=== PATIENT | male | born 1930 | race Caucasian/White ===

== ENCOUNTER 2018-07-01 14:35 | Emergency (ER) | payer MEDICARE, BC ==
[2018-07-01 14:51] VITALS: BP 160/68
[2018-07-01] MEDS ORDERED: Acetaminophen 325 MG Tab PO ONE (15:06)
--- NOTE | 2018-07-01 15:06 | EDM.PDOC ---
ED HPI GENERAL MEDICAL PROBLEM - General Chief Complaint: Genitourinary Problem Stated Complaint: UNABLE TO URINATE Time Seen by Provider: 07/01/18 15:01 Source of Information: Reports: Patient, Family ( and daughter) History Limitations: Reports: Other (Mildly hard of hearing.) - History of Present Illness INITIAL COMMENTS - FREE TEXT/NARRATIVE: 80-year-old male attends the ED at the request of the walk-in clinic across the street. He presented there and he was hypoxic with O2 sats of 88%. Pristiq complaint was burning her severe dysuria with urination. States he last went about 11:00 this morning. They also identified him to be febrile 102.3. This cannot be confirmed here his temp to here is 99.1. Patient denies any chills or fever. States he ate a good dinner and some breakfast. No nausea or vomiting. Bowels did work normally this morning. He said previous prostate cancer with cesium seed implants many years ago. Last PSA was less than 0.01. Sed prostate infection or bladder infection recently. States it wesley at the initiation of voiding. Has not any hematuria. Onset: Sudden Onset Date: 06/30/18 Duration: Hour(s): (Noticed some mild burning with voiding yesterday evening but worse this morning overnight.) Location: Reports: Other (Dysuria is not aware that he had a fever. He's always short of breath on exertion.) Quality: Reports: Other Severity: Moderate (Dyspnea on exertion moderate dysuria) Improves with: Reports: Rest Worsens with: Reports: None Context: Denies: Activity, Exercise, Lifting, Sick Contact, Trauma, Other Associated Symptoms: Reports: Cough, Malaise, Shortness of Breath (Chronically) . Denies: No Other Symptoms, Confusion, Chest Pain, cough w sputum (Chronic cough nonproductive), Diaphoresis, Fever/Chills, Headaches Treatments ASSISTANT DEAN OF STUDENTS: Reports: Other (see below) Other Treatments ASSISTANT DEAN OF STUDENTS: none Bladder Pain Score (Numeric/FACES): 5 - Related Data Allergies Allergy/AdvReac Type Severity Reaction Status Date / Time No Known Allergies Allergy Verified 06/08/14 18:58 Home Meds: Home Meds Bicalutamide [Casodex] 50 mg PO DAILY 06/08/14 [History] Doxazosin [Cardura] 2 mg PO DAILY 06/08/14 [History] Metoprolol Tartrate 100 mg PO DAILY 06/08/14 [History] Quinapril [Accupril] 40 mg PO DAILY 06/08/14 [History] Simvastatin [Zocor] 20 mg PO DAILY 06/08/14 [History] Verapamil HCl [Verapamil ER] 240 mg PO DAILY 06/08/14 [History] hydroCHLOROthiazide [Hydrochlorothiazide] 25 mg PO DAILY 06/08/14 [History] levoFLOXacin [Levaquin] 500 mg PO DAILY #9 tab 07/01/18 [Rx] Past Medical History HEENT History: Reports: Cataract Cardiovascular History: Reports: High Cholesterol, Hypertension Gastrointestinal History: Reports: Chronic Constipation Genitourinary History: Reports: Prostate Disorder, Other (See Below) Other Genitourinary History: void issues Oncologic (Cancer) History: Reports: Prostate Social & Family History - Living Situation & Occupation Living situation: Reports: Occupation: Retired ED ROS GENERAL - Review of Systems Review Of Systems: See Below Constitutional: Reports: Malaise, Fatigue. Denies: Fever, Chills, Decreased Appetite HEENT: Reports: Glasses, Hearing Loss (Moderate) Respiratory: Reports: Shortness of Breath, Cough. Denies: Wheezing, Pleuritic Chest Pain (On exertion chronically), Sputum Cardiovascular: Reports: Blood Pressure Problem, Dyspnea on Exertion ( Chronically), Lightheadedness. Denies: Chest Pain, Claudication, Edema, Orthopnea (On medication for hypertension) Endocrine: Reports: Fatigue GI/Abdominal: Denies: Abdominal Pain, Constipation : Reports: Other (Some urinary dribbling since he had prostate treated with cesium seed implants greater than 20 years ago. Previous history of prostate cancer. Last PSA was less than 0.1) Musculoskeletal: Reports: Neck Pain, Shoulder Pain, Back Pain, Joint Pain ( Knees and hips) Skin: Reports: No Symptoms Neurological: Reports: Other Psychiatric: Reports: No Symptoms (Mild short-term memory impairment) Hematologic/Lymphatic: Reports: No Symptoms Immunologic: Reports: No Symptoms ED EXAM, RENAL/ - Physical Exam Exam: See Below Exam Limited By: No Limitations General Appearance: Alert, WD/WN, No Apparent Distress, Other (Test feel mildly warm to palpation.) Respiratory/Chest: No Accessory Muscle Use, Rales (Patient has been on to the lower 25% of both lung lane slightly worse on the right side as compared to the left.). No: Lungs Clear, Normal Breath Sounds, Respiratory Distress, Rhonchi, Wheezing Cardiovascular: Regular Rate, Rhythm, No Gallop, No Murmur, No Rub. No: Normal Peripheral Pulses, No Edema GI/Abdominal: Normal Bowel Sounds, Soft, Non-Tender, No Organomegaly, No Abnormal Bruit, No Mass, Pelvis Stable, Other (Bladder is not palpable abdominally.) Back Exam: Normal Inspection, Decreased Range of Motion. 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 There is also Q waves in 3 and aVF compatible with old inferior wall myocardial infarction. There is decreased voltage in both the limb and precordial leads compose COPD pattern.) ST-T: Normal QT: Normal EKG Interpretation Comments: Abnormal ECG Course - Vital Signs Last Recorded V/S: Last Vital Signs Temp 37.4 C 07/01/18 15:36 Pulse 86 07/01/18 14:50 Resp 14 07/01/18 14:50 BP 160/68 H 07/01/18 14:50 Pulse Ox 93 L 07/01/18 15:54 - Orders/Labs/Meds Orders: Active Orders 24 hr Category Date Time Status Bladder Scan [RC] ASDIRECTED Care 07/01/18 15:03 Active EKG Documentation Completion [RC] STAT Care 07/01/18 15:02 Active Oxygen Therapy [RC] ASDIRECTED Care 07/01/18 15:02 Active Peripheral IV Care [RC] . DIRECTED Care 07/01/18 15:11 Active CULTURE BLOOD [BC] Stat Lab 07/01/18 15:15 Received CULTURE BLOOD [BC] Stat Lab 07/01/18 15:30 Received CULTURE URINE [RM] Stat Lab 12/30/18 15:11 Ordered Blood Culture x2 Reflex Set [OM.PC] Stat Oth 07/01/18 15:02 Ordered Peripheral IV Insertion Adult [OM.PC] Stat Oth 07/01/18 15:11 Ordered Labs: Laboratory Tests 07/01/18 07/01/18 07/01/18 Range/Units 15:15 15:15 15:15 WBC 6.04 (4.23-9.07) K/mm3 RBC 4.34 L (4.63-6.08) M/mm3 Hgb 13.3 L (13.7-17.5) gm/L Hct 41.0 (40.1-51.0) % MCV 94.5 H (79.0-92.2) fl MCH 30.6 (25.7-32.2) pg MCHC 32.4 (32.2-35.5) g/dl RDW Std Deviation 43.4 (35.1-43.9) fL Plt Count 167 (163-337) K/mm3 MPV 10.1 (9.4-12.3) fl Neutrophils % (Manual) 62 H (40-60) % Band Neutrophils % 1 (0-10) % Lymphocytes % (Manual) 22 (20-40) % Atypical Lymphs % 0 % Monocytes % (Manual) 13 H (2-10) % Eosinophils % (Manual) 2 (0.8-7.0) % Basophils % (Manual) 0 L (0.2-1.2) Toxic Granulation 1+ slight Platelet Estimate Adequate Plt Morphology Comment Normal RBC Morph Comment Normal PT 10.6 (9.5-12.1) SECONDS INR 0.97 Sodium 145 (136-145) mEq/L Potassium 4.2 (3.5-5.1) mEq/L Chloride 104 (98-107) mEq/L Carbon Dioxide 34 H (21-32) mEq/L Anion Gap 11.2 (5-15) BUN 40 H (7-18) mg/dL Creatinine 1.8 H (0.7-1.3) mg/dL Est Cr Clr Drug Dosing 30.21 mL/min Estimated GFR (MDRD) 36 (>60) mL/min BUN/Creatinine Ratio 22.2 H (14-18) Glucose 142 H (83-115) mg/dL Calcium 9.3 (8.5-10.1) mg/dL Magnesium 2.2 (1.8-2.4) mg/dl Total Bilirubin 0.3 (0.2-1.0) mg/dL AST 20 (15-37) U/L ALT 25 (16-63) U/L Alkaline Phosphatase 68 (46-116) U/L CK-MB (CK-2) 1.6 (0-3.6) ng/ml Troponin I < 0.017 (0.00-0.056) ng/mL C-Reactive Protein < 0.2 (<1.0) mg/dL NT-Pro-B Natriuret Pep (0-450) pg/mL Total Protein 7.4 (6.4-8.2) g/dl Albumin 3.7 (3.4-5.0) g/dl Globulin 3.7 gm/dL Albumin/Globulin Ratio 1.0 (1-2) Urine Color (Yellow) Urine Appearance (Clear) Urine pH (5.0-8.0) Ur Specific [place] (1.005-1.030) Urine Protein (Negative) Urine Glucose (UA) (Negative) Urine Ketones (Negative) Urine Occult Blood (Negative) Urine Nitrite (Negative) Urine Bilirubin (Negative) Urine Urobilinogen (0.2-1.0) Ur Leukocyte Esterase (Negative) Urine RBC (0-5) /hpf Urine WBC (0-5) /hpf Ur Epithelial Cells Ur Squamous Epith Cells (0-5) /hpf Urine Bacteria (FEW) /hpf Hyaline Casts (0-5) /lpf Urine Mucus (FEW) /hpf 07/01/18 07/01/18 Range/Units 15:15 16:00 WBC (4.23-9.07) K/mm3 RBC (4.63-6.08) M/mm3 Hgb (13.7-17.5) gm/L Hct (40.1-51.0) % MCV (79.0-92.2) fl MCH (25.7-32.2) pg MCHC (32.2-35.5) g/dl RDW Std Deviation (35.1-43.9) fL Plt Count (163-337) K/mm3 MPV (9.4-12.3) fl Neutrophils % (Manual) (40-60) % Band Neutrophils % (0-10) % Lymphocytes % (Manual) (20-40) % Atypical Lymphs % % Monocytes % (Manual) (2-10) % Eosinophils % (Manual) (0.8-7.0) % Basophils % (Manual) (0.2-1.2) Toxic Granulation Platelet Estimate Plt Morphology Comment RBC Morph Comment PT (9.5-12.1) SECONDS INR Sodium (136-145) mEq/L Potassium (3.5-5.1) mEq/L Chloride (98-107) mEq/L Carbon Dioxide (21-32) mEq/L Anion Gap (5-15) BUN (7-18) mg/dL Creatinine (0.7-1.3) mg/dL Est Cr Clr Drug Dosing mL/min Estimated GFR (MDRD) (>60) mL/min BUN/Creatinine Ratio (14-18) Glucose (83-115) mg/dL Calcium (8.5-10.1) mg/dL Magnesium (1.8-2.4) mg/dl Total Bilirubin (0.2-1.0) mg/dL AST (15-37) U/L ALT (16-63) U/L Alkaline Phosphatase (46-116) U/L CK-MB (CK-2) (0-3.6) ng/ml Troponin I (0.00-0.056) ng/mL C-Reactive Protein (<1.0) mg/dL NT-Pro-B Natriuret Pep 90 (0-450) pg/mL Total Protein (6.4-8.2) g/dl Albumin (3.4-5.0) g/dl Globulin gm/dL Albumin/Globulin Ratio (1-2) Urine Color Yellow (Yellow) Urine Appearance Slt cloudy H (Clear) Urine pH 7.5 (5.0-8.0) Ur Specific [place] 1.020 (1.005-1.030) Urine Protein Trace H (Negative) Urine Glucose (UA) Negative (Negative) Urine Ketones Negative (Negative) Urine Occult Blood Negative (Negative) Urine Nitrite Negative (Negative) Urine Bilirubin Negative (Negative) Urine Urobilinogen 0.2 (0.2-1.0) Ur Leukocyte Esterase Negative (Negative) Urine RBC Not seen (0-5) /hpf Urine WBC Not seen (0-5) /hpf Ur Epithelial Cells Not Reportable Ur Squamous Epith Cells Not seen (0-5) /hpf Urine Bacteria Not seen (FEW) /hpf Hyaline Casts 0-5 (0-5) /lpf Urine Mucus Rare H (FEW) /hpf Meds: Medications Discontinued Medications Generic Name Dose Route Start Last Admin Trade Name Shyann PRN Reason Stop Dose Admin Acetaminophen 650 mg 07/01/18 15:06 07/01/18 15:36 Tylenol PO 07/01/18 15:07 650 mg NOW ONE Administration Furosemide 40 mg 07/01/18 15:11 07/01/18 15:50 Lasix IVPUSH 07/01/18 15:12 40 mg NOW ONE Administration Ceftriaxone Sodium 2 gm/ 100 mls @ 200 mls/hr 07/01/18 17:30 07/01/18 17:47 Sodium Chloride IV 200 mls/hr Q24H [place] Administration Levofloxacin 500 mg 07/01/18 17:23 07/01/18 17:46 Levaquin PO 07/01/18 17:24 500 mg ONETIME ONE Administration Sodium Chloride 10 ml 07/01/18 15:11 07/01/18 15:50 Saline Flush FLUSH 10 ml ASDIRECTED PRN Administration Keep Vein Open - Radiology Interpretation Free Text/Narrative:: 88-year-old male presents to the ED with a low-grade fever hypoxia at rest 88-90 % on room air. History of complete however his dysuria that started last evening and is worsened today. Feels like he does not empty his bladder completely. She said previous prostate cancer treated by cesium seed implants. Patient has a low-grade fever clinically and he is hypoxic at 88% on room air. Clinically he is in congestive heart failure with crackles bilaterally to the lower 20-25% of lung lane bilaterally. Plan oxygen at 3 L/m by nasal cannula. We'll give him Lasix 40 mg IV. Given Tylenol 650 mg by mouth for fever relief. Urinalysis and urine culture. One view chest x-ray. Routine labs include cardiac markers and BNP and serum magnesium. - Re-Assessments/Exams Free Text/Narrative Re-Assessment/Exam: 07/01/18 16:55 Labs reveal a normal white count at 6.04. 62% neutrophils 1% band cells. Hemoglobin is 13.3 with hematocrit of 41.0. MCV is slightly elevated at 94.5. PT is 10.6 with an INR of 0.97. Sodium 145 with a potassium of 4.2. Chloride 104 the bicarbonate 34 i.e. CO2 retainer. Anion gap is 11.2. B1 is 40 with a creatinine of 1.8. Estimated GFR is only 36 a stage III chronic kidney disease. Glucose is 142. Calcium is 9.3. Magnesium normal at 2.2. Liver function is normal. CPK MB fraction is 1.6. Troponin I is less than 0.017. C- reactive protein is less than 0.2. BNP is 90. Urinalysis is pending 07/01/18 17:17 Urinalysis is slightly cloudy but essentially negative for infection. For likely has a mild degree of prostatitis with urethritis causing his current symptoms. Placed him on Levaquin 500 mg daily for the next 10 days. Chest x-ray reveals minimal discoid atelectasis both lung bases. Lungs are otherwise clear. 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 Bony structures are quite osteopenic. Degenerative changes are noted with spurring throughout the mid thoracic spine. 07/01/18 17:23 patient still has a low-grade fever clinically. His BNP came back and 90 therefore the crackles I can hear both lung bases are secondary to pulmonary fibrosis she shows no signs of congestive failure. He still has significant dysuria and I suspect has urethritis prostatitis. I'm going to give him a 2 g of Rocephin IV and Levaquin 500 mg by mouth. The plan would still be a to allow him to go home on Levaquin 500 milligrams daily for the next 9 days. 07/01/18 18:24 patient has voided about 1000 mils of urine since having the Lasix 40 mg IV given initially as I felt he was in congestive heart failure. However his BNP came back and 90. On reassessment he still has significant crackles at both bases this is going to be due to pulmonary fibrosis of which the patient was not aware of nor was I. Is completed a 2 g of Rocephin IV and will be discharged to home. First dose of Levaquin 500 mg as be given IV as well for severe dysuria likely due to low-grade urethritis possible prostatitis. He still is a low-grade fever. His white count however is within the normal range. I'm going to place him on Levaquin 500 mg daily for another 9 days and they request this be sent to [facility] pharmacy. He may have it delivered tomorrow. Departure - Departure Time of Disposition: 18:25 Disposition: Home, Self-Care 01 Condition: Fair Clinical Impression: UTI, Urinary tract infectious disease - Discharge Information *PRESCRIPTION DRUG MONITORING PROGRAM REVIEWED*: Not Applicable *COPY OF PRESCRIPTION DRUG MONITORING REPORT IN PATIENT MARGARITO: Not Applicable Prescriptions: levoFLOXacin [Levaquin] 500 mg PO DAILY #9 tab Instructions: Urinary Tract Infection, Adult Referrals: Maurice Liz MD [Primary Care Provider] - Forms: ED Department Discharge Additional Instructions: Evaluation in the emergency room today in regards to development of significant dysuria which means painful urination especially at the start of voiding. This suggests there is infection in the urethra and likely where travels through the prostate gland were you have had previous cancer. The urinalysis proved to show only a small amount of pus cells. You do have a low-grade fever however. Remainder the examination revealed a normal white count at this time with no signs of severe systemic infection. Listening to your lungs. That you had a lot of fluid buildup in your lungs but this proved to be due to scar tissue and the bottom of both lungs which we call pulmonary fibrosis. Failure were normal. Sign of heart related illness. Continue Tylenol 650 mg every 4-6 hours as needed for fever relief. Antibiotics were started in the emergency room Rocephin 2 g IV and Levaquin 500 mg by mouth. He will need to take Levaquin 500 mg once daily for the next 9 days every day at suppertime. Send prescription to her [facility] pharmacy and you could call them in the morning to have a delay relative this is your desire. - My Orders Last 24 Hours: My Active Orders 07/01/18 15:02 EKG Documentation Completion [RC] STAT Oxygen Therapy [RC] ASDIRECTED Blood Culture x2 Reflex Set [OM.PC] Stat 07/01/18 15:03 Bladder Scan [RC] ASDIRECTED 07/01/18 15:11 Peripheral IV Care [RC] . DIRECTED CULTURE URINE [RM] Stat Peripheral IV Insertion Adult [OM.PC] Stat 07/01/18 15:15 CULTURE BLOOD [BC] Stat 07/01/18 15:30 CULTURE BLOOD [BC] Stat - Assessment/Plan Last 24 Hours: My Active Orders 07/01/18 15:02 EKG Documentation Completion [RC] STAT Oxygen Therapy [RC] ASDIRECTED Blood Culture x2 Reflex Set [OM.PC] Stat 07/01/18 15:03 Bladder Scan [RC] ASDIRECTED 07/01/18 15:11 Peripheral IV Care [RC] . DIRECTED CULTURE URINE [RM] Stat Peripheral IV Insertion Adult [OM.PC] Stat 07/01/18 15:15 CULTURE BLOOD [BC] Stat 07/01/18 15:30 CULTURE BLOOD [BC] Stat
[2018-07-01] MEDS ORDERED: Furosemide 40 MG/4 ML VIAL IVPUSH ONE (15:11)
[2018-07-01] MEDS ORDERED: Sodium Chloride 0.9% 10 ML Syringe FLUSH PRN (15:11)
[2018-07-01] MEDS ORDERED: Levofloxacin 250 MG Tab PO ONE (17:23)
[2018-07-01] MEDS ORDERED: cefTRIAXone 2 GM in Sodium Chloride 0.9% 100 ML IV SCH (17:30)
--- NOTE | 2018-07-01 17:58 | CR ---
Chest: Portable view of the chest was obtained. Comparison: No prior chest x-ray is available. Minimal discoid atelectasis is seen within both lung bases. Lungs otherwise are clear. Heart size is normal. Ectatic or aneurysmal thoracic aorta is noted. Bony structures are osteopenic. Slight degenerative endplate spurring is scattered within the spine. Impression: 1. Ectatic or aneurysmal thoracic aorta. 2. Minimal basilar atelectasis. 3. Other incidental findings. Nothing acute is seen. Diagnostic code #2
== END 2018-07-01 18:40 | disposition home or self-care (01) ==
LOC: JD.ED 14:35
DX: N39.0 Urinary tract infection, site not specified (principal); R06.02 Shortness of breath; I10 Essential (primary) hypertension; Z79.899 Other long term (current) drug therapy
CPT/HCPCS: 36415; 51798; 71045; 80053; 81001; 82553; 83735; 83880; 84484; 85007; 85027; 85610; 86140; 87040; 87086; 93005; 96365; 96375; 99284; A9270; J0696; J1940; J7030

== ENCOUNTER 2018-10-02 07:50 | Emergency (ER) | payer MEDICARE, BC ==
--- NOTE | 2018-10-02 08:44 | EDM.PDOC ---
ED HPI GENERAL MEDICAL PROBLEM - General Chief Complaint: Genitourinary Problem Stated Complaint: TROUBLE URINATING Time Seen by Provider: 10/02/18 08:10 Source of Information: Reports: Patient, RN Notes Reviewed - History of Present Illness INITIAL COMMENTS - FREE TEXT/NARRATIVE: 88 year old male comes in with voiding dysuria, urgency, frequency than started about a week ago, on azo but "not helping much". No fever, chills, nausea or vomiting. No abd. pain. He has had similar sx, problems in the past. Hx of prostate cancer, treated with radioactive seeds many yrs ago, recent lupron shot just over a week ago. He is noted to be hypoxic on arrival to ED. No chest pain, does not feel short of breath. No recent cough or fever. - Related Data Allergies Allergy/AdvReac Type Severity Reaction Status Date / Time No Known Allergies Allergy Verified 10/02/18 08:01 Home Meds: Home Meds Bicalutamide [Casodex] 50 mg PO DAILY 06/08/14 [History] Doxazosin [Cardura] 2 mg PO DAILY 06/08/14 [History] Quinapril [Accupril] 40 mg PO DAILY 06/08/14 [History] Fish Oil/[place]-3 Fatty Acids [Fish Oil 1,000 MG] 0 mg PO DAILY 10/02/18 [History ] Furosemide [Lasix] 40 mg PO DAILY 10/02/18 [History] Multivitamin [Multivitamins] 1 cap PO DAILY 10/02/18 [History] NIFEdipine [Nifedipine ER] 60 mg PO DAILY 10/02/18 [History] Phenazopyridine HCl [Azo Urinary Pain Relief] 0 mg PO DAILY 10/02/18 [History] Rosuvastatin [Crestor] 0 mg PO BEDTIME 10/02/18 [History] Temazepam [Restoril] 15 mg PO BEDTIME 10/02/18 [History] Ubidecarenone [COQ-10] 0 mg PO DAILY 10/02/18 [History] Past Medical History HEENT History: Reports: Cataract Cardiovascular History: Reports: High Cholesterol, Hypertension Gastrointestinal History: Reports: Chronic Constipation Genitourinary History: Reports: Prostate Disorder, Other (See Below) Other Genitourinary History: void issues Musculoskeletal History: Reports: Fracture Oncologic (Cancer) History: Reports: Prostate Social & Family History - Tobacco Use Smoking Status *Q: Never Smoker Second Hand Smoke Exposure: No - Caffeine Use Caffeine Use: Reports: None - Recreational Drug Use Recreational Drug Use: No - Living Situation & Occupation Living situation: Reports: Occupation: Retired ED ROS GENERAL - Review of Systems Review Of Systems: See Below Constitutional: Denies: Fever, Chills, Diaphoresis HEENT: Denies: Throat Pain Respiratory: Denies: Shortness of Breath (pt is hypoxic on arrival to ED but denies feeling short of breath) Cardiovascular: Denies: Chest Pain GI/Abdominal: Denies: Abdominal Pain, Nausea, Vomiting : Reports: Dysuria, Frequency, Urgency Musculoskeletal: Denies: Leg Pain Skin: Reports: No Symptoms Neurological: Reports: Weakness (chronic generalized, does not ambulate) ED EXAM, RENAL/ - Physical Exam Exam: See Below General Appearance: Alert, No Apparent Distress Eye Exam: Bilateral Eye: PERRL Throat/Mouth: Normal Inspection, Normal Oropharynx Head: Atraumatic Neck: Supple Respiratory/Chest: No Respiratory Distress, Lungs Clear, Normal Breath Sounds, Rales (mild bilat). No: Rhonchi, Wheezing Cardiovascular: Regular Rate, Rhythm GI/Abdominal: Soft, Non-Tender Back Exam: No: CVA Tenderness (L), CVA Tenderness (R) Extremities: Normal Inspection. No: Pedal Edema, Leg Pain, Increased Warmth, Redness Neurological: Alert, Other (no focal weakness) Skin Exam: Warm, Dry, Normal Color EKG INTERPRETATION Rhythm: NSR Rate (Beats/Min): 87 [place]: Normal P-Wave: Present (prolonged pr interval) QRS: Normal ST-T: Elevated (slight st elevation) Course - Vital Signs Last Recorded V/S: Last Vital Signs Temp 98.3 F 10/02/18 16:45 Pulse 66 10/02/18 16:45 Resp 18 10/02/18 16:45 BP 146/71 H 10/02/18 16:45 Pulse Ox 96 10/02/18 16:45 - Orders/Labs/Meds Orders: Active Orders 24 hr Category Date Time Status EKG 12 Lead [EKG Documentation Completion] [RC] STAT Care 10/02/18 10:40 Active Oxygen Therapy [RC] ASDIRECTED Care 10/02/18 08:35 Active RT Aerosol Therapy [RC] ASDIRECTED Care 10/02/18 08:45 Active Labs: Laboratory Tests 10/02/18 10/02/18 10/02/18 Range/Units 08:52 08:52 08:52 WBC 6.31 (4.23-9.07) K/mm3 RBC 4.72 (4.63-6.08) M/mm3 Hgb 14.5 (13.7-17.5) gm/L Hct 45.3 (40.1-51.0) % MCV 96.0 H (79.0-92.2) fl MCH 30.7 (25.7-32.2) pg MCHC 32.0 L (32.2-35.5) g/dl RDW Std Deviation 44.5 H (35.1-43.9) fL Plt Count 169 (163-337) K/mm3 MPV 9.8 (9.4-12.3) fl Neut % (Auto) 75.0 H (34.0-67.9) % Lymph % (Auto) 17.0 L (21.8-53.1) % [place] % (Auto) 7.0 (5.3-12.2) % Eos % (Auto) 0.6 L (0.8-7.0) Baso % (Auto) 0.2 (0.1-1.2) % Neut # (Auto) 4.74 (1.78-5.38) K/mm3 Lymph # (Auto) 1.07 L (1.32-3.57) K/mm3 [place] # (Auto) 0.44 (0.30-0.82) K/mm3 Eos # (Auto) 0.04 (0.04-0.54) K/mm3 Baso # (Auto) 0.01 (0.01-0.08) K/mm3 D-Dimer, Quantitative (0.19-0.50) mg/L Puncture Site ABG pH (7.35-7.45) ABG pCO2 (35.0-45.0) mmHg ABG pO2 (80.0-100.0) mmHg ABG HCO3 (22.0-26.0) meq/L ABG O2 Saturation (96.0-97.0) % ABG Base Excess (-2-2.0) Edson Test A-a Gradient mmHg O2 Delivery Device Oxygen Flow Rate FiO2 (21.00-100.00) % Sodium 144 (136-145) mEq/L Potassium 4.7 (3.5-5.1) mEq/L Chloride 105 (98-107) mEq/L Carbon Dioxide 35 H (21-32) mEq/L Anion Gap 8.7 (5-15) BUN 35 H (7-18) mg/dL Creatinine 1.7 H (0.7-1.3) mg/dL Est Cr Clr Drug Dosing 33.94 mL/min Estimated GFR (MDRD) 38 (>60) mL/min BUN/Creatinine Ratio 20.6 H (14-18) Glucose 176 H (83-115) mg/dL Calcium 9.5 (8.5-10.1) mg/dL Total Bilirubin 0.5 (0.2-1.0) mg/dL AST 20 (15-37) U/L ALT 25 (16-63) U/L Alkaline Phosphatase 65 (46-116) U/L Troponin I (0.00-0.056) ng/mL NT-Pro-B Natriuret Pep 126 (0-450) pg/mL Total Protein 7.4 (6.4-8.2) g/dl Albumin 3.8 (3.4-5.0) g/dl Globulin 3.6 gm/dL Albumin/Globulin Ratio 1.1 (1-2) Urine Color Urine Appearance Urine pH Ur Specific [place] Urine Protein Urine Glucose (UA) Urine Ketones Urine Occult Blood Urine Nitrite Urine Bilirubin Urine Urobilinogen Ur Leukocyte Esterase Urine RBC Urine WBC Urine WBC Clumps Ur Epithelial Cells Ur Squamous Epith Cells Ur Transition Epith Cell Ur Renal Epithelial Cell [place] Biurate Crystals Calcium Carbonate Cryst Calcium Phosphate Cryst Calcium Oxalate Crystal Leucine Crystals Cystine Crystals Uric Acid Crystals Triple Phos Crystals Sodium Urate Crystals Tyrosine Crystals Other Crystals Amorphous Sediment Urine Bacteria Epithelial Casts Fatty Casts Hyaline Casts Fine Granular Casts Coarse Granular Casts Waxy Casts Broad Casts RBC Casts WBC Casts Urine Mucus Urine Other Urine Trichomonas Urine Yeast Ur Yeast w Hyphae Urine Yeast (Budding) Ur Oval Fat Bodies Urinalysis Comment 10/02/18 10/02/18 10/02/18 Range/Units 08:52 08:52 09:30 WBC (4.23-9.07) K/mm3 RBC (4.63-6.08) M/mm3 Hgb (13.7-17.5) gm/L Hct (40.1-51.0) % MCV (79.0-92.2) fl MCH (25.7-32.2) pg MCHC (32.2-35.5) g/dl RDW Std Deviation (35.1-43.9) fL Plt Count (163-337) K/mm3 MPV (9.4-12.3) fl Neut % (Auto) (34.0-67.9) % Lymph % (Auto) (21.8-53.1) % [place] % (Auto) (5.3-12.2) % Eos % (Auto) (0.8-7.0) Baso % (Auto) (0.1-1.2) % Neut # (Auto) (1.78-5.38) K/mm3 Lymph # (Auto) (1.32-3.57) K/mm3 [place] # (Auto) (0.30-0.82) K/mm3 Eos # (Auto) (0.04-0.54) K/mm3 Baso # (Auto) (0.01-0.08) K/mm3 D-Dimer, Quantitative 0.99 H (0.19-0.50) mg/L Puncture Site ABG pH (7.35-7.45) ABG pCO2 (35.0-45.0) mmHg ABG pO2 (80.0-100.0) mmHg ABG HCO3 (22.0-26.0) meq/L ABG O2 Saturation (96.0-97.0) % ABG Base Excess (-2-2.0) Edson Test A-a Gradient mmHg O2 Delivery Device Oxygen Flow Rate FiO2 (21.00-100.00) % Sodium (136-145) mEq/L Potassium (3.5-5.1) mEq/L Chloride (98-107) mEq/L Carbon Dioxide (21-32) mEq/L Anion Gap (5-15) BUN (7-18) mg/dL Creatinine (0.7-1.3) mg/dL Est Cr Clr Drug Dosing mL/min Estimated GFR (MDRD) (>60) mL/min BUN/Creatinine Ratio (14-18) Glucose (83-115) mg/dL Calcium (8.5-10.1) mg/dL Total Bilirubin (0.2-1.0) mg/dL AST (15-37) U/L ALT (16-63) U/L Alkaline Phosphatase (46-116) U/L Troponin I < 0.017 (0.00-0.056) ng/mL NT-Pro-B Natriuret Pep (0-450) pg/mL Total Protein (6.4-8.2) g/dl Albumin (3.4-5.0) g/dl Globulin gm/dL Albumin/Globulin Ratio (1-2) Urine Color Cancelled Urine Appearance Cancelled Urine pH Cancelled Ur Specific [place] Cancelled Urine Protein Cancelled Urine Glucose (UA) Cancelled Urine Ketones Cancelled Urine Occult Blood Cancelled Urine Nitrite Cancelled Urine Bilirubin Cancelled Urine Urobilinogen Cancelled Ur Leukocyte Esterase Cancelled Urine RBC Cancelled Urine WBC Cancelled Urine WBC Clumps Cancelled Ur Epithelial Cells Cancelled Ur Squamous Epith Cells Cancelled Ur Transition Epith Cell Cancelled Ur Renal Epithelial Cell Cancelled Zach Biurate Crystals Cancelled Calcium Carbonate Cryst Cancelled Calcium Phosphate Cryst Cancelled Calcium Oxalate Crystal Cancelled Leucine Crystals Cancelled Cystine Crystals Cancelled Uric Acid Crystals Cancelled Triple Phos Crystals Cancelled Sodium Urate Crystals Cancelled Tyrosine Crystals Cancelled Other Crystals Cancelled Amorphous Sediment Cancelled Urine Bacteria Cancelled Epithelial Casts Cancelled Fatty Casts Cancelled Hyaline Casts Cancelled Fine Granular Casts Cancelled Coarse Granular Casts Cancelled Waxy Casts Cancelled Broad Casts Cancelled RBC Casts Cancelled WBC Casts Cancelled Urine Mucus Cancelled Urine Other Cancelled Urine Trichomonas Cancelled Urine Yeast Cancelled Ur Yeast w Hyphae Cancelled Urine Yeast (Budding) Cancelled Ur Oval Fat Bodies Cancelled Urinalysis Comment Cancelled 10/02/18 10/02/18 10/02/18 Range/Units 09:30 10:10 16:19 WBC (4.23-9.07) K/mm3 RBC (4.63-6.08) M/mm3 Hgb (13.7-17.5) gm/L Hct (40.1-51.0) % MCV (79.0-92.2) fl MCH (25.7-32.2) pg MCHC (32.2-35.5) g/dl RDW Std Deviation (35.1-43.9) fL Plt Count (163-337) K/mm3 MPV (9.4-12.3) fl Neut % (Auto) (34.0-67.9) % Lymph % (Auto) (21.8-53.1) % [place] % (Auto) (5.3-12.2) % Eos % (Auto) (0.8-7.0) Baso % (Auto) (0.1-1.2) % Neut # (Auto) (1.78-5.38) K/mm3 Lymph # (Auto) (1.32-3.57) K/mm3 [place] # (Auto) (0.30-0.82) K/mm3 Eos # (Auto) (0.04-0.54) K/mm3 Baso # (Auto) (0.01-0.08) K/mm3 D-Dimer, Quantitative (0.19-0.50) mg/L Puncture Site Lt radial Lt radial ABG pH 7.38 7.40 (7.35-7.45) ABG pCO2 60.4 H 57.7 H (35.0-45.0) mmHg ABG pO2 46.0 L 59.0 L (80.0-100.0) mmHg ABG HCO3 35.1 H 34.6 H (22.0-26.0) meq/L ABG O2 Saturation 76.5 L 87.6 L (96.0-97.0) % ABG Base Excess 8.2 H 8.2 H (-2-2.0) Edson Test Positive Positive A-a Gradient 13 48 mmHg O2 Delivery Device Room air Nasal cannula Oxygen Flow Rate 2.0 FiO2 21.00 28.00 (21.00-100.00) % Sodium (136-145) mEq/L Potassium (3.5-5.1) mEq/L Chloride (98-107) mEq/L Carbon Dioxide (21-32) mEq/L Anion Gap (5-15) BUN (7-18) mg/dL Creatinine (0.7-1.3) mg/dL Est Cr Clr Drug Dosing mL/min Estimated GFR (MDRD) (>60) mL/min BUN/Creatinine Ratio (14-18) Glucose (83-115) mg/dL Calcium (8.5-10.1) mg/dL Total Bilirubin (0.2-1.0) mg/dL AST (15-37) U/L ALT (16-63) U/L Alkaline Phosphatase (46-116) U/L Troponin I (0.00-0.056) ng/mL NT-Pro-B Natriuret Pep (0-450) pg/mL Total Protein (6.4-8.2) g/dl Albumin (3.4-5.0) g/dl Globulin gm/dL Albumin/Globulin Ratio (1-2) Urine Color Y Urine Appearance Clear Urine pH 6.0 Ur Specific [place] 1.015 Urine Protein 1+ H Urine Glucose (UA) Negative Urine Ketones Negative Urine Occult Blood Negative Urine Nitrite Positive H Urine Bilirubin Negative Urine Urobilinogen 0.2 Ur Leukocyte Esterase Negative Urine RBC 0-5 Urine WBC Not seen Urine WBC Clumps Ur Epithelial Cells 0-5 Ur Squamous Epith Cells Ur Transition Epith Cell Ur Renal Epithelial Cell [place] Biurate Crystals Calcium Carbonate Cryst Calcium Phosphate Cryst Calcium Oxalate Crystal Leucine Crystals Cystine Crystals Uric Acid Crystals Triple Phos Crystals Sodium Urate Crystals Tyrosine Crystals Other Crystals Amorphous Sediment Urine Bacteria Few Epithelial Casts Fatty Casts Hyaline Casts Fine Granular Casts Coarse Granular Casts Waxy Casts Broad Casts RBC Casts WBC Casts Urine Mucus Rare H Urine Other Urine Trichomonas Urine Yeast Ur Yeast w Hyphae Urine Yeast (Budding) Ur Oval Fat Bodies Urinalysis Comment Meds: Medications Discontinued Medications Generic Name Dose Route Start Last Admin Trade Name Freq PRN Reason Stop Dose Admin Albuterol/Ipratropium 3 ml 10/02/18 08:45 10/02/18 09:05 Duoneb 3.0-0.5 Mg/3 Ml NEB 10/02/18 08:46 3 ml ONETIME ONE Administration Furosemide 40 mg 10/02/18 09:03 10/02/18 09:14 Lasix PO 10/02/18 09:04 40 mg ONETIME ONE Administration - Re-Assessments/Exams Free Text/Narrative Re-Assessment/Exam: 10/02/18 10;45. Have concern about patient's relative hypoxia. Sats only about 84 % room air at time of triage. with 02 2 L came up to 91 to 92 %. We did give lasix 40 mg PO, gave a duoneb. Than checked ABG's room air which showed p 02 of only 46, see results. Discussed with his provider Dr Shalonda who states this is below his baseline, concerned for underlying illness. Believes he should be admitted for further eval and treatment. Continued work up with a trop that came back neg., pro BNP nl, D Dimer very mildly elevated but not very worrisome for age. Creatnine is 1.7 so do not want to do a CT pul angiogram. Will get a VQ scan. Ua does not show any positive findings for UTI. VQ scan can be done about 2 PM today. 11:[address] Rodriguez, Hospitalist who is aware of findings this far, plan for admission. 15:00. VQ scan is read out at low probability for PE, see report for details. Pending admission. 10/02/18 15:45 Dr Gibson, Dr Sanderson. have reviewed labs, evaluated patient, discussed findings, probable treatment with patient. They feel the workup has been complete to the best of our ability today, they do not feel they can do the patient much good by admitting patient at this time, feel his hypoxia is due to underlying chronic lung disease and that he should go home on oxygen which is what patient and family want to do. Have arranged for home oxygen. Discharge instr. as documented. Departure - Departure Time of Disposition: 15:00 Disposition: Refer to Observation Condition: Fair Clinical Impression: Hypoxia, Pulmonary fibrosis COPD (chronic obstructive pulmonary disease) Qualifiers: COPD type: unspecified COPD Qualified Code(s): J44.9 - Chronic obstructive pulmonary disease, unspecified - Discharge Information Instructions: Hypoxia Referrals: Maurice Liz MD [Primary Care Provider] - Forms: ED Department Discharge Additional Instructions: Continue current medications as prescribed, home oxygen at 2 liters nasal canula at all times. See Dr Liz either later this week or early next week , call clinic for appt., return to ED as needed if symptoms worsening in any way. - My Orders Last 24 Hours: My Active Orders 10/02/18 08:35 Oxygen Therapy [RC] ASDIRECTED 10/02/18 08:45 RT Aerosol Therapy [RC] ASDIRECTED 10/02/18 10:40 EKG 12 Lead [EKG Documentation Completion] [RC] STAT - Assessment/Plan Last 24 Hours: My Active Orders 10/02/18 08:35 Oxygen Therapy [RC] ASDIRECTED 10/02/18 08:45 RT Aerosol Therapy [RC] ASDIRECTED 10/02/18 10:40 EKG 12 Lead [EKG Documentation Completion] [RC] STAT
[2018-10-02] MEDS ORDERED: Albuterol/Ipratropium 3.0-0.5 MG/3 ML Neb Soln NEB ONE (08:45)
--- NOTE | 2018-10-02 09:02 | CR ---
Chest: Portable view of the chest was obtained. Comparison: Prior chest x-ray of 07/01/18. Slight atelectasis is seen within both lungs which appear stable. Lungs otherwise are clear with no acute parenchymal change. Heart size is normal. Ectatic or aneurysmal aorta appears stable from previous exam. Bony structures are grossly intact. Impression: 1. Findings as noted above. No significant change from previous study is seen. Diagnostic code #2
[2018-10-02] MEDS ORDERED: Furosemide 40 MG Tab PO ONE (09:03)
--- NOTE | 2018-10-02 14:57 | NM ---
Ventilation/perfusion lung scan Technique: 2.0 mCi of technetium 99m MAA was given intravenously. Scintigraphic imaging then obtained over the lungs. 40 mCi of technetium 99m DTPA was then aerosolized and patient inhaled the mixture. Continued scintigraphic imaging was performed. Comparison: No prior perfusion lung imaging. Findings: Slight patchiness of activity is seen which appears similar between the ventilation and perfusion exams. No mismatch defects are seen. Impression: 1. Findings which are felt compatible with low probability for pulmonary embolism. Diagnostic code #2
[2018-10-02 17:01] VITALS: BP 146/71
--- NOTE | 2018-10-02 17:31 | PCM.CONS ---
H&P History of Present Illness - General Date of Service: 10/02/18 Admit Problem/Dx: Hypoxia Source of Information: Patient, Family - History of Present Illness Initial Comments - Free Text/Narative: I was called in consultation by the emergency department secondary to the patient's hypoxia. Patient went to the emergency room this morning secondary to dysuria and decreased urinary flow. Patient has a long history of dysuria for at least a year and a half. He states it does come and go. 2 weeks ago at his annual physical his primary care provider did place him on [id number] Azo. Patient is only taking approximately 1 time per day. He does have a history of prostate cancer with cesium seed implants. Last PSA is reported as less than 0.01. He continues Lupron injections. He is followed closely with urology. On evaluation in the emergency room for the above complaint patient was found to be hypoxic with oxygen level of 84% on room air. A subsequent workup found a d-dimer of 0.99 and a low probability VQ scan. Reviewing of his old chart, when the patient was in the emergency room in June, patient also had a slightly low pulse ox of 88%. There is note of him having pulmonary fibrosis in that emergency room note. 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 Today's chest x-ray showed slight atelectasis within both lungs which appear stable. I could not find any CT imaging of the chest on our old records. Patient also denies orthopnea, PND, shortness of breath, cough, wheeze, respiratory difficulties, chest pain, palpitations, or any cardiopulmonary symptoms. He does have chronic lower extremity edema that has been present for years. Patient states he has no respiratory symptoms and breathing is fine. - Related Data Allergies/Adverse Reactions: Allergies Allergy/AdvReac Type Severity Reaction Status Date / Time No Known Allergies Allergy Verified 10/02/18 08:01 Home Medications: Home Meds Bicalutamide [Casodex] 50 mg PO DAILY 06/08/14 [History] Doxazosin [Cardura] 2 mg PO DAILY 06/08/14 [History] Quinapril [Accupril] 40 mg PO DAILY 06/08/14 [History] Fish Oil/Pala-3 Fatty Acids [Fish Oil 1,000 MG] 0 mg PO DAILY 10/02/18 [History ] Furosemide [Lasix] 40 mg PO DAILY 10/02/18 [History] Multivitamin [Multivitamins] 1 cap PO DAILY 10/02/18 [History] NIFEdipine [Nifedipine ER] 60 mg PO DAILY 10/02/18 [History] Phenazopyridine HCl [Azo Urinary Pain Relief] 0 mg PO DAILY 10/02/18 [History] Rosuvastatin [Crestor] 0 mg PO BEDTIME 10/02/18 [History] Temazepam [Restoril] 15 mg PO BEDTIME 10/02/18 [History] Ubidecarenone [COQ-10] 0 mg PO DAILY 10/02/18 [History] Past Medical History HEENT History: Reports: Cataract Cardiovascular History: Reports: High Cholesterol, Hypertension Respiratory History: Reports: Pulmonary Fibrosis Gastrointestinal History: Reports: Chronic Constipation Genitourinary History: Reports: Prostate Disorder, Other (See Below) Other Genitourinary History: void issues Musculoskeletal History: Reports: Fracture Oncologic (Cancer) History: Reports: Prostate Social & Family History - Tobacco Use Smoking Status *Q: Never Smoker Second Hand Smoke Exposure: No - Caffeine Use Caffeine Use: Reports: None - Recreational Drug Use Recreational Drug Use: No - Living Situation & Occupation Living situation: Reports: Occupation: Retired H&P Review of Systems - Review of Systems: Review Of Systems: See Below General: Reports: No Symptoms. Denies: Fever, Chills HEENT: Reports: No Symptoms Pulmonary: Reports: No Symptoms. Denies: Shortness of Breath, Wheezing, Cough, Sputum Cardiovascular: Reports: Edema. Denies: Chest Pain, Palpitations, Dyspnea on Exertion, Orthopnea, PND, Lightheadedness Gastrointestinal: Reports: No Symptoms. Denies: Abdominal Pain, Black Stool, Bloody Stool Genitourinary: Reports: Dysuria, Frequency Musculoskeletal: Denies: Back Pain, Leg Pain Psychiatric: Denies: Confusion, Depression Neurological: Denies: Headache, Paresthesia Exam - Exam Exam: See Below - Vital Signs Vital Signs: Last Vital Signs Temp 98.3 F 10/02/18 16:45 Pulse 66 10/02/18 16:45 Resp 18 10/02/18 16:45 BP 146/71 H 10/02/18 16:45 Pulse Ox 96 10/02/18 16:45 Weight: 215 lb - Exam Quality Assessment: Supplemental Oxygen General: Alert, Oriented, Cooperative. No: Mild Distress HEENT: Conjunctiva Clear, Mucosa Moist & [place] Neck: Supple, Trachea Midline Lungs: Normal Respiratory Effort, Crackles (Mild scattered crackles) Cardiovascular: Regular Rate, Regular Rhythm GI/Abdominal Exam: Normal Bowel Sounds, Soft, Non-Tender, No Organomegaly, No Distention Back Exam: Normal Inspection Extremities: Normal Inspection, Normal Range of Motion, Non-Tender, Pedal Edema Skin: Warm, Dry, Intact Neuro Extensive - Mental Status: Alert, Oriented x3, Normal Mood/Affect, Normal Cognition, Memory Intact Psychiatric: Alert, Normal Affect, Normal Mood - Patient Data Lab Results Last 24 hrs: Laboratory Results - last 24 hr 10/02/18 10/02/18 10/02/18 Range/Units 08:52 08:52 08:52 WBC 6.31 (4.23-9.07) K/mm3 RBC 4.72 (4.63-6.08) M/mm3 Hgb 14.5 (13.7-17.5) gm/L Hct 45.3 (40.1-51.0) % MCV 96.0 H (79.0-92.2) fl MCH 30.7 (25.7-32.2) pg MCHC 32.0 L (32.2-35.5) g/dl RDW Std Deviation 44.5 H (35.1-43.9) fL Plt Count 169 (163-337) K/mm3 MPV 9.8 (9.4-12.3) fl Neut % (Auto) 75.0 H (34.0-67.9) % Lymph % (Auto) 17.0 L (21.8-53.1) % [place] % (Auto) 7.0 (5.3-12.2) % Eos % (Auto) 0.6 L (0.8-7.0) Baso % (Auto) 0.2 (0.1-1.2) % Neut # (Auto) 4.74 (1.78-5.38) K/mm3 Lymph # (Auto) 1.07 L (1.32-3.57) K/mm3 [place] # (Auto) 0.44 (0.30-0.82) K/mm3 Eos # (Auto) 0.04 (0.04-0.54) K/mm3 Baso # (Auto) 0.01 (0.01-0.08) K/mm3 D-Dimer, Quantitative (0.19-0.50) mg/L Puncture Site ABG pH (7.35-7.45) ABG pCO2 (35.0-45.0) mmHg ABG pO2 (80.0-100.0) mmHg ABG HCO3 (22.0-26.0) meq/L ABG O2 Saturation (96.0-97.0) % ABG Base Excess (-2-2.0) Edson Test A-a Gradient mmHg O2 Delivery Device Oxygen Flow Rate FiO2 (21.00-100.00) % Sodium 144 (136-145) mEq/L Potassium 4.7 (3.5-5.1) mEq/L Chloride 105 (98-107) mEq/L Carbon Dioxide 35 H (21-32) mEq/L Anion Gap 8.7 (5-15) BUN 35 H (7-18) mg/dL Creatinine 1.7 H (0.7-1.3) mg/dL Est Cr Clr Drug Dosing 33.94 mL/min Estimated GFR (MDRD) 38 (>60) mL/min BUN/Creatinine Ratio 20.6 H (14-18) Glucose 176 H (83-115) mg/dL Calcium 9.5 (8.5-10.1) mg/dL Total Bilirubin 0.5 (0.2-1.0) mg/dL AST 20 (15-37) U/L ALT 25 (16-63) U/L Alkaline Phosphatase 65 (46-116) U/L Troponin I (0.00-0.056) ng/mL NT-Pro-B Natriuret Pep 126 (0-450) pg/mL Total Protein 7.4 (6.4-8.2) g/dl Albumin 3.8 (3.4-5.0) g/dl Globulin 3.6 gm/dL Albumin/Globulin Ratio 1.1 (1-2) Urine Color Urine Appearance Urine pH Ur Specific [place] Urine Protein Urine Glucose (UA) Urine Ketones Urine Occult Blood Urine Nitrite Urine Bilirubin Urine Urobilinogen Ur Leukocyte Esterase Urine RBC Urine WBC Urine WBC Clumps Ur Epithelial Cells Ur Squamous Epith Cells Ur Transition Epith Cell Ur Renal Epithelial Cell Electra Biurate Crystals Calcium Carbonate Cryst Calcium Phosphate Cryst Calcium Oxalate Crystal Leucine Crystals Cystine Crystals Uric Acid Crystals Triple Phos Crystals Sodium Urate Crystals Tyrosine Crystals Other Crystals Amorphous Sediment Urine Bacteria Epithelial Casts Fatty Casts Hyaline Casts Fine Granular Casts Coarse Granular Casts Waxy Casts Broad Casts RBC Casts WBC Casts Urine Mucus Urine Other Urine Trichomonas Urine Yeast Ur Yeast w Hyphae Urine Yeast (Budding) Ur Oval Fat Bodies Urinalysis Comment 10/02/18 10/02/18 10/02/18 Range/Units 08:52 08:52 09:30 WBC (4.23-9.07) K/mm3 RBC (4.63-6.08) M/mm3 Hgb (13.7-17.5) gm/L Hct (40.1-51.0) % MCV (79.0-92.2) fl MCH (25.7-32.2) pg MCHC (32.2-35.5) g/dl RDW Std Deviation (35.1-43.9) fL Plt Count (163-337) K/mm3 MPV (9.4-12.3) fl Neut % (Auto) (34.0-67.9) % Lymph % (Auto) (21.8-53.1) % [place] % (Auto) (5.3-12.2) % Eos % (Auto) (0.8-7.0) Baso % (Auto) (0.1-1.2) % Neut # (Auto) (1.78-5.38) K/mm3 Lymph # (Auto) (1.32-3.57) K/mm3 [place] # (Auto) (0.30-0.82) K/mm3 Eos # (Auto) (0.04-0.54) K/mm3 Baso # (Auto) (0.01-0.08) K/mm3 D-Dimer, Quantitative 0.99 H (0.19-0.50) mg/L Puncture Site ABG pH (7.35-7.45) ABG pCO2 (35.0-45.0) mmHg ABG pO2 (80.0-100.0) mmHg ABG HCO3 (22.0-26.0) meq/L ABG O2 Saturation (96.0-97.0) % ABG Base Excess (-2-2.0) Edson Test A-a Gradient mmHg O2 Delivery Device Oxygen Flow Rate FiO2 (21.00-100.00) % Sodium (136-145) mEq/L Potassium (3.5-5.1) mEq/L Chloride (98-107) mEq/L Carbon Dioxide (21-32) mEq/L Anion Gap (5-15) BUN (7-18) mg/dL Creatinine (0.7-1.3) mg/dL Est Cr Clr Drug Dosing mL/min Estimated GFR (MDRD) (>60) mL/min BUN/Creatinine Ratio (14-18) Glucose (83-115) mg/dL Calcium (8.5-10.1) mg/dL Total Bilirubin (0.2-1.0) mg/dL AST (15-37) U/L ALT (16-63) U/L Alkaline Phosphatase (46-116) U/L Troponin I < 0.017 (0.00-0.056) ng/mL NT-Pro-B Natriuret Pep (0-450) pg/mL Total Protein (6.4-8.2) g/dl Albumin (3.4-5.0) g/dl Globulin gm/dL Albumin/Globulin Ratio (1-2) Urine Color Cancelled Urine Appearance Cancelled Urine pH Cancelled Ur Specific [place] Cancelled Urine Protein Cancelled Urine Glucose (UA) Cancelled Urine Ketones Cancelled Urine Occult Blood Cancelled Urine Nitrite Cancelled Urine Bilirubin Cancelled Urine Urobilinogen Cancelled Ur Leukocyte Esterase Cancelled Urine RBC Cancelled Urine WBC Cancelled Urine WBC Clumps Cancelled Ur Epithelial Cells Cancelled Ur Squamous Epith Cells Cancelled Ur Transition Epith Cell Cancelled Ur Renal Epithelial Cell Cancelled Zach Biurate Crystals Cancelled Calcium Carbonate Cryst Cancelled Calcium Phosphate Cryst Cancelled Calcium Oxalate Crystal Cancelled Leucine Crystals Cancelled Cystine Crystals Cancelled Uric Acid Crystals Cancelled Triple Phos Crystals Cancelled Sodium Urate Crystals Cancelled Tyrosine Crystals Cancelled Other Crystals Cancelled Amorphous Sediment Cancelled Urine Bacteria Cancelled Epithelial Casts Cancelled Fatty Casts Cancelled Hyaline Casts Cancelled Fine Granular Casts Cancelled Coarse Granular Casts Cancelled Waxy Casts Cancelled Broad Casts Cancelled RBC Casts Cancelled WBC Casts Cancelled Urine Mucus Cancelled Urine Other Cancelled Urine Trichomonas Cancelled Urine Yeast Cancelled Ur Yeast w Hyphae Cancelled Urine Yeast (Budding) Cancelled Ur Oval Fat Bodies Cancelled Urinalysis Comment Cancelled 10/02/18 10/02/18 10/02/18 Range/Units 09:30 10:10 16:19 WBC (4.23-9.07) K/mm3 RBC (4.63-6.08) M/mm3 Hgb (13.7-17.5) gm/L Hct (40.1-51.0) % MCV (79.0-92.2) fl MCH (25.7-32.2) pg MCHC (32.2-35.5) g/dl RDW Std Deviation (35.1-43.9) fL Plt Count (163-337) K/mm3 MPV (9.4-12.3) fl Neut % (Auto) (34.0-67.9) % Lymph % (Auto) (21.8-53.1) % [place] % (Auto) (5.3-12.2) % Eos % (Auto) (0.8-7.0) Baso % (Auto) (0.1-1.2) % Neut # (Auto) (1.78-5.38) K/mm3 Lymph # (Auto) (1.32-3.57) K/mm3 [place] # (Auto) (0.30-0.82) K/mm3 Eos # (Auto) (0.04-0.54) K/mm3 Baso # (Auto) (0.01-0.08) K/mm3 D-Dimer, Quantitative (0.19-0.50) mg/L Puncture Site Lt radial Lt radial ABG pH 7.38 7.40 (7.35-7.45) ABG pCO2 60.4 H 57.7 H (35.0-45.0) mmHg ABG pO2 46.0 L 59.0 L (80.0-100.0) mmHg ABG HCO3 35.1 H 34.6 H (22.0-26.0) meq/L ABG O2 Saturation 76.5 L 87.6 L (96.0-97.0) % ABG Base Excess 8.2 H 8.2 H (-2-2.0) Edson Test Positive Positive A-a Gradient 13 48 mmHg O2 Delivery Device Room air Nasal cannula Oxygen Flow Rate 2.0 FiO2 21.00 28.00 (21.00-100.00) % Sodium (136-145) mEq/L Potassium (3.5-5.1) mEq/L Chloride (98-107) mEq/L Carbon Dioxide (21-32) mEq/L Anion Gap (5-15) BUN (7-18) mg/dL Creatinine (0.7-1.3) mg/dL Est Cr Clr Drug Dosing mL/min Estimated GFR (MDRD) (>60) mL/min BUN/Creatinine Ratio (14-18) Glucose (83-115) mg/dL Calcium (8.5-10.1) mg/dL Total Bilirubin (0.2-1.0) mg/dL AST (15-37) U/L ALT (16-63) U/L Alkaline Phosphatase (46-116) U/L Troponin I (0.00-0.056) ng/mL NT-Pro-B Natriuret Pep (0-450) pg/mL Total Protein (6.4-8.2) g/dl Albumin (3.4-5.0) g/dl Globulin gm/dL Albumin/Globulin Ratio (1-2) Urine Color Y Urine Appearance Clear Urine pH 6.0 Ur Specific [place] 1.015 Urine Protein 1+ H Urine Glucose (UA) Negative Urine Ketones Negative Urine Occult Blood Negative Urine Nitrite Positive H Urine Bilirubin Negative Urine Urobilinogen 0.2 Ur Leukocyte Esterase Negative Urine RBC 0-5 Urine WBC Not seen Urine WBC Clumps Ur Epithelial Cells 0-5 Ur Squamous Epith Cells Ur Transition Epith Cell Ur Renal Epithelial Cell Electra Biurate Crystals Calcium Carbonate Cryst Calcium Phosphate Cryst Calcium Oxalate Crystal Leucine Crystals Cystine Crystals Uric Acid Crystals Triple Phos Crystals Sodium Urate Crystals Tyrosine Crystals Other Crystals Amorphous Sediment Urine Bacteria Few Epithelial Casts Fatty Casts Hyaline Casts Fine Granular Casts Coarse Granular Casts Waxy Casts Broad Casts RBC Casts WBC Casts Urine Mucus Rare H Urine Other Urine Trichomonas Urine Yeast Ur Yeast w Hyphae Urine Yeast (Budding) Ur Oval Fat Bodies Urinalysis Comment Result Diagrams: 10/02/18 08:52 10/02/18 08:52 Consult PN Assessment/Plan Procedures: Procedures ASSAY OF MAGNESIUM (07/01/18) ASSAY OF NATRIURETIC PEPTIDE (07/01/18) ASSAY OF TROPONIN QUANT (07/01/18) BL SMEAR W/DIFF WBC COUNT (07/01/18) BLOOD CULTURE FOR BACTERIA (07/01/18) C-REACTIVE PROTEIN (07/01/18) CARDIOVASCULAR STRESS TEST (03/28/17) COMPLETE CBC AUTOMATED (07/01/18) COMPREHEN METABOLIC PANEL (07/01/18) CREATINE MB FRACTION (07/01/18) ELECTROCARDIOGRAM TRACING (07/01/18) EMERGENCY DEPT VISIT (07/01/18) EMERGENCY DEPT VISIT (01/02/16) EMERGENCY DEPT VISIT (06/08/14) EXTREMITY STUDY (06/08/14) HT MUSCLE IMAGE SPECT MULT (03/28/17) MRI LUMBAR SPINE W/O DYE (04/26/18) PROTHROMBIN TIME (07/01/18) ROUTINE VENIPUNCTURE (07/01/18) THER/PROPH/DIAG IV INF INIT (07/01/18) TX/PRO/DX INJ NEW DRUG ADDON (07/01/18) URINALYSIS AUTO W/SCOPE (07/01/18) URINE CULTURE/COLONY COUNT (07/01/18) US URINE CAPACITY MEASURE (07/01/18) X-RAY EXAM CHEST 1 VIEW (07/01/18) X-RAY EXAM OF ABDOMEN (01/02/16) X-RAY EXAM OF ELBOW (07/08/15) X-RAY EXAM OF KNEE 3 (11/13/13) (1) Hypoxia SNOMED Code(s): 340615279 Code(s): R09.02 - HYPOXEMIA Problem List Initiated/Reviewed/Updated: Yes Plan: Patient's hypoxia appears to be a chronic issue that has slowly worsened. I see nothing acute that we could do to correct his hypoxia. Patient does very little , sits in his wheelchair and is a 1 person assist, therefore he would unlikely noticed the slow and persistent decline in his oxygenation. I offered them admission to the hospital on observation status for further evaluation to include a noncontrast CT and echocardiogram. Patient asked if this could be done on an outpatient basis. Patient wished to go home on oxygen. I see no harm at this time for him going home. We have ruled out pneumonia and pulmonary embolism. It is unlikely that this is secondary to her cardiac condition. This is likely to be a worsening of his underlying pulmonary fibrosis. I would like a CT to better characterize that. I discussed the findings and treatment with him, his , and his daughter. They were all in agreement of going home and following up with her primary care provider.
== END 2018-10-02 16:45 | disposition other institution (70) ==
LOC: JD.ED 07:50
DX: J84.10 Pulmonary fibrosis, unspecified (principal); J44.9 Chronic obstructive pulmonary disease, unspecified; R09.02 Hypoxemia; E78.00 Pure hypercholesterolemia, unspecified; I10 Essential (primary) hypertension; Z79.899 Other long term (current) drug therapy
CPT/HCPCS: 36415; 36600; 71045; 78582; 80053; 81001; 82803; 83880; 84484; 85025; 85379; 93005; 94640; 99284; A9270; A9540; 93010; J7620-GY

== ENCOUNTER 2018-10-20 07:20 | Inpatient (IN) | payer MEDICARE, BC ==
[2018-10-20] MEDS ORDERED: Ondansetron 4 MG/2 ML SDV IVPUSH ONE (07:47)
--- NOTE | 2018-10-20 07:55 | EDM.PDOC ---
ED HPI GENERAL MEDICAL PROBLEM - General Chief Complaint: Gastrointestinal Problem Stated Complaint: [facility] Time Seen by Provider: 10/20/18 07:28 Source of Information: Reports: Patient, EMS, Family History Limitations: Reports: No Limitations - History of Present Illness INITIAL COMMENTS - FREE TEXT/NARRATIVE: The patient presents from [facility] by EMS for diarrhea, generalized weakness, shoulder and neck pain. He went to bed feeling fine. He even had company last night and they visited and he felt well. He had to use the restroom this morning at 2am and he has lots of diarrhea. He had more episodes. He does not feel nauseated and he has no abdominal pain now. He is very weak and cannot get up and walk around. He also said early this morning he had some shoulder and neck pain. He says this is gone now but earlier it was severe. He has no chest pain. 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 That was just started earlier in the week. He denies fever but he has chills. His was sick last week. He does not think he ate any bad food. He did not have antibiotics recently. Onset: Sudden Duration: Hour(s): (2am) Location: Reports: Neck, Upper Extremity, Left, Upper Extremity, Right Quality: Reports: Sharp Severity: Moderate Improves with: Reports: None Worsens with: Reports: None Associated Symptoms: Reports: Fever/Chills, Shortness of Breath. Denies: Chest Pain, Cough, Headaches, Nausea/Vomiting - Related Data Allergies Allergy/AdvReac Type Severity Reaction Status Date / Time No Known Allergies Allergy Verified 10/20/18 07:29 Home Meds: Home Meds Bicalutamide [Casodex] 50 mg PO DAILY 06/08/14 [History] Doxazosin [Cardura] 2 mg PO DAILY 06/08/14 [History] Quinapril [Accupril] 40 mg PO DAILY 06/08/14 [History] Fish Oil/[place]-3 Fatty Acids [Fish Oil 1,000 MG] 0 mg PO DAILY 10/02/18 [History ] Furosemide [Lasix] 40 mg PO DAILY 10/02/18 [History] Multivitamin [Multivitamins] 1 cap PO DAILY 10/02/18 [History] NIFEdipine [Nifedipine ER] 60 mg PO DAILY 10/02/18 [History] Phenazopyridine HCl [Azo Urinary Pain Relief] 0 mg PO DAILY 10/02/18 [History] Rosuvastatin [Crestor] 0 mg PO BEDTIME 10/02/18 [History] Temazepam [Restoril] 15 mg PO BEDTIME 10/02/18 [History] Ubidecarenone [COQ-10] 0 mg PO DAILY 10/02/18 [History] Past Medical History HEENT History: Reports: Cataract Cardiovascular History: Reports: High Cholesterol, Hypertension Respiratory History: Reports: Pulmonary Fibrosis Gastrointestinal History: Reports: Chronic Constipation Genitourinary History: Reports: Prostate Disorder, Other (See Below) Other Genitourinary History: void issues Musculoskeletal History: Reports: Fracture Oncologic (Cancer) History: Reports: Prostate Social & Family History - Tobacco Use Smoking Status *Q: Never Smoker - Caffeine Use Caffeine Use: Reports: Coffee, Soda - Recreational Drug Use Recreational Drug Use: No - Living Situation & Occupation Living situation: Reports: Occupation: Retired ED ROS GENERAL - Review of Systems Review Of Systems: See Below Constitutional: Reports: Chills. Denies: Fever HEENT: Reports: No Symptoms Respiratory: Reports: Shortness of Breath. Denies: Cough Cardiovascular: Reports: No Symptoms Endocrine: Reports: No Symptoms GI/Abdominal: Reports: Diarrhea. Denies: Abdominal Pain, Nausea, Vomiting : Reports: No Symptoms Musculoskeletal: Reports: Neck Pain, Shoulder Pain (bilateral) ED EXAM, GI/ABD - Physical Exam Exam: See Below Exam Limited By: No Limitations General Appearance: Alert, No Apparent Distress Ears: Normal External Exam Nose: Normal Inspection Head: Atraumatic, Normocephalic Neck: Normal Inspection, Supple, Non-Tender Respiratory/Chest: No Respiratory Distress, Decreased Breath Sounds Cardiovascular: Regular Rate, Rhythm, No Edema, No Murmur GI/Abdominal Exam: Soft, Non-Tender, No Organomegaly, No Mass Extremities: Normal Inspection, Non-Tender Neurological: Alert, Oriented, No Motor/Sensory Deficits Course - Vital Signs Last Recorded V/S: Last Vital Signs Temp 98.8 F 10/20/18 07:24 Pulse 99 10/20/18 07:24 Resp 18 10/20/18 07:24 BP 139/62 10/20/18 07:24 Pulse Ox 84 L 10/20/18 07:24 - Orders/Labs/Meds Orders: Active Orders 24 hr Category Date Time Status Cardiac Monitoring [RC] . DIRECTED Care 10/20/18 07:47 Active EKG Documentation Completion [RC] STAT Care 10/20/18 07:47 Active Meza Catheter Insertion [Insert Urinary Catheter] [OM. Care 10/20/18 09:15 Ordered PC] Q24H Oxygen Therapy [RC] PRN Care 10/20/18 07:47 Active Peripheral IV Care [RC] . DIRECTED Care 10/20/18 07:47 Active Urinary Catheter Assessment [RC] ASDIRECTED Care 10/20/18 09:17 Active Chest 1V Frontal [CR] Stat Exams 10/20/18 07:48 Taken Sodium Chloride 0.9% [Normal Saline] 1,000 ml Med 10/20/18 08:00 Active IV .BOLUS Sodium Chloride 0.9% [Normal Saline] 1,000 ml Med 10/20/18 08:45 Active IV ASDIRECTED Sodium Chloride 0.9% [Saline Flush] Med 10/20/18 07:47 Active 10 ml FLUSH ASDIRECTED PRN ED Antiemetic Medication Reflex [OM.PC] Stat Oth 10/20/18 07:47 Ordered Peripheral IV Insertion Adult [OM.PC] Stat Oth 10/20/18 07:47 Ordered Medication Orders Sodium Chloride (Normal Saline) 1,000 mls @ 1,000 mls/hr IV .BOLUS MILADYS Last Admin: 10/20/18 07:59 Dose: 1,000 mls/hr Sodium Chloride (Normal Saline) 1,000 mls @ 100 mls/hr IV ASDIRECTED MILADYS Last Admin: 10/20/18 09:02 Dose: 100 mls/hr Sodium Chloride (Saline Flush) 10 ml FLUSH ASDIRECTED PRN PRN Reason: Keep Vein Open Last Admin: 10/20/18 07:59 Dose: 10 ml Labs: Laboratory Tests 10/20/18 10/20/18 10/20/18 Range/Units 08:15 08:15 09:14 WBC 12.33 H (4.23-9.07) K/mm3 RBC 4.45 L (4.63-6.08) M/mm3 Hgb 13.6 L (13.7-17.5) gm/L Hct 42.5 (40.1-51.0) % MCV 95.5 H (79.0-92.2) fl MCH 30.6 (25.7-32.2) pg MCHC 32.0 L (32.2-35.5) g/dl RDW Std Deviation 43.4 (35.1-43.9) fL Plt Count 129 L (163-337) K/mm3 MPV 10.1 (9.4-12.3) fl Neut % (Auto) 93.7 H (34.0-67.9) % Lymph % (Auto) 1.8 L (21.8-53.1) % [place] % (Auto) 4.1 L (5.3-12.2) % Eos % (Auto) 0.2 L (0.8-7.0) Baso % (Auto) 0.1 (0.1-1.2) % Neut # (Auto) 11.56 H (1.78-5.38) K/mm3 Lymph # (Auto) 0.22 L (1.32-3.57) K/mm3 [place] # (Auto) 0.51 (0.30-0.82) K/mm3 Eos # (Auto) 0.02 L (0.04-0.54) K/mm3 Baso # (Auto) 0.01 (0.01-0.08) K/mm3 Manual Slide Review Abnormal smear Sodium 145 (136-145) mEq/L Potassium 4.1 (3.5-5.1) mEq/L Chloride 107 (98-107) mEq/L Carbon Dioxide 29 (21-32) mEq/L Anion Gap 13.1 (5-15) BUN 41 H (7-18) mg/dL Creatinine 1.9 H (0.7-1.3) mg/dL Est Cr Clr Drug Dosing 30.37 mL/min Estimated GFR (MDRD) 34 (>60) mL/min BUN/Creatinine Ratio 21.6 H (14-18) Glucose 206 H (83-115) mg/dL Calcium 9.1 (8.5-10.1) mg/dL Total Bilirubin 0.7 (0.2-1.0) mg/dL AST 20 (15-37) U/L ALT 29 (16-63) U/L Alkaline Phosphatase 61 (46-116) U/L Troponin I 0.035 (0.00-0.056) ng/mL Total Protein 6.7 (6.4-8.2) g/dl Albumin 3.3 L (3.4-5.0) g/dl Globulin 3.4 gm/dL Albumin/Globulin Ratio 1.0 (1-2) Lipase 71 L (73-393) U/L Urine Color Yellow (Yellow) Urine Appearance Slt cloudy H (Clear) Urine pH 5.0 (5.0-8.0) Ur Specific [place] 1.025 (1.005-1.030) Urine Protein 2+ H (Negative) Urine Glucose (UA) Negative (Negative) Urine Ketones Trace H (Negative) Urine Occult Blood Trace-lysed H (Negative) Urine Nitrite Negative (Negative) Urine Bilirubin 1+ H (Negative) Urine Urobilinogen 0.2 (0.2-1.0) Ur Leukocyte Esterase Negative (Negative) Urine RBC 10-20 H (0-5) /hpf Urine WBC 0-5 (0-5) /hpf Ur Epithelial Cells 0-5 (0-5) /hpf Amorphous Sediment Moderate H (NOT SEEN) /hpf Urine Bacteria Few H (FEW) /hpf Hyaline Casts 0-5 (0-5) /lpf Urine Mucus Few (FEW) /hpf Meds: Medications Generic Name Dose Route Start Last Admin Trade Name Freq PRN Reason Stop Dose Admin Sodium Chloride 1,000 mls @ 1,000 mls/hr 10/20/18 08:00 10/20/18 07:59 Normal Saline IV 1,000 mls/hr .BOLUS MILADYS Administration Sodium Chloride 1,000 mls @ 100 mls/hr 10/20/18 08:45 10/20/18 09:02 Normal Saline IV 100 mls/hr ASDIRECTED MILADYS Administration Sodium Chloride 10 ml 10/20/18 07:47 10/20/18 07:59 Saline Flush FLUSH 10 ml ASDIRECTED PRN Administration Keep Vein Open Discontinued Medications Generic Name Dose Route Start Last Admin Trade Name Freq PRN Reason Stop Dose Admin Ondansetron HCl 4 mg 10/20/18 07:47 10/20/18 07:59 Zofran IVPUSH 10/20/18 07:48 4 mg ONETIME ONE Administration - Re-Assessments/Exams Free Text/Narrative Re-Assessment/Exam: 10/20/18 07:57 I ordered an IV NS 1L bolus, zofran 4mg IV, labs, EKG, CXR and UA. 10/20/18 09:48 His EKG shows a NSR with Q waves in the anterior leads. His CXR shows no infiltrates. His WBC was elevated at 12.33. His Hgb was 13.6. His platelets are low at 129. His creatinine was elevated at 1.9. His GFR was 34. His glucose is elevated at 206. His troponin is negative. His lipase is low at 71. His UA is negative for UTI but there is blood. 10/20/18 10:25 He still has generalized weakness. I do not think he can go home like this. I called Dr Farrell and he agreed to the admission. He will need to be observation at this time. Departure - Departure Time of Disposition: 10:30 Disposition: Refer to Observation Condition: Fair Clinical Impression: Diarrhea, Niland' lung, Dehydration, Renal insufficiency, Generalized weakness - Discharge Information Referrals: Maurice Liz MD [Primary Care Provider] - Forms: ED Department Discharge - My Orders Last 24 Hours: My Active Orders 10/20/18 07:47 Cardiac Monitoring [RC] . DIRECTED EKG Documentation Completion [RC] STAT Oxygen Therapy [RC] PRN Peripheral IV Care [RC] . DIRECTED Sodium Chloride 0.9% [Saline Flush] 10 ml FLUSH ASDIRECTED PRN ED Antiemetic Medication Reflex [OM.PC] Stat Peripheral IV Insertion Adult [OM.PC] Stat 10/20/18 07:48 Chest 1V Frontal [CR] Stat 10/20/18 08:00 Sodium Chloride 0.9% [Normal Saline] 1,000 ml IV .BOLUS 10/20/18 08:45 Sodium Chloride 0.9% [Normal Saline] 1,000 ml IV ASDIRECTED 10/20/18 09:15 Meza Catheter Insertion [Insert Urinary Catheter] [OM.PC] Q24H 10/20/18 09:17 Urinary Catheter Assessment [RC] ASDIRECTED - Assessment/Plan Last 24 Hours: My Active Orders 10/20/18 07:47 Cardiac Monitoring [RC] . DIRECTED EKG Documentation Completion [RC] STAT Oxygen Therapy [RC] PRN Peripheral IV Care [RC] . DIRECTED Sodium Chloride 0.9% [Saline Flush] 10 ml FLUSH ASDIRECTED PRN ED Antiemetic Medication Reflex [OM.PC] Stat Peripheral IV Insertion Adult [OM.PC] Stat 10/20/18 07:48 Chest 1V Frontal [CR] Stat 10/20/18 08:00 Sodium Chloride 0.9% [Normal Saline] 1,000 ml IV .BOLUS 10/20/18 08:45 Sodium Chloride 0.9% [Normal Saline] 1,000 ml IV ASDIRECTED 10/20/18 09:15 Meza Catheter Insertion [Insert Urinary Catheter] [OM.PC] Q24H 10/20/18 09:17 Urinary Catheter Assessment [RC] ASDIRECTED
[2018-10-20] MEDS: Sodium Chloride 0.9% 10 ML Syringe FLUSH PRN (07:59)
[2018-10-20] MEDS ORDERED: Sodium Chloride 0.9% 1,000 ML IV SCH (08:00)
[2018-10-20] MEDS: Sodium Chloride 0.9% 1,000 ML IV SCH ×2 (09:02→19:04)
[2018-10-20] MEDS ORDERED: Ondansetron 4 MG Tab.DIS PO PRN (12:29)
--- NOTE | 2018-10-20 16:18 | PCM.HP ---
H&P History of Present Illness - General Date of Service: 10/20/18 Admit Problem/Dx: Admission Diagnosis/Problem Admission Diagnosis/Problem Dehydration Source of Information: Patient, Provider - History of Present Illness Initial Comments - Free Text/Narative: Patient arrived at the emergency room via EMS secondary to generalized weakness , shoulder, and neck pain. Patient woke up this morning and had 2 large bowel movements became weak. Patient then developed bilateral shoulder pain and neck pain. Patient denies any nausea or vomiting. His had a similar episode of diarrhea, but she also had vomiting. Patient has recently been placed on oxygen secondary to former slowing. Patient denies any fever or chills. Denies any hematochezia or melena. Denies any recent antibiotics. Denies any hemoptysis. In the emergency room EKG showed normal sinus rhythm with Q waves in anterior leads. Chest x-ray showed no acute changes or infiltrates. White count was elevated at 12,000 and hemoglobin of 13.6. Platelets were slightly low at 129. Creatinine was elevated at 1.9 which is slightly elevated for him. UA had red blood cells were otherwise negative. Patient was placed in observation status because he was too weak for returning to home and was felt to hydrate him. Onset of Symptoms: Reports: Today, Sudden - Related Data Allergies/Adverse Reactions: Allergies Allergy/AdvReac Type Severity Reaction Status Date / Time No Known Allergies Allergy Verified 10/20/18 07:29 Home Medications: Home Meds Bicalutamide [Casodex] 50 mg PO DAILY 06/08/14 [History] Doxazosin [Cardura] 1 mg PO DAILY 06/08/14 [History] Quinapril [Accupril] 40 mg PO DAILY 06/08/14 [History] Fish Oil/[place]-3 Fatty Acids [Fish Oil 1,000 MG] 0 mg PO DAILY 10/02/18 [History ] Furosemide [Lasix] 40 mg PO DAILY 10/02/18 [History] Multivitamin [Multivitamins] 1 cap PO DAILY 10/02/18 [History] NIFEdipine [Nifedipine ER] 60 mg PO DAILY 10/02/18 [History] Phenazopyridine HCl [Azo Urinary Pain Relief] 0 mg PO DAILY PRN 10/02/18 [ History] Rosuvastatin [Crestor] 20 mg PO BEDTIME 10/02/18 [History] Temazepam [Restoril] 15 mg PO BEDTIME 10/02/18 [History] Loperamide [Imodium] 2 mg PO ASDIRECTED 10/20/18 [History] Ubidecarenone [Co Q-10] 400 mg PO DAILY 10/20/18 [History] Past Medical History HEENT History: Reports: Cataract Cardiovascular History: Reports: High Cholesterol, Hypertension Respiratory History: Reports: Pulmonary Fibrosis Gastrointestinal History: Reports: Chronic Constipation Genitourinary History: Reports: Prostate Disorder, Other (See Below) Other Genitourinary History: void issues Musculoskeletal History: Reports: Fracture Oncologic (Cancer) History: Reports: Prostate - Past Surgical History Cardiovascular Surgical History: Reports: None Respiratory Surgical History: Reports: None GI Surgical History: Reports: None Musculoskeletal Surgical History: Reports: None Oncologic Surgical History: Reports: None Social & Family History - Family History Family Medical History: Noncontributory - Tobacco Use Smoking Status *Q: Former Smoker Years of Tobacco use: 2 Packs/Tins Daily: 1 Used Tobacco, but Quit: No Month/Year Tobacco Last Used: 1949 Second Hand Smoke Exposure: No - Caffeine Use Caffeine Use: Reports: Coffee - Recreational Drug Use Recreational Drug Use: No - Living Situation & Occupation Living situation: Reports: Occupation: Retired H&P Review of Systems - Review of Systems: Review Of Systems: ROS reveals no pertinent complaints other than HPI. Exam - Exam Exam: See Below - Vital Signs Vital Signs: Last Vital Signs Temp 98.4 F 10/20/18 11:45 Pulse 77 10/20/18 11:45 Resp 22 H 10/20/18 11:45 BP 116/69 10/20/18 11:45 Pulse Ox 92 L 10/20/18 12:29 Weight: 219 lb - Exam Quality Assessment: Supplemental Oxygen General: Alert, Oriented HEENT: Conjunctiva Clear, EOMI, Mucosa Moist & [place], Posterior Pharynx Clear Neck: Supple, Trachea Midline Lungs: Clear to Auscultation, Normal Respiratory Effort Cardiovascular: Regular Rate, Regular Rhythm GI/Abdominal Exam: Normal Bowel Sounds, Soft, Non-Tender, No Organomegaly, No Distention Extremities: Normal Inspection, Normal Range of Motion, Non-Tender, No Pedal Edema, Normal Capillary Refill Skin: Warm, Dry, Intact Neuro Extensive - Mental Status: Alert, Oriented x3 Neuro Extensive - Motor, Sensory, Reflexes: CN II-XII Intact - Patient Data Lab Results Last 24 hrs: Laboratory Results - last 24 hr 10/20/18 10/20/18 10/20/18 Range/Units 08:15 08:15 09:14 WBC 12.33 H (4.23-9.07) K/mm3 RBC 4.45 L (4.63-6.08) M/mm3 Hgb 13.6 L (13.7-17.5) gm/L Hct 42.5 (40.1-51.0) % MCV 95.5 H (79.0-92.2) fl MCH 30.6 (25.7-32.2) pg MCHC 32.0 L (32.2-35.5) g/dl RDW Std Deviation 43.4 (35.1-43.9) fL Plt Count 129 L (163-337) K/mm3 MPV 10.1 (9.4-12.3) fl Neut % (Auto) 93.7 H (34.0-67.9) % Lymph % (Auto) 1.8 L (21.8-53.1) % [place] % (Auto) 4.1 L (5.3-12.2) % Eos % (Auto) 0.2 L (0.8-7.0) Baso % (Auto) 0.1 (0.1-1.2) % Neut # (Auto) 11.56 H (1.78-5.38) K/mm3 Lymph # (Auto) 0.22 L (1.32-3.57) K/mm3 [place] # (Auto) 0.51 (0.30-0.82) K/mm3 Eos # (Auto) 0.02 L (0.04-0.54) K/mm3 Baso # (Auto) 0.01 (0.01-0.08) K/mm3 Manual Slide Review Abnormal smear Sodium 145 (136-145) mEq/L Potassium 4.1 (3.5-5.1) mEq/L Chloride 107 (98-107) mEq/L Carbon Dioxide 29 (21-32) mEq/L Anion Gap 13.1 (5-15) BUN 41 H (7-18) mg/dL Creatinine 1.9 H (0.7-1.3) mg/dL Est Cr Clr Drug Dosing 30.37 mL/min Estimated GFR (MDRD) 34 (>60) mL/min BUN/Creatinine Ratio 21.6 H (14-18) Glucose 206 H (83-115) mg/dL Calcium 9.1 (8.5-10.1) mg/dL Total Bilirubin 0.7 (0.2-1.0) mg/dL AST 20 (15-37) U/L ALT 29 (16-63) U/L Alkaline Phosphatase 61 (46-116) U/L Troponin I 0.035 (0.00-0.056) ng/mL Total Protein 6.7 (6.4-8.2) g/dl Albumin 3.3 L (3.4-5.0) g/dl Globulin 3.4 gm/dL Albumin/Globulin Ratio 1.0 (1-2) Lipase 71 L (73-393) U/L Urine Color Yellow (Yellow) Urine Appearance Slt cloudy H (Clear) Urine pH 5.0 (5.0-8.0) Ur Specific [place] 1.025 (1.005-1.030) Urine Protein 2+ H (Negative) Urine Glucose (UA) Negative (Negative) Urine Ketones Trace H (Negative) Urine Occult Blood Trace-lysed H (Negative) Urine Nitrite Negative (Negative) Urine Bilirubin 1+ H (Negative) Urine Urobilinogen 0.2 (0.2-1.0) Ur Leukocyte Esterase Negative (Negative) Urine RBC 10-20 H (0-5) /hpf Urine WBC 0-5 (0-5) /hpf Ur Epithelial Cells 0-5 (0-5) /hpf Amorphous Sediment Moderate H (NOT SEEN) /hpf Urine Bacteria Few H (FEW) /hpf Hyaline Casts 0-5 (0-5) /lpf Urine Mucus Few (FEW) /hpf Result Diagrams: 10/20/18 08:15 10/20/18 08:15 - Problem List (1) Dehydration SNOMED Code(s): 69175379 ICD Code: E86.0 - DEHYDRATION Status: Acute Current Visit: Yes (2) Diarrhea SNOMED Code(s): 24361392 ICD Code: R19.7 - DIARRHEA, UNSPECIFIED Status: Acute Current Visit: Yes (3) [place]' lung SNOMED Code(s): 73226606 ICD Code: J67.0 - BONILLA'S LUNG Status: Acute Current Visit: Yes (4) Generalized weakness SNOMED Code(s): 57146441 ICD Code: R53.1 - WEAKNESS Status: Acute Current Visit: Yes (5) Renal insufficiency SNOMED Code(s): 910059562, 517937024 ICD Code: N28.9 - DISORDER OF KIDNEY AND URETER, UNSPECIFIED Status: Acute Current Visit: Yes Problem List Initiated/Reviewed/Updated: Yes Orders Last 24hrs: Active Orders 24 hr Category Date Time Status Patient Status [ADT] Routine ADT 10/20/18 11:02 Active Activity as Tolerated [RC] .Routine Care 10/20/18 15:24 Active Antiembolic Devices [RC] , Care 10/20/18 12:31 Active Bedrest Bathroom Privileges [RC] ASDIRECTED Care 10/20/18 12:29 Active Cardiac Monitoring [RC] . DIRECTED Care 10/20/18 07:47 Active Communication Order [RC] DAILY Care 10/20/18 15:47 Active EKG Documentation Completion [RC] STAT Care 10/20/18 07:47 Active Meza Catheter Insertion [Insert Urinary Catheter] [OM. Care 10/20/18 09:15 Ordered PC] Q24H Height and Weight [RC] 04 Care 10/20/18 12:29 Active Intake and Output [RC] QSHIFT Care 10/20/18 12:30 Active Oxygen Therapy [RC] PRN Care 10/20/18 07:47 Active Oxygen Therapy [RC] PRN Care 10/20/18 12:29 Active Up With Assistance [RC] ASDIRECTED Care 10/20/18 12:29 Active VTE/DVT Education [RC] Care 10/20/18 12:29 Active Vital Signs [RC] Q4HR Care 10/20/18 12:29 Active Consult to Occupational Therapy [OT Evaluation and Cons 10/20/18 12:20 Active Treatment] [CONS] Routine Consult to Physical Therapy [PT Evaluation and Cons 10/20/18 12:19 Active Treatment] [CONS] Routine Regular Diet [DIET] Diet 10/20/18 Lunch Active Chest 1V Frontal [CR] Stat Exams 10/20/18 07:48 Taken CBC WITH AUTO DIFF [HEME] AM Lab 10/21/18 05:11 Ordered COMPREHENSIVE METABOLIC PN,CMP [CHEM] AM Lab 10/21/18 05:11 Ordered MAGNESIUM [CHEM] AM Lab 10/21/18 05:11 Ordered Acetaminophen [Tylenol] Med 10/20/18 12:29 Active 650 mg PO Q4H PRN Doxazosin [Cardura] Med 10/20/18 21:00 Active 1 mg PO BEDTIME Furosemide [Lasix] Med 10/21/18 09:00 Active 40 mg PO DAILY Lisinopril [Prinivil] Med 10/20/18 21:00 Active 20 mg PO BEDTIME NIFEdipine [Procardia XL] Med 10/21/18 09:00 Active 60 mg PO DAILY Ondansetron [Zofran ODT] Med 10/20/18 12:29 Active 4 mg PO Q6H PRN Rosuvastatin [Crestor] Med 10/20/18 21:00 Active 20 mg PO BEDTIME Sodium Chloride 0.9% [Normal Saline] 1,000 ml Med 10/20/18 08:00 Active IV .BOLUS Sodium Chloride 0.9% [Normal Saline] 1,000 ml Med 10/20/18 08:45 Active IV ASDIRECTED Sodium Chloride 0.9% [Saline Flush] Med 10/20/18 07:47 Active 10 ml FLUSH ASDIRECTED PRN Temazepam [Restoril] Med 10/20/18 12:32 Active 15 mg PO BEDTIME PRN ED Antiemetic Medication Reflex [OM.PC] Stat Oth 10/20/18 07:47 Ordered Peripheral IV Insertion Adult [OM.PC] Stat Oth 10/20/18 07:47 Ordered Sequential Compression Device [OM.PC] Per Unit Routine Oth 10/20/18 12:30 Ordered Medication Orders Acetaminophen (Tylenol) 650 mg PO Q4H PRN PRN Reason: Pain (Mild 1-3)/fever Doxazosin Mesylate (Cardura) 1 mg PO BEDTIME MILADYS Furosemide (Lasix) 40 mg PO DAILY MILADYS Sodium Chloride (Normal Saline) 1,000 mls @ 1,000 mls/hr IV .BOLUS MILADYS Last Admin: 10/20/18 07:59 Dose: 1,000 mls/hr Sodium Chloride (Normal Saline) 1,000 mls @ 100 mls/hr IV ASDIRECTED MILADYS Last Admin: 10/20/18 09:02 Dose: 100 mls/hr Lisinopril (Prinivil) 20 mg PO BEDTIME MILADYS Nifedipine (Procardia Xl) 60 mg PO DAILY MILADYS Ondansetron HCl (Zofran Odt) 4 mg PO Q6H PRN PRN Reason: nausea, able to take PO Rosuvastatin Calcium (Crestor) 20 mg PO BEDTIME MILADYS Sodium Chloride (Saline Flush) 10 ml FLUSH ASDIRECTED PRN PRN Reason: Keep Vein Open Last Admin: 10/20/18 07:59 Dose: 10 ml Temazepam (Restoril) 15 mg PO BEDTIME PRN PRN Reason: Insomnia Assessment/Plan Comment:: Dehydration secondary to diarrhea Rehydrate patient with IV fluids. Check CMP, CBC, and mag in the morning. If all goes well plan discharge in the morning. 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 Acute on chronic renal insufficiency Cautiously rehydrate Recheck CMP in the morning. Discharge plan for tomorrow.
--- NOTE | 2018-10-20 20:17 | CR ---
Chest: Portable view of the chest was obtained. Comparison: Prior chest x-ray of 10/02/18. Heart size is normal. Tortuous thoracic aorta is seen. Slight atelectasis is noted within the left base. Lungs otherwise are clear. Mild degenerative change is noted within the spine. Widening of the superior mediastinum is seen which is felt compatible with tortuous great vessels. Impression: 1. Incidental findings. Nothing acute is appreciated. Diagnostic code #2
[2018-10-20] MEDS ORDERED: Rosuvastatin 10 MG Tab PO SCH (21:00)
[2018-10-20] MEDS ORDERED: Lisinopril 20 MG Tab PO SCH (21:00)
[2018-10-20] MEDS: Doxazosin 2 MG Tab PO SCH (21:29)
[2018-10-20] MEDS: QUINAPRIL 40 MG PO SCH (21:30)
[2018-10-20] MEDS: ROSUVASTATIN 20 MG PO SCH (21:30)
[2018-10-21] MEDS: Acetaminophen 325 MG Tab PO PRN ×4 (02:36→20:17)
[2018-10-21] MEDS: Sodium Chloride 0.9% 1,000 ML IV SCH (05:51)
[2018-10-21] MEDS ORDERED: NIFEdipine 30 MG Tab.ER PO SCH (09:00)
[2018-10-21] MEDS: Furosemide 40 MG Tab PO SCH (09:11)
[2018-10-21] MEDS ORDERED: NIFEDIPINE 60 MG PO SCH (09:15)
[2018-10-21] MEDS ORDERED: Loperamide 2 MG Cap PO STA (10:55)
[2018-10-21] MEDS ORDERED: Magnesium Sulfate/Water 4 GM in Premix Bag 1 BAG IV ONE (14:07)
--- NOTE | 2018-10-21 17:34 | PCM.PN ---
- General Info Date of Service: 10/21/18 Admission Dx/Problem (Free Text): Admission Diagnosis/Problem Admission Diagnosis/Problem Dehydration Subjective Update: Patient multiple episodes of diarrhea this morning. Was negative for C. difficile so we did give him one Imodium tablet. He is resting comfortably but he is weak now. Functional Status: Reports: Pain Controlled - Review of Systems General: Reports: Weakness HEENT: Reports: No Symptoms Pulmonary: Reports: No Symptoms Cardiovascular: Reports: No Symptoms Gastrointestinal: Reports: Diarrhea. Denies: Abdominal Pain, Constipation - Patient Data Vitals - Most Recent: Last Vital Signs Temp 98.8 F 10/21/18 15:04 Pulse 88 10/21/18 15:04 Resp 20 10/21/18 15:04 BP 131/64 10/21/18 15:54 Pulse Ox 92 L 10/21/18 15:04 Weight - Most Recent: 215 lb 3.2 oz I&O - Last 24 Hours: Intake & Output 10/21/18 10/21/18 10/21/18 06:59 14:59 22:59 Intake Total 3750 135 0149 Output Total 3 200 Balance 2984 953 4774 Lab Results Last 24 Hours: Laboratory Results - last 24 hr 10/20/18 10/20/18 10/21/18 Range/Units 18:20 23:50 06:57 WBC 4.91 (4.23-9.07) K/mm3 RBC 3.95 L (4.63-6.08) M/mm3 Hgb 12.1 L D (13.7-17.5) gm/L Hct 39.1 L (40.1-51.0) % MCV 99.0 H (79.0-92.2) fl MCH 30.6 (25.7-32.2) pg MCHC 30.9 L (32.2-35.5) g/dl RDW Std Deviation 47.1 H (35.1-43.9) fL Plt Count 107 L (163-337) K/mm3 MPV 10.0 (9.4-12.3) fl Neut % (Auto) 81.0 H (34.0-67.9) % Lymph % (Auto) 9.4 L (21.8-53.1) % Rich % (Auto) 9.2 (5.3-12.2) % Eos % (Auto) 0 L (0.8-7.0) Baso % (Auto) 0.0 L (0.1-1.2) % Neut # (Auto) 3.98 (1.78-5.38) K/mm3 Lymph # (Auto) 0.46 L (1.32-3.57) K/mm3 Rich # (Auto) 0.45 (0.30-0.82) K/mm3 Eos # (Auto) 0.00 L (0.04-0.54) K/mm3 Baso # (Auto) 0.00 L (0.01-0.08) K/mm3 Manual Slide Review Normal smear Sodium (136-145) mEq/L Potassium (3.5-5.1) mEq/L Chloride (98-107) mEq/L Carbon Dioxide (21-32) mEq/L Anion Gap (5-15) BUN (7-18) mg/dL Creatinine (0.7-1.3) mg/dL Est Cr Clr Drug Dosing mL/min Estimated GFR (MDRD) (>60) mL/min BUN/Creatinine Ratio (14-18) Glucose (83-115) mg/dL Calcium (8.5-10.1) mg/dL Magnesium (1.8-2.4) mg/dl Total Bilirubin (0.2-1.0) mg/dL AST (15-37) U/L ALT (16-63) U/L Alkaline Phosphatase (46-116) U/L Total Protein (6.4-8.2) g/dl Albumin (3.4-5.0) g/dl Globulin gm/dL Albumin/Globulin Ratio (1-2) C.difficile [id number] Presumptive negative C. difficile Tox (PCR) Negative MRSA (PCR) Negative 10/21/18 Range/Units 06:57 WBC (4.23-9.07) K/mm3 RBC (4.63-6.08) M/mm3 Hgb (13.7-17.5) gm/L Hct (40.1-51.0) % MCV (79.0-92.2) fl MCH (25.7-32.2) pg MCHC (32.2-35.5) g/dl RDW Std Deviation (35.1-43.9) fL Plt Count (163-337) K/mm3 MPV (9.4-12.3) fl Neut % (Auto) (34.0-67.9) % Lymph % (Auto) (21.8-53.1) % Rich % (Auto) (5.3-12.2) % Eos % (Auto) (0.8-7.0) Baso % (Auto) (0.1-1.2) % Neut # (Auto) (1.78-5.38) K/mm3 Lymph # (Auto) (1.32-3.57) K/mm3 Rich # (Auto) (0.30-0.82) K/mm3 Eos # (Auto) (0.04-0.54) K/mm3 Baso # (Auto) (0.01-0.08) K/mm3 Manual Slide Review Sodium 147 H (136-145) mEq/L Potassium 3.9 (3.5-5.1) mEq/L Chloride 109 H (98-107) mEq/L Carbon Dioxide 30 (21-32) mEq/L Anion Gap 11.9 (5-15) BUN 39 H (7-18) mg/dL Creatinine 1.6 H (0.7-1.3) mg/dL Est Cr Clr Drug Dosing 36.07 mL/min Estimated GFR (MDRD) 41 (>60) mL/min BUN/Creatinine Ratio 24.4 H (14-18) Glucose 127 H (83-115) mg/dL Calcium 7.8 L (8.5-10.1) mg/dL Magnesium 1.5 L (1.8-2.4) mg/dl Total Bilirubin 0.2 (0.2-1.0) mg/dL AST 30 (15-37) U/L ALT 27 (16-63) U/L Alkaline Phosphatase 46 (46-116) U/L Total Protein 5.7 L (6.4-8.2) g/dl Albumin 2.8 L (3.4-5.0) g/dl Globulin 2.9 gm/dL Albumin/Globulin Ratio 1.0 (1-2) C.difficile [id number] C. difficile Tox (PCR) MRSA (PCR) Med Orders - Current: Current Medications Acetaminophen (Tylenol) 650 mg PO Q4H PRN PRN Reason: Pain (Mild 1-3)/fever Last Admin: 10/21/18 15:57 Dose: 650 mg Doxazosin Mesylate (Cardura) 1 mg PO BEDTIME [facility] Last Admin: 10/20/18 21:29 Dose: 1 mg Furosemide (Lasix) 40 mg PO DAILY [facility] Last Admin: 10/21/18 09:11 Dose: 40 mg Sodium Chloride (Normal Saline) 1,000 mls @ 100 mls/hr IV ASDIRECTED [facility] Last Admin: 10/21/18 05:51 Dose: 100 mls/hr Magnesium Sulfate 4 gm/ Premix 50 mls @ 12.5 mls/hr IV ONETIME ONE Stop: 10/21/18 18:06 Last Admin: 10/21/18 14:30 Dose: 12.5 mls/hr Melatonin 5 Mg Tab (Own Med) 5 mg PO BEDTIME PRN PRN Reason: Insomnia Last Admin: 10/20/18 21:30 Dose: 5 mg Rosuvastatin 20mg (TabOwn Med) 1 each PO BEDTIME [facility] Last Admin: 10/20/18 21:30 Dose: 1 each Quinapril 40mg Tab (Own Med) 1 each PO BEDTIME [facility] Last Admin: 10/20/18 21:30 Dose: 1 each Nifedipine 60mg Tab (ErOwn Med) 1 each PO DAILY [facility] Ondansetron HCl (Zofran Odt) 4 mg PO Q6H PRN PRN Reason: nausea, able to take PO Sodium Chloride (Saline Flush) 10 ml FLUSH ASDIRECTED PRN PRN Reason: Keep Vein Open Last Admin: 10/20/18 07:59 Dose: 10 ml Temazepam (Restoril) 15 mg PO BEDTIME PRN PRN Reason: Insomnia Discontinued Medications Sodium Chloride (Normal Saline) 1,000 mls @ 1,000 mls/hr IV .BOLUS [facility] Last Admin: 10/20/18 07:59 Dose: 1,000 mls/hr Lisinopril (Prinivil) 20 mg PO BEDTIME [facility] Loperamide HCl (Imodium) 4 mg PO NOW STA Stop: 10/21/18 10:56 Last Admin: 10/21/18 11:15 Dose: 4 mg Nifedipine (Procardia Xl) 60 mg PO DAILY [facility] Last Admin: 10/21/18 09:38 Dose: 60 mg Ondansetron HCl (Zofran) 4 mg IVPUSH ONETIME ONE Stop: 10/20/18 07:48 Last Admin: 10/20/18 07:59 Dose: 4 mg Rosuvastatin Calcium (Crestor) 20 mg PO BEDTIME [facility] - Exam General: Alert, Oriented HEENT: Pupils Equal Neck: Supple Lungs: Clear to Auscultation, Normal Respiratory Effort, Rhonchi Cardiovascular: Regular Rate GI/Abdominal Exam: Normal Bowel Sounds, Soft, Non-Tender, No Distention - Problem List & Annotations (1) Dehydration SNOMED Code(s): 77959110 Code(s): E86.0 - DEHYDRATION Status: Acute Current Visit: Yes (2) Diarrhea SNOMED Code(s): 79022504 Code(s): R19.7 - DIARRHEA, UNSPECIFIED Status: Acute Current Visit: Yes (3) [place]' lung SNOMED Code(s): 20368037 Code(s): J67.0 - BONILLA'S LUNG Status: Acute Current Visit: Yes (4) Generalized weakness SNOMED Code(s): 49773046 Code(s): R53.1 - WEAKNESS Status: Acute Current Visit: Yes (5) Renal insufficiency SNOMED Code(s): 129340753, 776825522 Code(s): N28.9 - DISORDER OF KIDNEY AND URETER, UNSPECIFIED Status: Acute Current Visit: Yes - Problem List Review Problem List Initiated/Reviewed/Updated: Yes - My Orders Last 24 Hours: My Active Orders 10/20/18 18:41 Resuscitation Status Routine 10/20/18 20:15 Melatonin [Melatonin] 5 mg PO BEDTIME PRN 10/20/18 21:00 Doxazosin [Cardura] 1 mg PO BEDTIME Non-Formulary Medication [NF Drug] 1 each PO BEDTIME Non-Formulary Medication [NF Drug] 1 each PO BEDTIME 10/21/18 09:00 Furosemide [Lasix] 40 mg PO DAILY 10/21/18 09:15 Non-Formulary Medication [NF Drug] 1 each PO DAILY 10/21/18 14:07 Patient Status [ADT] Routine Magnesium Sulfate/Water [Magnesium Sulfate 4 GM in Water 50 ML] 4 gm Premix Bag 1 bag IV ONETIME - Plan Plan:: Dehydration secondary to diarrhea Multiple episodes of diarrhea overnight. Continue to monitor. Given 1 Imodium. Check CMP, CBC, and mag in the morning. Hypernatremia Switch IV fluids to D5 half-normal saline at 75 mL an hour and encourage by mouth intake. 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 Acute on chronic renal insufficiency Cautiously rehydrate Recheck CMP in the morning. Patient may require greater than the facilities that are available to him at his current home. They will reevaluate him prior to discharge.
[2018-10-21] MEDS ORDERED: Dextrose 5%-0.45% NaCl 1,000 ML IV SCH (17:45)
[2018-10-21] MEDS: Doxazosin 2 MG Tab PO SCH (20:16)
[2018-10-21] MEDS: QUINAPRIL 40 MG PO SCH (20:16)
[2018-10-21] MEDS: ROSUVASTATIN 20 MG PO SCH (20:17)
[2018-10-22] MEDS ORDERED: Calcium Carbonate 500 MG Tab.Chew PO ONE (00:16)
[2018-10-22] MEDS ORDERED: Lisinopril 20 MG Tab PO SCH (08:09)
[2018-10-22] MEDS: Furosemide 40 MG Tab PO SCH (09:30)
[2018-10-22] MEDS: NIFEdipine 30 MG Tab.ER PO SCH (09:32)
--- NOTE | 2018-10-22 09:49 | PCM.PN ---
- General Info Date of Service: 10/22/18 Admission Dx/Problem (Free Text): Admission Diagnosis/Problem Admission Diagnosis/Problem Dehydration Subjective Update: In to see Damian. He is just finishing up working with [employer]. He has been cleared for mechanical soft with thin liquids. It appears he has aspirated based on CXR, O2 demand and WBC. Zosyn started along with nebs. BNP is elevated so will scheduled 40mg IVP daily. Echo ordered. 1+ edema noted bilaterally. Functional Status: Reports: Pain Controlled, Tolerating Diet, Ambulating, Urinating, Incentive Spirometry, Other (acapella ). Denies: New Symptoms - Review of Systems General: Reports: No Symptoms, Weakness, Fatigue. Denies: Fever, Malaise HEENT: Reports: No Symptoms. Denies: Headaches Pulmonary: Reports: No Symptoms, Shortness of Breath, Cough, Wheezing. Denies: Pleuritic Chest Pain, Sputum Cardiovascular: Reports: No Symptoms, Dyspnea on Exertion, Edema. Denies: Chest Pain, Palpitations Gastrointestinal: Reports: No Symptoms. Denies: Abdominal Pain, Constipation, Diarrhea, Nausea, Vomiting Genitourinary: Reports: No Symptoms. Denies: Pain Musculoskeletal: Reports: No Symptoms Skin: Reports: No Symptoms. Denies: Cyanosis Neurological: Reports: No Symptoms. Denies: Confusion Psychiatric: Reports: No Symptoms - Patient Data Vitals - Most Recent: Last Vital Signs Temp 98.4 F 10/22/18 07:37 Pulse 85 10/22/18 07:37 Resp 18 10/22/18 07:37 BP 127/72 10/22/18 09:32 Pulse Ox 88 L 10/22/18 07:37 Weight - Most Recent: 225 lb I&O - Last 24 Hours: Intake & Output 10/21/18 10/22/18 10/22/18 22:59 06:59 14:59 Intake Total 1649 963 Output Total 200 Balance 1449 963 Lab Results Last 24 Hours: Laboratory Results - last 24 hr 10/22/18 10/22/18 Range/Units 05:16 05:16 WBC 14.74 H (4.23-9.07) K/mm3 RBC 3.89 L (4.63-6.08) M/mm3 Hgb 11.8 L (13.7-17.5) gm/L Hct 38.4 L (40.1-51.0) % MCV 98.7 H (79.0-92.2) fl MCH 30.3 (25.7-32.2) pg MCHC 30.7 L (32.2-35.5) g/dl RDW Std Deviation 47.0 H (35.1-43.9) fL Plt Count 116 L (163-337) K/mm3 MPV 10.8 (9.4-12.3) fl Neut % (Auto) 89.3 H (34.0-67.9) % Lymph % (Auto) 3.0 L (21.8-53.1) % [place] % (Auto) 7.3 (5.3-12.2) % Eos % (Auto) 0.1 L (0.8-7.0) Baso % (Auto) 0.1 (0.1-1.2) % Neut # (Auto) 13.16 H (1.78-5.38) K/mm3 Lymph # (Auto) 0.44 L (1.32-3.57) K/mm3 [place] # (Auto) 1.08 H (0.30-0.82) K/mm3 Eos # (Auto) 0.02 L (0.04-0.54) K/mm3 Baso # (Auto) 0.01 (0.01-0.08) K/mm3 Manual Slide Review Abnormal smear Sodium 144 (136-145) mEq/L Potassium 3.7 (3.5-5.1) mEq/L Chloride 107 (98-107) mEq/L Carbon Dioxide 27 (21-32) mEq/L Anion Gap 13.7 (5-15) BUN 46 H (7-18) mg/dL Creatinine 2.1 H (0.7-1.3) mg/dL Est Cr Clr Drug Dosing 27.48 mL/min Estimated GFR (MDRD) 30 (>60) mL/min BUN/Creatinine Ratio 21.9 H (14-18) Glucose 158 H (83-115) mg/dL Calcium 8.3 L (8.5-10.1) mg/dL Magnesium 2.1 (1.8-2.4) mg/dl Total Bilirubin 0.6 (0.2-1.0) mg/dL AST 110 H (15-37) U/L ALT 125 H (16-63) U/L Alkaline Phosphatase 84 (46-116) U/L Total Protein 6.0 L (6.4-8.2) g/dl Albumin 2.9 L (3.4-5.0) g/dl Globulin 3.1 gm/dL Albumin/Globulin Ratio 0.9 L (1-2) Med Orders - Current: Current Medications Acetaminophen (Tylenol) 650 mg PO Q4H PRN PRN Reason: Pain (Mild 1-3)/fever Last Admin: 10/21/18 20:17 Dose: 650 mg Doxazosin Mesylate (Cardura) 1 mg PO BEDTIME [facility] Last Admin: 10/21/18 20:16 Dose: 1 mg Furosemide (Lasix) 40 mg PO DAILY [facility] Last Admin: 10/22/18 09:30 Dose: 40 mg Dextrose/Sodium Chloride (Dextrose 5%-1/2 Ns) 1,000 mls @ 75 mls/hr IV ASDIRECTED [facility] Last Admin: 10/21/18 17:54 Dose: 75 mls/hr Sodium Chloride (Normal Saline) 1,000 mls @ 75 mls/hr IV ASDIRECTED [facility] Lisinopril (Prinivil) 20 mg PO BEDTIME [facility] Nifedipine (Procardia Xl) 60 mg PO DAILY [facility] Last Admin: 10/22/18 09:32 Dose: 60 mg Melatonin 5 Mg Tab (Own Med) 5 mg PO BEDTIME PRN PRN Reason: Insomnia Last Admin: 10/21/18 20:17 Dose: 5 mg Ondansetron HCl (Zofran Odt) 4 mg PO Q6H PRN PRN Reason: nausea, able to take PO Rosuvastatin Calcium (Crestor) 20 mg PO BEDTIME [facility] Sodium Chloride (Saline Flush) 10 ml FLUSH ASDIRECTED PRN PRN Reason: Keep Vein Open Last Admin: 10/20/18 07:59 Dose: 10 ml Temazepam (Restoril) 15 mg PO BEDTIME PRN PRN Reason: Insomnia Discontinued Medications Calcium Carbonate/Glycine (Tums) 500 mg PO Q2HR ONE Stop: 10/22/18 00:17 Last Admin: 10/22/18 00:22 Dose: 500 mg Sodium Chloride (Normal Saline) 1,000 mls @ 1,000 mls/hr IV .BOLUS [facility] Last Admin: 10/20/18 07:59 Dose: 1,000 mls/hr Sodium Chloride (Normal Saline) 1,000 mls @ 100 mls/hr IV ASDIRECTED [facility] Last Admin: 10/21/18 05:51 Dose: 100 mls/hr Magnesium Sulfate 4 gm/ Premix 50 mls @ 12.5 mls/hr IV ONETIME ONE Stop: 10/21/18 18:06 Last Admin: 10/21/18 14:30 Dose: 12.5 mls/hr Lisinopril (Prinivil) 20 mg PO BEDTIME [facility] Loperamide HCl (Imodium) 4 mg PO NOW STA Stop: 10/21/18 10:56 Last Admin: 10/21/18 11:15 Dose: 4 mg Nifedipine (Procardia Xl) 60 mg PO DAILY [facility] Last Admin: 10/21/18 09:38 Dose: 60 mg Rosuvastatin 20mg (TabOwn Med) 1 each PO BEDTIME [facility] Last Admin: 10/21/18 20:17 Dose: 1 each Quinapril 40mg Tab (Own Med) 1 each PO BEDTIME [facility] Last Admin: 10/21/18 20:16 Dose: 1 each Nifedipine 60mg Tab (ErOwn Med) 1 each PO DAILY [facility] Ondansetron HCl (Zofran) 4 mg IVPUSH ONETIME ONE Stop: 10/20/18 07:48 Last Admin: 10/20/18 07:59 Dose: 4 mg Rosuvastatin Calcium (Crestor) 20 mg PO BEDTIME [facility] - Exam Quality Assessment: Supplemental Oxygen, DVT Prophylaxis General: Alert, Oriented, Cooperative, No Acute Distress HEENT: Pupils Equal, Pupils Reactive, EOMI, Mucous Membr. Moist/[place] Neck: Supple, Trachea Midline, No JVD Lungs: Normal Respiratory Effort, Decreased Breath Sounds, Crackles, Wheezing ( mild ) Cardiovascular: Regular Rate, Regular Rhythm GI/Abdominal Exam: Normal Bowel Sounds, Soft, Non-Tender, No Organomegaly, No Distention (Male) Exam: Deferred Back Exam: Normal Inspection, Full Range of Motion Extremities: Normal Inspection, Normal Range of Motion, Non-Tender, Normal Capillary Refill, Pedal Edema (2+) Peripheral Pulses: 2+: Radial (L), Radial (R), Dorsalis Pedis (L), Dorsalis Pedis (R) Skin: Warm, Dry, Intact Neurological: No New Focal Deficit Psy/Mental Status: Alert - Problem List & Annotations (1) Dehydration SNOMED Code(s): 82078768 Code(s): E86.0 - DEHYDRATION Status: Acute Priority: High Current Visit : Yes (2) Diarrhea SNOMED Code(s): 18933547 Code(s): R19.7 - DIARRHEA, UNSPECIFIED Status: Acute Priority: High Current Visit: Yes (3) [place]' lung SNOMED Code(s): 35975161 Code(s): J67.0 - BONILLA'S LUNG Status: Chronic Priority: Medium Current Visit: Yes (4) Generalized weakness SNOMED Code(s): 70531220 Code(s): R53.1 - WEAKNESS Status: Acute Priority: High Current Visit: Yes (5) Renal insufficiency SNOMED Code(s): 150703126, 622904031 Code(s): N28.9 - DISORDER OF KIDNEY AND URETER, UNSPECIFIED Status: Acute Priority: High Current Visit: Yes (6) COPD (chronic obstructive pulmonary disease) SNOMED Code(s): 21293585 Code(s): J44.9 - CHRONIC OBSTRUCTIVE PULMONARY DISEASE, UNSPECIFIED Status : Chronic Priority: Medium Current Visit: No Qualifiers: COPD type: unspecified COPD Qualified Code(s): J44.9 - Chronic obstructive pulmonary disease, unspecified (7) Pneumonia SNOMED Code(s): 952289603 Code(s): J18.9 - PNEUMONIA, UNSPECIFIED ORGANISM Status: Acute Priority: High Current Visit: Yes Qualifiers: Pneumonia type: aspiration pneumonia Laterality: left Lung location: lower lobe of lung - Problem List Review Problem List Initiated/Reviewed/Updated: Yes - My Orders Last 24 Hours: My Active Orders 10/22/18 09:42 Consult to Case Management/[employer] In[employer] [CONS] Routine 10/22/18 09:47 A1C [GLYCOSYLATED HEMOGLOBIN,HGBA1C] [CHEM] Routine 10/22/18 10:00 Sodium Chloride 0.9% @ 75 MLS/HR(1000ml Bag) Sodium Chloride 0.9% [Normal Saline] 1,000 ml IV ASDIRECTED 10/23/18 05:11 BASIC METABOLIC PANEL,BMP [CHEM] AM CBC WITH AUTO DIFF [HEME] AM CRP [C-REACTIVE PROTEIN] [CHEM] AM MAGNESIUM [CHEM] AM 10/24/18 05:11 BASIC METABOLIC PANEL,BMP [CHEM] AM CBC WITH AUTO DIFF [HEME] AM CRP [C-REACTIVE PROTEIN] [CHEM] AM MAGNESIUM [CHEM] AM 10/25/18 05:11 BASIC METABOLIC PANEL,BMP [CHEM] AM CBC WITH AUTO DIFF [HEME] AM CRP [C-REACTIVE PROTEIN] [CHEM] AM MAGNESIUM [CHEM] AM 10/26/18 05:11 BASIC METABOLIC PANEL,BMP [CHEM] AM CBC WITH AUTO DIFF [HEME] AM CRP [C-REACTIVE PROTEIN] [CHEM] AM MAGNESIUM [CHEM] AM - Plan Plan:: Dehydration secondary to diarrhea Multiple episodes of diarrhea overnight. Continue to monitor. Given 1 Imodium. Check CMP, CBC, and mag in the morning. Negative C. Diff Stool WBC Stool studies Hypernatremia Switch IV fluids to D5 half-normal saline at 75 mL an hour and encourage by mouth intake. 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 Aspiration PNA Zosyn [employer] evaluation Aspiration precautions IS/Acapella/RT Fluid overload vs CHF BNP 6158 (was 126 earlier in month) Echo ordered Lasix 40mg now then 40mg IVP daily Sodium restriction 2-3+ pitting edema Patient may require greater than the facilities that are available to him at his current home. They will reevaluate him prior to discharge.
[2018-10-22] MEDS ORDERED: Sodium Chloride 0.9% 1,000 ML IV SCH (10:00)
[2018-10-22 10:21] LABS: HEMOGLOBIN A1C 6.2 % (4.50-6.20)
--- NOTE | 2018-10-22 13:13 | CR ---
Chest: Two views of the chest are obtained. Comparison: Prior chest x-ray of 10/20/18. Increasing parenchymal change is seen within the left lung base. Fluid is noted within the major and minor fissures on the right side as well as probable left-sided pleural effusion. Widening of the mediastinum is seen which appears stable. Tortuous thoracic aorta is noted. Heart does not appear enlarged. Impression: 1. Fluid within the major and minor fissures on the right side as well as possible small left-sided pleural effusion. 2. Increasing parenchymal density within the left lung base, differential includes atelectasis, aspiration as well as pneumonia if patient has infectious symptoms. 3. Other incidental findings. Diagnostic code #3
[2018-10-22] MEDS ORDERED: Furosemide 40 MG/4 ML VIAL IVPUSH SCH (15:15)
[2018-10-22] MEDS: Albuterol/Ipratropium 3.0-0.5 MG/3 ML Neb Soln NEB SCH ×2 (15:27→21:14)
[2018-10-22] MEDS: Piperacillin/Tazobactam 4.5 GM in Sodium Chloride 0.9% 100 ML IV ONE ×2 (16:52→16:56)
[2018-10-22] MEDS: Doxazosin 2 MG Tab PO SCH (20:41)
[2018-10-22] MEDS: Rosuvastatin 10 MG Tab PO SCH (20:42)
[2018-10-22] MEDS ORDERED: Piperacillin/Tazobactam 4.5 GM in Sodium Chloride 0.9% 100 ML IV SCH (23:30)
[2018-10-23] MEDS: Piperacillin/Tazobactam 4.5 GM in Sodium Chloride 0.9% 100 ML IV SCH ×3 (01:15→13:39)
[2018-10-23] MEDS: Albuterol/Ipratropium 3.0-0.5 MG/3 ML Neb Soln NEB SCH ×4 (05:39→22:16)
[2018-10-23] MEDS ORDERED: Furosemide 100 MG in Sodium Chloride 0.9% 90 ML IV SCH (06:45)
--- NOTE | 2018-10-23 09:50 | PCM.PN ---
- General Info Date of Service: 10/23/18 Admission Dx/Problem (Free Text): Admission Diagnosis/Problem Admission Diagnosis/Problem Dehydration Subjective Update: Patient was moved to the unit due to considerable hypoxia. His O2 sat drops in the low 80s despite being on supplemental O2 (12L NC). He is currently on BIPAP with a setting of 14/7; he is sating at 92-100%. His Hgb is stable but his Cr is now 3.3; 1.9 on admission. He has no complaints at the time of my examination. He is afebrile with CRP of 17.9. His ProBNP is slightly up at 6158. Functional Status: Reports: Pain Controlled, Tolerating Diet, Ambulating, Urinating. Denies: New Symptoms - Review of Systems General: Denies: Fever, Weakness, Fatigue, Malaise HEENT: Reports: No Symptoms Pulmonary: Denies: Shortness of Breath, Sputum, Wheezing Cardiovascular: Denies: Chest Pain Gastrointestinal: Denies: Abdominal Pain, Nausea, Vomiting Genitourinary: Reports: Frequency Musculoskeletal: Reports: No Symptoms Skin: Denies: Cyanosis, Mottled, Pallor, Diaphoresis, Bruising, Rash Neurological: Reports: Weakness, Gait Disturbance. Denies: Confusion Psychiatric: Denies: Depression, Anxiety, Agitation, Hallucinations - Patient Data Vitals - Most Recent: Last Vital Signs Temp 36.6 C 10/23/18 08:00 Pulse 74 10/23/18 08:00 Resp 18 10/23/18 08:00 BP 110/47 L 10/23/18 08:00 Pulse Ox 92 L 10/23/18 08:38 Weight - Most Recent: 99.972 kg I&O - Last 24 Hours: Intake & Output 10/22/18 10/23/18 10/23/18 22:59 06:59 14:59 Intake Total 500 800 Balance 500 800 Lab Results Last 24 Hours: Laboratory Results - last 24 hr 10/22/18 10/22/18 10/22/18 Range/Units 05:11 05:16 14:10 WBC (4.23-9.07) K/mm3 RBC (4.63-6.08) M/mm3 Hgb (13.7-17.5) gm/L Hct (40.1-51.0) % MCV (79.0-92.2) fl MCH (25.7-32.2) pg MCHC (32.2-35.5) g/dl RDW Std Deviation (35.1-43.9) fL Plt Count (163-337) K/mm3 MPV (9.4-12.3) fl Neut % (Auto) (34.0-67.9) % Lymph % (Auto) (21.8-53.1) % [place] % (Auto) (5.3-12.2) % Eos % (Auto) (0.8-7.0) Baso % (Auto) (0.1-1.2) % Neut # (Auto) (1.78-5.38) K/mm3 Lymph # (Auto) (1.32-3.57) K/mm3 [place] # (Auto) (0.30-0.82) K/mm3 Eos # (Auto) (0.04-0.54) K/mm3 Baso # (Auto) (0.01-0.08) K/mm3 Manual Slide Review Puncture Site ABG pH (7.35-7.45) ABG pCO2 (35.0-45.0) mmHg ABG pO2 (80.0-100.0) mmHg ABG HCO3 (22.0-26.0) meq/L ABG O2 Saturation (96.0-97.0) % ABG Base Excess (-2-2.0) Edson Test O2 Delivery Device Oxygen Flow Rate FiO2 (21.00-100.00) % Sodium (136-145) mEq/L Potassium (3.5-5.1) mEq/L Chloride (98-107) mEq/L Carbon Dioxide (21-32) mEq/L Anion Gap (5-15) BUN (7-18) mg/dL Creatinine (0.7-1.3) mg/dL Est Cr Clr Drug Dosing mL/min Estimated GFR (MDRD) (>60) mL/min BUN/Creatinine Ratio (14-18) Glucose (83-115) mg/dL Hemoglobin A1c 6.20 (4.50-6.20) % Lactic Acid (0.4-2.0) mmol/L Calcium (8.5-10.1) mg/dL Magnesium (1.8-2.4) mg/dl C-Reactive Protein (<1.0) mg/dL NT-Pro-B Natriuret Pep 6158 H (0-450) pg/mL Mycoplasma pneumon IgM Negative (NEGATIVE) 10/22/18 10/23/18 10/23/18 Range/Units 14:10 06:04 06:04 WBC 10.79 H (4.23-9.07) K/mm3 RBC 3.73 L (4.63-6.08) M/mm3 Hgb 11.2 L (13.7-17.5) gm/L Hct 36.3 L (40.1-51.0) % MCV 97.3 H (79.0-92.2) fl MCH 30.0 (25.7-32.2) pg MCHC 30.9 L (32.2-35.5) g/dl RDW Std Deviation 47.0 H (35.1-43.9) fL Plt Count 120 L (163-337) K/mm3 MPV 11.0 (9.4-12.3) fl Neut % (Auto) 84.7 H (34.0-67.9) % Lymph % (Auto) 7.0 L (21.8-53.1) % Hays % (Auto) 7.7 (5.3-12.2) % Eos % (Auto) 0.3 L (0.8-7.0) Baso % (Auto) 0.1 (0.1-1.2) % Neut # (Auto) 9.15 H (1.78-5.38) K/mm3 Lymph # (Auto) 0.75 L (1.32-3.57) K/mm3 [place] # (Auto) 0.83 H (0.30-0.82) K/mm3 Eos # (Auto) 0.03 L (0.04-0.54) K/mm3 Baso # (Auto) 0.01 (0.01-0.08) K/mm3 Manual Slide Review Abnormal smear Puncture Site ABG pH (7.35-7.45) ABG pCO2 (35.0-45.0) mmHg ABG pO2 (80.0-100.0) mmHg ABG HCO3 (22.0-26.0) meq/L ABG O2 Saturation (96.0-97.0) % ABG Base Excess (-2-2.0) Edson Test O2 Delivery Device Oxygen Flow Rate FiO2 (21.00-100.00) % Sodium 140 (136-145) mEq/L Potassium 4.0 (3.5-5.1) mEq/L Chloride 104 (98-107) mEq/L Carbon Dioxide 27 (21-32) mEq/L Anion Gap 13.0 (5-15) BUN 67 H (7-18) mg/dL Creatinine 3.3 H (0.7-1.3) mg/dL Est Cr Clr Drug Dosing 17.49 mL/min Estimated GFR (MDRD) 18 (>60) mL/min BUN/Creatinine Ratio 20.3 H (14-18) Glucose 142 H (83-115) mg/dL Hemoglobin A1c (4.50-6.20) % Lactic Acid 1.0 (0.4-2.0) mmol/L Calcium 8.5 (8.5-10.1) mg/dL Magnesium 2.3 (1.8-2.4) mg/dl C-Reactive Protein 17.9 H* (<1.0) mg/dL NT-Pro-B Natriuret Pep (0-450) pg/mL Mycoplasma pneumon IgM (NEGATIVE) 10/23/18 10/23/18 Range/Units 06:04 06:44 WBC (4.23-9.07) K/mm3 RBC (4.63-6.08) M/mm3 Hgb (13.7-17.5) gm/L Hct (40.1-51.0) % MCV (79.0-92.2) fl MCH (25.7-32.2) pg MCHC (32.2-35.5) g/dl RDW Std Deviation (35.1-43.9) fL Plt Count (163-337) K/mm3 MPV (9.4-12.3) fl Neut % (Auto) (34.0-67.9) % Lymph % (Auto) (21.8-53.1) % [place] % (Auto) (5.3-12.2) % Eos % (Auto) (0.8-7.0) Baso % (Auto) (0.1-1.2) % Neut # (Auto) (1.78-5.38) K/mm3 Lymph # (Auto) (1.32-3.57) K/mm3 [place] # (Auto) (0.30-0.82) K/mm3 Eos # (Auto) (0.04-0.54) K/mm3 Baso # (Auto) (0.01-0.08) K/mm3 Manual Slide Review Puncture Site Rt radial ABG pH 7.22 L (7.35-7.45) ABG pCO2 62.0 H (35.0-45.0) mmHg ABG pO2 69.0 L (80.0-100.0) mmHg ABG HCO3 24.6 (22.0-26.0) meq/L ABG O2 Saturation 93.4 L (96.0-97.0) % ABG Base Excess -3.4 L (-2-2.0) Edson Test Positive O2 Delivery Device Mask Oxygen Flow Rate 10.0 FiO2 0.00 L (21.00-100.00) % Sodium (136-145) mEq/L Potassium (3.5-5.1) mEq/L Chloride (98-107) mEq/L Carbon Dioxide (21-32) mEq/L Anion Gap (5-15) BUN (7-18) mg/dL Creatinine (0.7-1.3) mg/dL Est Cr Clr Drug Dosing mL/min Estimated GFR (MDRD) (>60) mL/min BUN/Creatinine Ratio (14-18) Glucose (83-115) mg/dL Hemoglobin A1c (4.50-6.20) % Lactic Acid (0.4-2.0) mmol/L Calcium (8.5-10.1) mg/dL Magnesium (1.8-2.4) mg/dl C-Reactive Protein (<1.0) mg/dL NT-Pro-B Natriuret Pep 6652 H (0-450) pg/mL Mycoplasma pneumon IgM (NEGATIVE) [place] Results Last 24 Hours: Microbiology 10/22/18 18:15 Stool for WBCs - Final Stool / Feces NO WBC SEEN 10/22/18 13:30 Influenza Type A Antigen Screen - Final Nasal, Unspecified NEGATIVE INFLUENZA A VIRUS AG Influenza Type B Antigen Screen - Final NEGATIVE INFLUENZA B VIRUS AG Med Orders - Current: Current Medications Acetaminophen (Tylenol) 650 mg PO Q4H PRN PRN Reason: Pain (Mild 1-3)/fever Last Admin: 10/21/18 20:17 Dose: 650 mg Albuterol/Ipratropium (Duoneb 3.0-0.5 Mg/3 Ml) 3 ml NEB QIDRT [facility] Last Admin: 10/23/18 05:39 Dose: 3 ml Doxazosin Mesylate (Cardura) 1 mg PO BEDTIME [facility] Last Admin: 10/22/18 20:41 Dose: 1 mg Furosemide 100 mg/ Sodium (Chloride) 100 mls @ 4 mls/hr IV TITRATE [facility]; Protocol Last Admin: 10/23/18 08:03 Dose: 4 mls/hr Piperacillin Sod/Tazobactam (Sod 4.5 gm/ Sodium Chloride) 100 mls @ 25 mls/hr IV Q12H [facility] Nifedipine (Procardia Xl) 60 mg PO DAILY [facility] Last Admin: 10/22/18 09:32 Dose: 60 mg Melatonin 5 Mg Tab (Own Med) 5 mg PO BEDTIME PRN PRN Reason: Insomnia Last Admin: 10/21/18 20:17 Dose: 5 mg Ondansetron HCl (Zofran Odt) 4 mg PO Q6H PRN PRN Reason: nausea, able to take PO Rosuvastatin Calcium (Crestor) 20 mg PO BEDTIME [facility] Last Admin: 10/22/18 20:42 Dose: 20 mg Sodium Chloride (Saline Flush) 10 ml FLUSH ASDIRECTED PRN PRN Reason: Keep Vein Open Last Admin: 10/20/18 07:59 Dose: 10 ml Temazepam (Restoril) 15 mg PO BEDTIME PRN PRN Reason: Insomnia Discontinued Medications Calcium Carbonate/Glycine (Tums) 500 mg PO Q2HR ONE Stop: 10/22/18 00:17 Last Admin: 10/22/18 00:22 Dose: 500 mg Furosemide (Lasix) 40 mg PO DAILY [facility] Last Admin: 10/22/18 09:30 Dose: 40 mg Furosemide (Lasix) 40 mg IVPUSH DAILY [facility] Last Admin: 10/22/18 16:53 Dose: 40 mg Sodium Chloride (Normal Saline) 1,000 mls @ 1,000 mls/hr IV .BOLUS [facility] Last Admin: 10/20/18 07:59 Dose: 1,000 mls/hr Sodium Chloride (Normal Saline) 1,000 mls @ 100 mls/hr IV ASDIRECTED [facility] Last Admin: 10/21/18 05:51 Dose: 100 mls/hr Magnesium Sulfate 4 gm/ Premix 50 mls @ 12.5 mls/hr IV ONETIME ONE Stop: 10/21/18 18:06 Last Admin: 10/21/18 14:30 Dose: 12.5 mls/hr Dextrose/Sodium Chloride (Dextrose 5%-1/2 Ns) 1,000 mls @ 75 mls/hr IV ASDIRECTED [facility] Last Admin: 10/21/18 17:54 Dose: 75 mls/hr Sodium Chloride (Normal Saline) 1,000 mls @ 75 mls/hr IV ASDIRECTED [facility] Piperacillin Sod/Tazobactam (Sod 4.5 gm/ Sodium Chloride) 100 mls @ 200 mls/hr IV ONETIME ONE Stop: 10/22/18 15:59 Last Admin: 10/22/18 16:56 Dose: 200 mls/hr Piperacillin Sod/Tazobactam (Sod 4.5 gm/ Sodium Chloride) 100 mls @ 25 mls/hr IV Q8H [facility] Piperacillin Sod/Tazobactam (Sod 4.5 gm/ Sodium Chloride) 100 mls @ 25 mls/hr IV Q8H [facility] Last Admin: 10/23/18 01:15 Dose: 25 mls/hr Lisinopril (Prinivil) 20 mg PO BEDTIME [facility] Lisinopril (Prinivil) 20 mg PO BEDTIME [facility] Loperamide HCl (Imodium) 4 mg PO NOW STA Stop: 10/21/18 10:56 Last Admin: 10/21/18 11:15 Dose: 4 mg Nifedipine (Procardia Xl) 60 mg PO DAILY [facility] Last Admin: 10/21/18 09:38 Dose: 60 mg Rosuvastatin 20mg (TabOwn Med) 1 each PO BEDTIME [facility] Last Admin: 10/21/18 20:17 Dose: 1 each Quinapril 40mg Tab (Own Med) 1 each PO BEDTIME [facility] Last Admin: 10/21/18 20:16 Dose: 1 each Nifedipine 60mg Tab (ErOwn Med) 1 each PO DAILY [facility] Ondansetron HCl (Zofran) 4 mg IVPUSH ONETIME ONE Stop: 10/20/18 07:48 Last Admin: 10/20/18 07:59 Dose: 4 mg Rosuvastatin Calcium (Crestor) 20 mg PO BEDTIME [facility]AD[facility] - Exam Quality Assessment: Supplemental Oxygen General: Alert, Cooperative, No Acute Distress HEENT: Pupils Equal, Pupils Reactive, Mucous Membr. Moist/[place] Neck: Supple, Trachea Midline Lungs: Normal Respiratory Effort, Decreased Breath Sounds, Crackles (at the bases) Cardiovascular: Regular Rate, Regular Rhythm, No Murmurs GI/Abdominal Exam: Normal Bowel Sounds, Soft, Non-Tender, No Organomegaly, No Distention, No Abnormal Bruit (Male) Exam: Deferred Back Exam: Normal Inspection, Decreased Range of Motion Extremities: Normal Inspection, Normal Range of Motion, Non-Tender, Normal Capillary Refill, Pedal Edema (trace) Peripheral Pulses: 2+: Dorsalis Pedis (L), Dorsalis Pedis (R) Skin: Warm, Dry, Intact Neurological: No New Focal Deficit (limited but grossly intact). No: Normal Gait Psy/Mental Status: Alert, Normal Affect, Normal Mood - Problem List Review Problem List Initiated/Reviewed/Updated: Yes - Plan Plan:: Assessment/Plan: Acute: Respiratory failure - Has baseline pulmonary insufficiency - 2L NC--> 12 LNC last night and now on BIPAP 13/01; continue current treatment - ABG as indicated Acute Kidney Injury - Acute on chronic renal insufficiency - Worsening renal function: Cr 1.6-->2.1-->3.3 - Urine output is good - He has been on lasix drip; will hold it for now Aspiration PNA - IV Zosyn for pharmacy to dose - Afebrile - WBC is 10.79 and CRP is 17.9 - HOT OILER evaluation - Aspiration precautions - IS/Acapella/RT Fluid overload vs CHF - BNP 6158 (was 126 earlier in month)-->6652 - Echo completed this AM - Hold Lasix dose and will repeat labs Inactive: 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 Continue to monitor. Given 1 Imodium. - Check CMP, CBC, and mag in the morning - Negative C. Diff - Stool WBC-non (not infectious) - He is now tolerating current diet - Stool studies S/p Hypernatremia - Switch IV fluids to D5 half-normal saline at 75 mL an hour and encourage by mouth intake - 2/2 IV Zosyn plus NS received Chronic: Impaired Vision HTN HLD Constipation Prostate Disorder Plan: Patient was moved to the unit due to worsening hypoxia Routine AM Labs RT/PT/OT to assess and treat GI and DVT PPx SW/CM for d/c planning Updated family at bedside regarding overnight issues, diagnoses, morning labs and treatment plan. Patient may require greater than the facilities that are available to him at his current home. They will reevaluate him prior to discharge.
[2018-10-23] MEDS: NIFEdipine 30 MG Tab.ER PO SCH (10:50)
[2018-10-23] MEDS: Rosuvastatin 10 MG Tab PO SCH (20:06)
[2018-10-23] MEDS: Doxazosin 2 MG Tab PO SCH (20:07)
[2018-10-23] MEDS: Acetaminophen 325 MG Tab PO PRN (20:13)
[2018-10-23] MEDS ORDERED: Sodium Chloride 0.9% 1,000 ML IV SCH (20:45)
[2018-10-23] MEDS ORDERED: Albuterol/Ipratropium 3.0-0.5 MG/3 ML Neb Soln NEB PRN (22:59)
[2018-10-23] MEDS ORDERED: methylPREDNISolone Sodium Succinate 40 MG/1 ML SDV IVPUSH ONE (23:00)
[2018-10-24] MEDS: Piperacillin/Tazobactam 4.5 GM in Sodium Chloride 0.9% 100 ML IV SCH ×2 (00:29→12:22)
[2018-10-24] MEDS: Albuterol/Ipratropium 3.0-0.5 MG/3 ML Neb Soln NEB SCH ×4 (05:27→20:50)
[2018-10-24] MEDS: Acetaminophen 325 MG Tab PO PRN ×2 (07:27→20:15)
--- NOTE | 2018-10-24 08:22 | CR ---
Chest: Portable view of the chest was obtained. Comparison: Prior chest x-ray of 10/22/18. Limited inspiratory study is noted. No significant change from prior chest x-ray is otherwise seen. Impression: 1. Limited inspiratory study. No definite change from previous chest x-ray. Diagnostic code #2
[2018-10-24] MEDS: methylPREDNISolone Sodium Succinate 40 MG/1 ML SDV IVPUSH SCH ×2 (09:26→20:14)
[2018-10-24] MEDS: NIFEdipine 30 MG Tab.ER PO SCH (09:27)
[2018-10-24] MEDS ORDERED: Sodium Chloride 0.9% 1,000 ML IV SCH (09:45)
--- NOTE | 2018-10-24 10:44 | CT ---
CT chest Technique: Multiple axial sections were obtained from above the lung apices inferiorly through the lung bases. Intravenous contrast was not utilized. Findings: Small right sided pleural effusion is seen. Minimal left-sided pleural effusion is noted. Areas of mild consolidation are noted within both lung bases. Fluid is noted within the right major fissure. Lungs otherwise are clear. Atherosclerotic calcification is seen within the thoracic aorta. No mediastinal adenopathy is seen. Aorta shows no aneurysm. Coronary artery calcification is noted. Cysts are noted within the left kidney. Impression: 1. Small bilateral pleural effusions. Mild consolidation within both lung bases, difficult to exclude small areas of pneumonia if patient has infectious symptoms. 2. Other incidental findings. Diagnostic code #3
--- NOTE | 2018-10-24 12:08 | US ---
Renal ultrasound: Multiple real-time images of the kidneys were obtained. Comparison: Prior chest CT partially showing the kidneys performed earlier on the same day (9:40 AM). Small cortical cyst seen within the right kidney measuring 9 mm. Superior cortical cyst is noted within the left kidney measuring 3.6 cm in size. Renal pelvis within the left kidney is slightly prominent. No additional abnormality is appreciated within the kidneys. Resistivity index is slightly increased within the upper left kidney but other resistivity indices are normal. Measurements: Right kidney length: 12.6 cm Left kidney length: 12.2 cm Impression: 1. Cysts within each kidney. 2. Slightly prominent collecting system within the left kidney, please correlate that patient has no symptoms of left ureteral obstruction. If any clinical questions remain, CT exam could be obtained as a renal stone protocol to further evaluate. Diagnostic code #3
--- NOTE | 2018-10-24 13:22 | PCM.PN ---
- General Info Date of Service: 10/24/18 Admission Dx/Problem (Free Text): Admission Diagnosis/Problem Admission Diagnosis/Problem Dehydration Subjective Update: Follow Up Functional Status: Reports: Pain Controlled, Tolerating Diet, Urinating. Denies : New Symptoms - Review of Systems General: Denies: Fever, Weakness, Fatigue, Malaise, Chills HEENT: Reports: No Symptoms Pulmonary: Reports: Cough. Denies: Shortness of Breath Cardiovascular: Denies: Chest Pain, Dyspnea on Exertion, Lightheadedness Gastrointestinal: Denies: Abdominal Pain, Nausea, Vomiting Genitourinary: Reports: No Symptoms Musculoskeletal: Reports: No Symptoms Skin: Denies: Cyanosis, Mottled, Pallor, Diaphoresis, Bruising Neurological: Reports: Pre-Existing Deficit, Difficulty Walking, Weakness, Gait Disturbance. Denies: Confusion Psychiatric: Denies: Depression, Mood Lability, Anxiety, Agitation Systems Review Comment:: No significant overnight or acute issues. Although he states he did not sleep well overnight. Not sure if his sleeping pills were given to him. He remains afebrile w/o leukocytosis. His Cr continues to trend up but his urine output is good. His CRP and proBNP decreased to 137 and 5739, respectively. He feels a little better this morning and he is now down to 6L on NC sating at 89-90%. - Patient Data Vitals - Most Recent: Last Vital Signs Temp 36.5 C 10/24/18 12:00 Pulse 75 10/23/18 15:49 Resp 23 H 10/24/18 12:00 BP 131/65 10/24/18 12:00 Pulse Ox 90 L 10/24/18 12:00 Weight - Most Recent: 100.289 kg I&O - Last 24 Hours: Intake & Output 10/23/18 10/24/18 10/24/18 22:59 06:59 14:59 Intake Total 941 600 320 Output Total 460 275 270 Balance 481 325 50 Lab Results Last 24 Hours: Laboratory Results - last 24 hr 10/22/18 10/23/18 10/24/18 Range/Units 13:00 19:30 05:38 WBC 7.07 (4.23-9.07) K/mm3 RBC 3.80 L (4.63-6.08) M/mm3 Hgb 11.3 L (13.7-17.5) gm/L Hct 36.0 L (40.1-51.0) % MCV 94.7 H (79.0-92.2) fl MCH 29.7 (25.7-32.2) pg MCHC 31.4 L (32.2-35.5) g/dl RDW Std Deviation 44.7 H (35.1-43.9) fL Plt Count 127 L (163-337) K/mm3 MPV 11.2 (9.4-12.3) fl Neut % (Auto) 89.8 H (34.0-67.9) % Lymph % (Auto) 8.5 L (21.8-53.1) % [place] % (Auto) 1.6 L (5.3-12.2) % Eos % (Auto) 0 L (0.8-7.0) Baso % (Auto) 0.0 L (0.1-1.2) % Neut # (Auto) 6.35 H (1.78-5.38) K/mm3 Lymph # (Auto) 0.60 L (1.32-3.57) K/mm3 [place] # (Auto) 0.11 L (0.30-0.82) K/mm3 Eos # (Auto) 0.00 L (0.04-0.54) K/mm3 Baso # (Auto) 0.00 L (0.01-0.08) K/mm3 Manual Slide Review Abnormal smear Sodium 142 (136-145) mEq/L Potassium 3.7 (3.5-5.1) mEq/L Chloride 105 (98-107) mEq/L Carbon Dioxide 27 (21-32) mEq/L Anion Gap 13.7 (5-15) BUN 76 H (7-18) mg/dL Creatinine 3.9 H (0.7-1.3) mg/dL Est Cr Clr Drug Dosing 14.73 mL/min Estimated GFR (MDRD) 15 (>60) mL/min BUN/Creatinine Ratio 19.5 H (14-18) Glucose 161 H (83-115) mg/dL Calcium 8.3 L (8.5-10.1) mg/dL Magnesium 2.1 (1.8-2.4) mg/dl C-Reactive Protein (<1.0) mg/dL NT-Pro-B Natriuret Pep (0-450) pg/mL Adenovirus (PCR) Not detected (Not Detected) B. pertussis DNA (PCR) Not detected (Not Detected) B.parapertussis DNA PCR Not detected (Not Detected) C. pneumoniae DNA (PCR) Not detected (Not Detected) Coronavirus (PCR) Not detected (Not Detected) Human Metapneumovir PCR Not detected (Not Detected) Influenza A (RT-PCR) Not detected (Not Detected) Influenza B (RT-PCR) Not detected (Not Detected) M. pneumoniae (PCR) Not detected (Not Detected) Parainfluen 1,2,3,4 PCR Not detected (Not Detected) RSV (PCR) Not detected (Not Detected) Entero/Rhino (PCR) Not detected (Not Detected) 10/24/18 10/24/18 Range/Units 05:38 05:38 WBC (4.23-9.07) K/mm3 RBC (4.63-6.08) M/mm3 Hgb (13.7-17.5) gm/L Hct (40.1-51.0) % MCV (79.0-92.2) fl MCH (25.7-32.2) pg MCHC (32.2-35.5) g/dl RDW Std Deviation (35.1-43.9) fL Plt Count (163-337) K/mm3 MPV (9.4-12.3) fl Neut % (Auto) (34.0-67.9) % Lymph % (Auto) (21.8-53.1) % [place] % (Auto) (5.3-12.2) % Eos % (Auto) (0.8-7.0) Baso % (Auto) (0.1-1.2) % Neut # (Auto) (1.78-5.38) K/mm3 Lymph # (Auto) (1.32-3.57) K/mm3 [place] # (Auto) (0.30-0.82) K/mm3 Eos # (Auto) (0.04-0.54) K/mm3 Baso # (Auto) (0.01-0.08) K/mm3 Manual Slide Review Sodium 140 (136-145) mEq/L Potassium 4.2 (3.5-5.1) mEq/L Chloride 104 (98-107) mEq/L Carbon Dioxide 24 (21-32) mEq/L Anion Gap 16.2 H (5-15) BUN 82 H (7-18) mg/dL Creatinine 4.2 H (0.7-1.3) mg/dL Est Cr Clr Drug Dosing 13.67 mL/min Estimated GFR (MDRD) 13 (>60) mL/min BUN/Creatinine Ratio 19.5 H (14-18) Glucose 189 H (83-115) mg/dL Calcium 8.5 (8.5-10.1) mg/dL Magnesium 2.2 (1.8-2.4) mg/dl C-Reactive Protein 13.7 H* (<1.0) mg/dL NT-Pro-B Natriuret Pep 5739 H (0-450) pg/mL Adenovirus (PCR) (Not Detected) B. pertussis DNA (PCR) (Not Detected) B.parapertussis DNA PCR (Not Detected) C. pneumoniae DNA (PCR) (Not Detected) Coronavirus (PCR) (Not Detected) Human Metapneumovir PCR (Not Detected) Influenza A (RT-PCR) (Not Detected) Influenza B (RT-PCR) (Not Detected) M. pneumoniae (PCR) (Not Detected) Parainfluen 1,2,3,4 PCR (Not Detected) RSV (PCR) (Not Detected) Entero/Rhino (PCR) (Not Detected) [place] Results Last 24 Hours: Microbiology 10/23/18 03:55 Stool Culture - Preliminary Stool / Feces Shiga Toxin I - Final NEGATIVE FOR SHIGA TOXIN 1 Shiga Toxin II - Final NEGATIVE FOR SHIGA TOXIN 2 10/20/18 09:14 Streptococcus pneumoniae Antigen (M - Final Urine Med Orders - Current: Current Medications Acetaminophen (Tylenol) 650 mg PO Q4H PRN PRN Reason: Pain (Mild 1-3)/fever Last Admin: 10/24/18 07:27 Dose: 650 mg Albuterol/Ipratropium (Duoneb 3.0-0.5 Mg/3 Ml) 3 ml NEB QIDRT MILADYS Last Admin: 10/24/18 10:19 Dose: 3 ml Albuterol/Ipratropium (Duoneb 3.0-0.5 Mg/3 Ml) 3 ml NEB Q4H PRN PRN Reason: Wheezing Doxazosin Mesylate (Cardura) 1 mg PO BEDTIME FOR[facility]LY [facility], [facility]1983 Last Admin: 10/23/18 20:07 Dose: 1 mg Piperacillin Sod/Tazobactam (Sod 4.5 gm/ Sodium Chloride) 100 mls @ 25 mls/hr IV Q12H [facility], [facility] Last Admin: 10/24/18 12:22 Dose: 25 mls/hr Sodium Chloride (Normal Saline) 1,000 mls @ 50 mls/hr IV ASDIRECTED [facility], [facility]1983 Last Infusion: 10/24/18 09:38 Dose: 25 mls/hr Sodium Chloride (Normal Saline) 1,000 mls @ 25 mls/hr IV ASDIRECTED [facility], [facility]1983 Methylprednisolone Sodium Succinate (Solu-Medrol) 40 mg IVPUSH Q12H [facility], [facility]1983 Stop: 10/25/18 21:01 Last Admin: 10/24/18 09:26 Dose: 40 mg Nifedipine (Procardia Xl) 60 mg PO DAILY [facility], [facility] Last Admin: 10/24/18 09:27 Dose: 60 mg Melatonin 5 Mg Tab (Own Med) 5 mg PO BEDTIME PRN PRN Reason: Insomnia Last Admin: 10/21/18 20:17 Dose: 5 mg Ondansetron HCl (Zofran Odt) 4 mg PO Q6H PRN PRN Reason: nausea, able to take PO Rosuvastatin Calcium (Crestor) 20 mg PO BEDTIME [facility] Last Admin: 10/23/18 20:06 Dose: 20 mg Sodium Chloride (Saline Flush) 10 ml FLUSH ASDIRECTED PRN PRN Reason: Keep Vein Open Last Admin: 10/20/18 07:59 Dose: 10 ml Temazepam (Restoril) 15 mg PO BEDTIME PRN PRN Reason: Insomnia Discontinued Medications Calcium Carbonate/Glycine (Tums) 500 mg PO Q2HR ONE Stop: 10/22/18 00:17 Last Admin: 10/22/18 00:22 Dose: 500 mg Furosemide (Lasix) 40 mg PO DAILY [facility], [facility] Last Admin: 10/22/18 09:30 Dose: 40 mg Furosemide (Lasix) 40 mg IVPUSH DAILY [facility] Last Admin: 10/22/18 16:53 Dose: 40 mg Sodium Chloride (Normal Saline) 1,000 mls @ 1,000 mls/hr IV .BOLUS [facility], [facility] Last Admin: 10/20/18 07:59 Dose: 1,000 mls/hr Sodium Chloride (Normal Saline) 1,000 mls @ 100 mls/hr IV ASDIRECTED MILADYS Last Admin: 10/21/18 05:51 Dose: 100 mls/hr Magnesium Sulfate 4 gm/ Premix 50 mls @ 12.5 mls/hr IV ONETIME ONE Stop: 10/21/18 18:06 Last Admin: 10/21/18 14:30 Dose: 12.5 mls/hr Dextrose/Sodium Chloride (Dextrose 5%-1/2 Ns) 1,000 mls @ 75 mls/hr IV ASDIRECTED MILADYS Last Admin: 10/21/18 17:54 Dose: 75 mls/hr Sodium Chloride (Normal Saline) 1,000 mls @ 75 mls/hr IV ASDIRECTED MIL[facility] Piperacillin Sod/Tazobactam (Sod 4.5 gm/ Sodium Chloride) 100 mls @ 200 mls/hr IV ONETIME ONE Stop: 10/22/18 15:59 Last Admin: 10/22/18 16:56 Dose: 200 mls/hr Piperacillin Sod/Tazobactam (Sod 4.5 gm/ Sodium Chloride) 100 mls @ 25 mls/hr IV Q8H MILADYS Piperacillin Sod/Tazobactam (Sod 4.5 gm/ Sodium Chloride) 100 mls @ 25 mls/hr IV Q8H [facility] Last Admin: 10/23/18 11:39 Dose: Not Given Furosemide 100 mg/ Sodium (Chloride) 100 mls @ 4 mls/hr IV TITRATE MILADYS; Protocol Last Infusion: 10/23/18 18:57 Dose: 0 mls/hr Lisinopril (Prinivil) 20 mg PO BEDTIME MILADYS Lisinopril (Prinivil) 20 mg PO BEDTIME [facility]ADYS Loperamide HCl (Imodium) 4 mg PO NOW STA Stop: 10/21/18 10:56 Last Admin: 10/21/18 11:15 Dose: 4 mg Methylprednisolone Sodium Succinate (Solu-Medrol) 40 mg IVPUSH ONETIME ONE Stop: 10/23/18 23:01 Last Admin: 10/23/18 23:23 Dose: 40 mg Nifedipine (Procardia Xl) 60 mg PO DAILY [facility] Last Admin: 10/21/18 09:38 Dose: 60 mg Rosuvastatin 20mg (TabOwn Med) 1 each PO BEDTIME [facility], [facility] Last Admin: 10/21/18 20:17 Dose: 1 each Quinapril 40mg Tab (Own Med) 1 each PO BEDTIME MILADYS Last Admin: 10/21/18 20:16 Dose: 1 each Nifedipine 60mg Tab (ErOwn Med) 1 each PO DAILY [facility]YS Ondansetron HCl (Zofran) 4 mg IVPUSH ONETIME ONE Stop: 10/20/18 07:48 Last Admin: 10/20/18 07:59 Dose: 4 mg Rosuvastatin Calcium (Crestor) 20 mg PO BEDTIME MILADYS - Exam Quality Assessment: Supplemental Oxygen General: Alert, Oriented, Cooperative, No Acute Distress HEENT: Pupils Equal, Pupils Reactive, EOMI, Mucous Membr. Moist/[place] Neck: Supple, Trachea Midline, Other (no accessory muscle use) Lungs: Crackles (mild at the bases) Cardiovascular: Irregular Rhythm GI/Abdominal Exam: Normal Bowel Sounds, Soft, No Distention (Male) Exam: Other (indwelling pleural effusion) Back Exam: Normal Inspection, Decreased Range of Motion Extremities: Normal Inspection, Normal Range of Motion, Non-Tender, Normal Capillary Refill, Pedal Edema Peripheral Pulses: 1+: Posterior Tibial (R), 2+: Posterior Tibial (L), Dorsalis Pedis (L), Dorsalis Pedis (R) Skin: Warm, Dry, Intact Neurological: No New Focal Deficit. No: Normal Gait, Sensation Intact Psy/Mental Status: Alert, Normal Affect, Normal Mood - Problem List Review Problem List Initiated/Reviewed/Updated: Yes - My Orders Last 24 Hours: My Active Orders 10/23/18 20:45 Sodium Chloride 0.9% [Normal Saline] 1,000 ml IV ASDIRECTED 10/23/18 22:59 RT Aerosol Therapy [RC] ASDIRECTED Albuterol/Ipratropium [DuoNeb 3.0-0.5 MG/3 ML] 3 ml NEB Q4H PRN 10/24/18 09:00 methylPREDNISolone Sod Succ [Solu-MEDROL] 40 mg IVPUSH Q12H 10/24/18 09:45 Sodium Chloride 0.9% [Normal Saline] 1,000 ml IV ASDIRECTED 10/24/18 10:14 Consult to Occupational Therapy [OT Evaluation and Treatment] [CONS] Routine Consult to Physical Therapy [PT Evaluation and Treatment] [CONS] Routine - Plan Plan:: Assessment/Plan: Acute: Acute Kidney Injury - Acute on chronic renal insufficiency/medical renal disease - Worsening renal function: Cr 1.6-->2.1-->3.3-->4.2 - Urine output is good - Renal U/S report reads cysts on each kidneys - Hold lasix drip; start low dose Zaroxolyn Aspiration PNA/Mild Bibasilar Consolidation with Small Bilateral Pleural Effusions - CT scan confirmed consolidation and findings of pleural effusions - Continue IV Zosyn for pharmacy to dose - Afebrile w/o resolved leukocytosis - CRP is 17.9-->13.7 - [employer] evaluation: mild alyssia-pharyngeal dysphagia - Aspiration precautions - IS/Acapella/RT HF with Preserved EF - BNP 6158 (was 126 earlier in month)-->6652-->5739 - Echo 10/23/2018: LVEF of 55-60%, No RWMA, Atrial Fibrillation/Flutter, Moderately Dilated Atrium and Mod-Severely Elevated Right Ventricular Systolic Pressure of 51.0 mmHg. 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 Continue to monitor. Given 1 Imodium. - Check CMP, CBC, and mag in the morning - Negative C. Diff - Stool WBC-non (not infectious) - He is now tolerating current diet - Stool studies S/p Hypernatremia - Switch IV fluids to D5 half-normal saline at 75 mL an hour and encourage by mouth intake - 2/2 IV Zosyn plus NS received S/p Respiratory failure - Has baseline pulmonary insufficiency - 2L NC--> 12 LNC last night and now on BIPAP 13/01; continue current treatment - He is now down to 6L NC - ABG as indicated Chronic: Impaired Vision HTN HLD Constipation Prostate Disorder Plan: He is better clinically Routine AM Labs RT/PT/OT to assess and treat GI and DVT PPx SW/CM for d/c planning Encourage to use IS/FV Bedside activity as tolerated since he has baseline gait instability and peripheral neuropathy Updated and daughter at [facility] consultation room about his most recent diagnoses, morning labs, tests result and treatment plan. LOS > 96 hrs due to slow response to treatment. Patient may require greater than the facilities that are available to him at his current home.
[2018-10-24] MEDS ORDERED: Metolazone 2.5 MG Tab PO ONE (15:00)
[2018-10-24] MEDS: Rosuvastatin 10 MG Tab PO SCH (20:14)
[2018-10-24] MEDS: Doxazosin 2 MG Tab PO SCH (20:15)
[2018-10-24] MEDS: Temazepam 15 MG Cap PO PRN (20:15)
[2018-10-24] MEDS ORDERED: Polyethylene Glycol 3350 Powder 17 GM Packet PO SCH (20:30)
[2018-10-25] MEDS: Piperacillin/Tazobactam 4.5 GM in Sodium Chloride 0.9% 100 ML IV SCH ×2 (00:24→13:53)
[2018-10-25] MEDS: Albuterol/Ipratropium 3.0-0.5 MG/3 ML Neb Soln NEB SCH ×4 (05:22→21:06)
[2018-10-25] MEDS ORDERED: Polyethylene Glycol 3350 Powder 17 GM Packet PO PRN (05:48)
[2018-10-25] MEDS ORDERED: Metolazone 2.5 MG Tab PO SCH (06:00)
[2018-10-25] MEDS: NIFEdipine 30 MG Tab.ER PO SCH (09:23)
[2018-10-25] MEDS: Sodium Chloride 0.9% 10 ML Syringe FLUSH PRN (09:24)
[2018-10-25] MEDS: methylPREDNISolone Sodium Succinate 40 MG/1 ML SDV IVPUSH SCH ×2 (09:24→20:00)
--- NOTE | 2018-10-25 10:16 | PCM.PN ---
- General Info Date of Service: 10/25/18 Admission Dx/Problem (Free Text): Admission Diagnosis/Problem Admission Diagnosis/Problem Dehydration Subjective Update: Follow Up Functional Status: Reports: Pain Controlled, Tolerating Diet, Ambulating, Urinating - Review of Systems General: Denies: Fever, Weakness, Fatigue, Malaise, Chills HEENT: Reports: No Symptoms Pulmonary: Denies: Shortness of Breath Cardiovascular: Denies: Chest Pain, Dyspnea on Exertion, Lightheadedness Gastrointestinal: Denies: Abdominal Pain, Nausea, Vomiting Genitourinary: Reports: Retention Musculoskeletal: Reports: No Symptoms Skin: Denies: Cyanosis, Mottled, Pallor, Bruising Neurological: Reports: Pre-Existing Deficit, Difficulty Walking, Weakness, Gait Disturbance. Denies: Confusion Psychiatric: Denies: Depression, Anxiety, Agitation, Hallucinations Systems Review Comment:: No overnight or acute issues. He rested well last night. He feels good this AM and he is now back to his baseline supplemental O2 at 2L NC. He has been using his respiratory devices and doing PT/OT exercises at bedside as directed. - Patient Data Vitals - Most Recent: Last Vital Signs Temp 37.2 C 10/25/18 08:00 Pulse 92 10/25/18 08:00 Resp 19 10/25/18 08:00 BP 107/49 L 10/25/18 09:23 Pulse Ox 91 L 10/25/18 09:00 Weight - Most Recent: 101.877 kg I&O - Last 24 Hours: Intake & Output 10/24/18 10/25/18 10/25/18 22:59 06:59 14:59 Intake Total 1310 100 Output Total 328 410 125 Balance 982 -310 -125 Lab Results Last 24 Hours: Laboratory Results - last 24 hr 10/25/18 10/25/18 10/25/18 Range/Units 05:45 05:45 05:45 WBC 5.53 (4.23-9.07) K/mm3 RBC 3.68 L (4.63-6.08) M/mm3 Hgb 11.1 L (13.7-17.5) gm/L Hct 34.3 L (40.1-51.0) % MCV 93.2 H (79.0-92.2) fl MCH 30.2 (25.7-32.2) pg MCHC 32.4 (32.2-35.5) g/dl RDW Std Deviation 43.3 (35.1-43.9) fL Plt Count 123 L (163-337) K/mm3 MPV 10.7 (9.4-12.3) fl Neut % (Auto) 86.0 H (34.0-67.9) % Lymph % (Auto) 8.1 L (21.8-53.1) % Delta % (Auto) 5.2 L (5.3-12.2) % Eos % (Auto) 0 L (0.8-7.0) Baso % (Auto) 0.0 L (0.1-1.2) % Neut # (Auto) 4.75 (1.78-5.38) K/mm3 Lymph # (Auto) 0.45 L (1.32-3.57) K/mm3 Delta # (Auto) 0.29 L (0.30-0.82) K/mm3 Eos # (Auto) 0.00 L (0.04-0.54) K/mm3 Baso # (Auto) 0.00 L (0.01-0.08) K/mm3 Manual Slide Review Normal smear Sodium 142 (136-145) mEq/L Potassium 4.2 (3.5-5.1) mEq/L Chloride 105 (98-107) mEq/L Carbon Dioxide 24 (21-32) mEq/L Anion Gap 17.2 H (5-15) BUN 95 H (7-18) mg/dL Creatinine 5.0 H (0.7-1.3) mg/dL Est Cr Clr Drug Dosing 11.49 mL/min Estimated GFR (MDRD) 11 (>60) mL/min BUN/Creatinine Ratio 19.0 H (14-18) Glucose 181 H (83-115) mg/dL Calcium 8.3 L (8.5-10.1) mg/dL Magnesium 2.2 (1.8-2.4) mg/dl C-Reactive Protein 6.6 H* (<1.0) mg/dL NT-Pro-B Natriuret Pep 7825 H (0-450) pg/mL [facility] Results Last 24 Hours: Microbiology 10/23/18 03:55 Stool Culture - Preliminary Stool / Feces Shiga Toxin I - Final NEGATIVE FOR SHIGA TOXIN 1 Shiga Toxin II - Final NEGATIVE FOR SHIGA TOXIN 2 Med Orders - Current: Current Medications Acetaminophen (Tylenol) 650 mg PO Q4H PRN PRN Reason: Pain (Mild 1-3)/fever Last Admin: 10/24/18 20:15 Dose: 650 mg Albuterol/Ipratropium (Duoneb 3.0-0.5 Mg/3 Ml) 3 ml NEB QIDRT [facility] Last Admin: 10/25/18 09:00 Dose: 3 ml Albuterol/Ipratropium (Duoneb 3.0-0.5 Mg/3 Ml) 3 ml NEB Q4H PRN PRN Reason: Wheezing Doxazosin Mesylate (Cardura) 1 mg PO BEDTIME [facility] Last Admin: 10/24/18 20:15 Dose: 1 mg Piperacillin Sod/Tazobactam (Sod 4.5 gm/ Sodium Chloride) 100 mls @ 25 mls/hr IV Q12H [facility] Last Admin: 10/25/18 00:24 Dose: 25 mls/hr Methylprednisolone Sodium Succinate (Solu-Medrol) 40 mg IVPUSH Q12H [facility] Stop: 10/25/18 21:01 Last Admin: 10/25/18 09:24 Dose: 40 mg Nifedipine (Procardia Xl) 60 mg PO DAILY [facility] Last Admin: 10/25/18 09:23 Dose: 60 mg Melatonin 5 Mg Tab (Own Med) 5 mg PO BEDTIME PRN PRN Reason: Insomnia Last Admin: 10/21/18 20:17 Dose: 5 mg Ondansetron HCl (Zofran Odt) 4 mg PO Q6H PRN PRN Reason: nausea, able to take PO Polyethylene Glycol (Miralax) 17 gm PO DAILY PRN PRN Reason: Constipation Rosuvastatin Calcium (Crestor) 20 mg PO BEDTIME [facility] Last Admin: 10/24/18 20:14 Dose: 20 mg Sodium Chloride (Saline Flush) 10 ml FLUSH ASDIRECTED PRN PRN Reason: Keep Vein Open Last Admin: 10/25/18 09:24 Dose: 10 ml Temazepam (Restoril) 15 mg PO BEDTIME PRN PRN Reason: Insomnia Last Admin: 10/24/18 20:15 Dose: 15 mg Discontinued Medications Calcium Carbonate/Glycine (Tums) 500 mg PO Q2HR ONE Stop: 10/22/18 00:17 Last Admin: 10/22/18 00:22 Dose: 500 mg Furosemide (Lasix) 40 mg PO DAILY [facility] Last Admin: 10/22/18 09:30 Dose: 40 mg Furosemide (Lasix) 40 mg IVPUSH DAILY [facility] Last Admin: 10/22/18 16:53 Dose: 40 mg Sodium Chloride (Normal Saline) 1,000 mls @ 1,000 mls/hr IV .BOLUS [facility] Last Admin: 10/20/18 07:59 Dose: 1,000 mls/hr Sodium Chloride (Normal Saline) 1,000 mls @ 100 mls/hr IV ASDIRECTED [facility] Last Admin: 10/21/18 05:51 Dose: 100 mls/hr Magnesium Sulfate 4 gm/ Premix 50 mls @ 12.5 mls/hr IV ONETIME ONE Stop: 10/21/18 18:06 Last Admin: 10/21/18 14:30 Dose: 12.5 mls/hr Dextrose/Sodium Chloride (Dextrose 5%-1/2 Ns) 1,000 mls @ 75 mls/hr IV ASDIRECTED [facility] Last Admin: 10/21/18 17:54 Dose: 75 mls/hr Sodium Chloride (Normal Saline) 1,000 mls @ 75 mls/hr IV ASDIRECTED [facility] Piperacillin Sod/Tazobactam (Sod 4.5 gm/ Sodium Chloride) 100 mls @ 200 mls/hr IV ONETIME ONE Stop: 10/22/18 15:59 Last Admin: 10/22/18 16:56 Dose: 200 mls/hr Piperacillin Sod/Tazobactam (Sod 4.5 gm/ Sodium Chloride) 100 mls @ 25 mls/hr IV Q8H [facility] Piperacillin Sod/Tazobactam (Sod 4.5 gm/ Sodium Chloride) 100 mls @ 25 mls/hr IV Q8H [facility] Last Admin: 10/23/18 11:39 Dose: Not Given Furosemide 100 mg/ Sodium (Chloride) 100 mls @ 4 mls/hr IV TITRATE [facility]; Protocol Last Infusion: 10/23/18 18:57 Dose: 0 mls/hr Sodium Chloride (Normal Saline) 1,000 mls @ 50 mls/hr IV ASDIRECTED [facility] Last Infusion: 10/24/18 09:38 Dose: 25 mls/hr Sodium Chloride (Normal Saline) 1,000 mls @ 25 mls/hr IV ASDIRECTED [facility] Lisinopril (Prinivil) 20 mg PO BEDTIME [facility] Lisinopril (Prinivil) 20 mg PO BEDTIME [facility] Loperamide HCl (Imodium) 4 mg PO NOW STA Stop: 10/21/18 10:56 Last Admin: 10/21/18 11:15 Dose: 4 mg Methylprednisolone Sodium Succinate (Solu-Medrol) 40 mg IVPUSH ONETIME ONE Stop: 10/23/18 23:01 Last Admin: 10/23/18 23:23 Dose: 40 mg Metolazone (Zaroxolyn) 2.5 mg PO BIDDIURETIC [facility] Last Admin: 10/25/18 05:47 Dose: 2.5 mg Metolazone (Zaroxolyn) 2.5 mg PO ONETIME ONE Stop: 10/24/18 15:01 Last Admin: 10/24/18 16:57 Dose: 2.5 mg Nifedipine (Procardia Xl) 60 mg PO DAILY [facility] Last Admin: 10/21/18 09:38 Dose: 60 mg Rosuvastatin 20mg (TabOwn Med) 1 each PO BEDTIME [facility] Last Admin: 10/21/18 20:17 Dose: 1 each Quinapril 40mg Tab (Own Med) 1 each PO BEDTIME [facility] Last Admin: 10/21/18 20:16 Dose: 1 each Nifedipine 60mg Tab (ErOwn Med) 1 each PO DAILY [facility] Ondansetron HCl (Zofran) 4 mg IVPUSH ONETIME ONE Stop: 10/20/18 07:48 Last Admin: 10/20/18 07:59 Dose: 4 mg Polyethylene Glycol (Miralax) 17 gm PO DAILY [facility] Last Admin: 10/24/18 20:27 Dose: 17 gm Rosuvastatin Calcium (Crestor) 20 mg PO BEDTIME [facility] - Exam Quality Assessment: Supplemental Oxygen General: Alert, Oriented, Cooperative, No Acute Distress HEENT: Pupils Equal, Pupils Reactive, EOMI, Mucous Membr. Moist/[place] Neck: Supple Lungs: Normal Respiratory Effort, Decreased Breath Sounds, Crackles (at the bases) Cardiovascular: Irregular Rhythm GI/Abdominal Exam: Normal Bowel Sounds, Soft, Non-Tender, No Organomegaly, No Distention, No Abnormal Bruit (Male) Exam: Deferred Back Exam: Normal Inspection, Decreased Range of Motion Extremities: Normal Inspection, Non-Tender, Pedal Edema (mild), Limited Range of Motion Peripheral Pulses: 1+: Posterior Tibial (R), Dorsalis Pedis (R), 2+: Posterior Tibial (L), Dorsalis Pedis (L) Skin: Warm, Dry, Intact Neurological: No New Focal Deficit (limited but grossly intact). No: Normal Gait, Sensation Intact Psy/Mental Status: Alert, Normal Affect, Normal Mood - Problem List Review Problem List Initiated/Reviewed/Updated: Yes - My Orders Last 24 Hours: My Active Orders 10/24/18 10:14 Consult to Occupational Therapy [OT Evaluation and Treatment] [CONS] Routine Consult to Physical Therapy [PT Evaluation and Treatment] [CONS] Routine 10/24/18 14:37 EKG 12 Lead [EKG Documentation Completion] [RC] ROUTINE 10/25/18 05:48 Polyethylene Glycol 3350 [MiraLAX] 17 gm PO DAILY PRN - Plan Plan:: Assessment/Plan: Acute: Acute Kidney Injury - Acute on chronic renal insufficiency/medical renal disease - Worsening renal function: Cr 1.6-->2.1-->3.3-->4.2-->5.0 - Urine output remains good despite worsening Cr level - Renal U/S report reads cysts on each kidneys - All diuretics were held Aspiration PNA/Mild Bibasilar Consolidation with Small Bilateral Pleural Effusions - CT scan confirmed consolidation and findings of pleural effusions - Continue IV Zosyn for pharmacy to dose - Afebrile w/o resolved leukocytosis - CRP is 17.9-->13.7-->6.6 - [employer]GER [employer] evaluation: mild alyssia-pharyngeal dysphagia - Aspiration precautions - IS/Acapella/RT - Repeat CXR in AM HF with Preserved EF - BNP 6158 (was 126 earlier in month)-->6652-->5739-->7825 - Echo 10/23/2018: LVEF of 55-60%, No RWMA, Atrial Fibrillation/Flutter, Moderately Dilated Atrium and Mod-Severely Elevated Right Ventricular Systolic Pressure of 51.0 mmHg. Moderate Left Pleural Effusion - EKG shows sinus rhythm with a HR of 84 - Hold Lasix dose and will repeat labs Generalized Weakness, Improved - Acute on chronic - Has baseline peripheral neuropathy and gait abnormality Inactive: 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 Continue to monitor. Given 1 Imodium. - Check CMP, CBC, and mag in the morning - Negative C. Diff - Stool WBC-non (not infectious) - He is now tolerating current diet - Stool studies S/p Hypernatremia - Switch IV fluids to D5 half-normal saline at 75 mL an hour and encourage by mouth intake - 2/2 IV Zosyn plus NS received S/p Respiratory failure - Has baseline pulmonary insufficiency - 2L NC--> 12 LNC last night and now on BIPAP 13/01; continue current treatment - He is now down to 6L NC - ABG as indicated Chronic: Impaired Vision HTN HLD Constipation Prostate Disorder Plan: He looks clinically better despite having not so good looking labs. He is now down to his baseline 2L NC satin at 89-93%. Routine AM Labs RT/PT/OT to assess and treat GI and DVT PPx SW/CM for d/c planning Encourage to use IS/FV Updated and daughter at [facility] consultation room about his most recent diagnoses, morning labs, tests result and treatment plan. Possible discharge to [place] in AM
[2018-10-25] MEDS ORDERED: Lactulose Soln 10 GM/15 ML 30 ML UD Cup PO ONE (14:21)
[2018-10-25] MEDS ORDERED: Bisacodyl 10 MG Supp RECTAL ONE (14:22)
[2018-10-25] MEDS ORDERED: Metoclopramide 10 MG/2 ML SDV IVPUSH ONE (14:23)
[2018-10-25] MEDS: Lactulose Soln 10 GM/15 ML 30 ML UD Cup PO SCH (20:00)
[2018-10-25] MEDS: Rosuvastatin 10 MG Tab PO SCH (20:01)
[2018-10-25] MEDS: Acetaminophen 325 MG Tab PO PRN (20:01)
[2018-10-25] MEDS: Temazepam 15 MG Cap PO PRN (20:01)
[2018-10-25] MEDS: Doxazosin 2 MG Tab PO SCH (20:02)
[2018-10-26] MEDS: Albuterol/Ipratropium 3.0-0.5 MG/3 ML Neb Soln NEB SCH ×4 (06:58→20:05)
[2018-10-26] MEDS: NIFEdipine 30 MG Tab.ER PO SCH (08:34)
[2018-10-26] MEDS: Lactulose Soln 10 GM/15 ML 30 ML UD Cup PO SCH ×2 (08:34→20:49)
[2018-10-26] MEDS: Bisacodyl 10 MG Supp RECTAL SCH (08:35)
--- NOTE | 2018-10-26 09:01 | CR ---
Chest: Portable view of the chest was obtained. Comparison: Prior chest x-ray of 10/24/18. Thick area of atelectasis is seen within the right lung base. Small pleural effusions, slight blunting of the costophrenic angles. Upper lungs are clear. Heart size and mediastinum are within normal limits for portable technique. Impression: 1. Thick area of atelectasis within the right lung base. 2. Minimal pleural effusions. Diagnostic code #3
--- NOTE | 2018-10-26 10:58 | PCM.PN ---
- General Info Date of Service: 10/26/18 Admission Dx/Problem (Free Text): Admission Diagnosis/Problem Admission Diagnosis/Problem Dehydration Subjective Update: Follow Up Functional Status: Reports: Pain Controlled, Tolerating Diet, Ambulating, Urinating. Denies: New Symptoms - Review of Systems General: Denies: Fever, Chills HEENT: Reports: No Symptoms Pulmonary: Reports: Shortness of Breath Cardiovascular: Denies: Chest Pain, Dyspnea on Exertion, Lightheadedness Gastrointestinal: Denies: Abdominal Pain, Nausea, Vomiting Skin: Denies: Cyanosis, Mottled, Pallor, Diaphoresis, Bruising Neurological: Reports: Weakness, Gait Disturbance. Denies: Confusion Psychiatric: Denies: Anxiety, Agitation, Hallucinations Systems Review Comment:: No significant overnight or acute issues. He rested well at night with help of sleeping pills. His O2 sat drops last night so he requires higher O2 while asleep. He is afebrile w/o leukocytosis. His CRP is now down to 4.3. His Cr is now at 5.3 but his electrolytes are normal. He no complaints this AM. He continues to do bedside activities and respiratory exercises. - Patient Data Vitals - Most Recent: Last Vital Signs Temp 36.9 C 10/26/18 07:59 Pulse 93 10/26/18 07:59 Resp 16 10/26/18 07:59 BP 160/69 H 10/26/18 08:34 Pulse Ox 92 L 10/26/18 10:02 Weight - Most Recent: 102.965 kg I&O - Last 24 Hours: Intake & Output 10/25/18 10/26/18 10/26/18 22:59 06:59 14:59 Intake Total 300 400 0 Output Total 320 515 210 Balance -20 -115 -210 Lab Results Last 24 Hours: Laboratory Results - last 24 hr 10/26/18 10/26/18 Range/Units 05:45 05:45 WBC 7.74 (4.23-9.07) K/mm3 RBC 3.92 L (4.63-6.08) M/mm3 Hgb 11.8 L (13.7-17.5) gm/L Hct 36.7 L (40.1-51.0) % MCV 93.6 H (79.0-92.2) fl MCH 30.1 (25.7-32.2) pg MCHC 32.2 (32.2-35.5) g/dl RDW Std Deviation 44.0 H (35.1-43.9) fL Plt Count 175 (163-337) K/mm3 MPV 10.3 (9.4-12.3) fl Neut % (Auto) 83.1 H (34.0-67.9) % Lymph % (Auto) 6.1 L (21.8-53.1) % [place] % (Auto) 10.2 (5.3-12.2) % Eos % (Auto) 0 L (0.8-7.0) Baso % (Auto) 0.0 L (0.1-1.2) % Neut # (Auto) 6.43 H (1.78-5.38) K/mm3 Lymph # (Auto) 0.47 L (1.32-3.57) K/mm3 [place] # (Auto) 0.79 (0.30-0.82) K/mm3 Eos # (Auto) 0.00 L (0.04-0.54) K/mm3 Baso # (Auto) 0.00 L (0.01-0.08) K/mm3 Manual Slide Review Abnormal smear Sodium 141 (136-145) mEq/L Potassium 4.7 (3.5-5.1) mEq/L Chloride 105 (98-107) mEq/L Carbon Dioxide 26 (21-32) mEq/L Anion Gap 14.7 (5-15) BUN 110 H (7-18) mg/dL Creatinine 5.3 H (0.7-1.3) mg/dL Est Cr Clr Drug Dosing 10.84 mL/min Estimated GFR (MDRD) 10 (>60) mL/min BUN/Creatinine Ratio 20.8 H (14-18) Glucose 188 H (83-115) mg/dL Calcium 8.3 L (8.5-10.1) mg/dL Magnesium 2.3 (1.8-2.4) mg/dl C-Reactive Protein 4.3 H* (<1.0) mg/dL [facility] Results Last 24 Hours: Microbiology 10/23/18 03:55 Stool Culture - Final Stool / Feces Shiga Toxin I - Final NEGATIVE FOR SHIGA TOXIN 1 Shiga Toxin II - Final NEGATIVE FOR SHIGA TOXIN 2 Med Orders - Current: Current Medications Acetaminophen (Tylenol) 650 mg PO Q4H PRN PRN Reason: Pain (Mild 1-3)/fever Last Admin: 10/25/18 20:01 Dose: 650 mg Albuterol/Ipratropium (Duoneb 3.0-0.5 Mg/3 Ml) 3 ml NEB QIDRT [facility] Last Admin: 10/26/18 10:02 Dose: 3 ml Albuterol/Ipratropium (Duoneb 3.0-0.5 Mg/3 Ml) 3 ml NEB Q4H PRN PRN Reason: Wheezing Bisacodyl (Dulcolax) 10 mg RECTAL DAILY [facility] Stop: 10/27/18 09:01 Last Admin: 10/26/18 08:35 Dose: 10 mg Doxazosin Mesylate (Cardura) 1 mg PO BEDTIME [facility] Last Admin: 10/25/18 20:02 Dose: 1 mg Lactulose (Cephulac) 30 gm PO BID [facility] Last Admin: 10/26/18 08:34 Dose: 30 gm Nifedipine (Procardia Xl) 60 mg PO DAILY [facility] Last Admin: 10/26/18 08:34 Dose: 60 mg Melatonin 5 Mg Tab (Own Med) 5 mg PO BEDTIME PRN PRN Reason: Insomnia Last Admin: 10/21/18 20:17 Dose: 5 mg Ondansetron HCl (Zofran Odt) 4 mg PO Q6H PRN PRN Reason: nausea, able to take PO Polyethylene Glycol (Miralax) 17 gm PO DAILY PRN PRN Reason: Constipation Rosuvastatin Calcium (Crestor) 20 mg PO BEDTIME [facility] Last Admin: 10/25/18 20:01 Dose: 20 mg Sodium Chloride (Saline Flush) 10 ml FLUSH ASDIRECTED PRN PRN Reason: Keep Vein Open Last Admin: 10/25/18 09:24 Dose: 10 ml Temazepam (Restoril) 15 mg PO BEDTIME PRN PRN Reason: Insomnia Last Admin: 10/25/18 20:01 Dose: 15 mg Discontinued Medications Bisacodyl (Dulcolax) 10 mg RECTAL ONETIME ONE Stop: 10/25/18 14:23 Last Admin: 10/25/18 14:36 Dose: 10 mg Calcium Carbonate/Glycine (Tums) 500 mg PO Q2HR ONE Stop: 10/22/18 00:17 Last Admin: 10/22/18 00:22 Dose: 500 mg Furosemide (Lasix) 40 mg PO DAILY [facility] Last Admin: 10/22/18 09:30 Dose: 40 mg Furosemide (Lasix) 40 mg IVPUSH DAILY [facility] Last Admin: 10/22/18 16:53 Dose: 40 mg Sodium Chloride (Normal Saline) 1,000 mls @ 1,000 mls/hr IV .BOLUS [facility] Last Admin: 10/20/18 07:59 Dose: 1,000 mls/hr Sodium Chloride (Normal Saline) 1,000 mls @ 100 mls/hr IV ASDIRECTED [facility] Last Admin: 10/21/18 05:51 Dose: 100 mls/hr Magnesium Sulfate 4 gm/ Premix 50 mls @ 12.5 mls/hr IV ONETIME ONE Stop: 10/21/18 18:06 Last Admin: 10/21/18 14:30 Dose: 12.5 mls/hr Dextrose/Sodium Chloride (Dextrose 5%-1/2 Ns) 1,000 mls @ 75 mls/hr IV ASDIRECTED [facility] Last Admin: 10/21/18 17:54 Dose: 75 mls/hr Sodium Chloride (Normal Saline) 1,000 mls @ 75 mls/hr IV ASDIRECTED [facility] Piperacillin Sod/Tazobactam (Sod 4.5 gm/ Sodium Chloride) 100 mls @ 200 mls/hr IV ONETIME ONE Stop: 10/22/18 15:59 Last Admin: 10/22/18 16:56 Dose: 200 mls/hr Piperacillin Sod/Tazobactam (Sod 4.5 gm/ Sodium Chloride) 100 mls @ 25 mls/hr IV Q8H [facility] Piperacillin Sod/Tazobactam (Sod 4.5 gm/ Sodium Chloride) 100 mls @ 25 mls/hr IV Q8H [facility] Last Admin: 10/23/18 11:39 Dose: Not Given Furosemide 100 mg/ Sodium (Chloride) 100 mls @ 4 mls/hr IV TITRATE [facility]; Protocol Last Infusion: 10/23/18 18:57 Dose: 0 mls/hr Piperacillin Sod/Tazobactam (Sod 4.5 gm/ Sodium Chloride) 100 mls @ 25 mls/hr IV Q12H [facility] Last Admin: 10/25/18 13:53 Dose: 25 mls/hr Sodium Chloride (Normal Saline) 1,000 mls @ 50 mls/hr IV ASDIRECTED [facility] Last Infusion: 10/24/18 09:38 Dose: 25 mls/hr Sodium Chloride (Normal Saline) 1,000 mls @ 25 mls/hr IV ASDIRECTED [facility] Lactulose (Cephulac) 20 gm PO ONETIME ONE Stop: 10/25/18 14:22 Last Admin: 10/25/18 14:35 Dose: 20 gm Lisinopril (Prinivil) 20 mg PO BEDTIME [facility] Lisinopril (Prinivil) 20 mg PO BEDTIME [facility] Loperamide HCl (Imodium) 4 mg PO NOW STA Stop: 10/21/18 10:56 Last Admin: 10/21/18 11:15 Dose: 4 mg Methylprednisolone Sodium Succinate (Solu-Medrol) 40 mg IVPUSH ONETIME ONE Stop: 10/23/18 23:01 Last Admin: 10/23/18 23:23 Dose: 40 mg Methylprednisolone Sodium Succinate (Solu-Medrol) 40 mg IVPUSH Q12H [facility] Stop: 10/25/18 21:01 Last Admin: 10/25/18 20:00 Dose: 40 mg Metoclopramide HCl (Reglan) 5 mg IVPUSH ONETIME ONE Stop: 10/25/18 14:24 Last Admin: 10/25/18 14:35 Dose: 5 mg Metolazone (Zaroxolyn) 2.5 mg PO BIDDIURETIC [facility] Last Admin: 10/25/18 05:47 Dose: 2.5 mg Metolazone (Zaroxolyn) 2.5 mg PO ONETIME ONE Stop: 10/24/18 15:01 Last Admin: 10/24/18 16:57 Dose: 2.5 mg Nifedipine (Procardia Xl) 60 mg PO DAILY [facility] Last Admin: 10/21/18 09:38 Dose: 60 mg Rosuvastatin 20mg (TabOwn Med) 1 each PO BEDTIME [facility] Last Admin: 10/21/18 20:17 Dose: 1 each Quinapril 40mg Tab (Own Med) 1 each PO BEDTIME [facility] Last Admin: 10/21/18 20:16 Dose: 1 each Nifedipine 60mg Tab ([facility]) 1 each PO DAILY [facility] Ondansetron HCl (Zofran) 4 mg IVPUSH ONETIME ONE Stop: 10/20/18 07:48 Last Admin: 10/20/18 07:59 Dose: 4 mg Polyethylene Glycol (Miralax) 17 gm PO DAILY [facility] Last Admin: 10/24/18 20:27 Dose: 17 gm Rosuvastatin Calcium (Crestor) 20 mg PO BEDTIME [facility] - Exam Quality Assessment: Supplemental Oxygen General: Alert, Oriented, Cooperative HEENT: Pupils Equal, Pupils Reactive, EOMI, Mucous Membr. Moist/[place] Neck: Supple Lungs: Normal Respiratory Effort, Decreased Breath Sounds, Crackles Cardiovascular: Regular Rate, Regular Rhythm, Murmurs GI/Abdominal Exam: Normal Bowel Sounds, Soft, No Organomegaly, No Distention, No Abnormal Bruit (Male) Exam: Other (indwelling villalobos catheter) Back Exam: Normal Inspection, Decreased Range of Motion Extremities: Normal Inspection, Normal Range of Motion, Non-Tender, No Pedal Edema, Normal Capillary Refill Peripheral Pulses: 2+: Dorsalis Pedis (L), Dorsalis Pedis (R) Skin: Warm, Dry, Intact Neurological: No New Focal Deficit (limited but grossly intact). No: Normal Gait, Sensation Intact Psy/Mental Status: Alert, Normal Affect, Normal Mood - Problem List & Annotations (1) Acute kidney injury SNOMED Code(s): 13957676 Code(s): N17.9 - ACUTE KIDNEY FAILURE, UNSPECIFIED Status: Acute Current Visit: Yes (2) Mild bibasilar atelectasis SNOMED Code(s): 97158206 Code(s): J98.11 - ATELECTASIS Status: Acute Current Visit: Yes (3) Heart failure SNOMED Code(s): 11742982 Code(s): I50.9 - HEART FAILURE, UNSPECIFIED Status: Acute Current Visit: Yes Qualifiers: Heart failure type: diastolic Heart failure chronicity: acute Qualified Code(s): I50.31 - Acute diastolic (congestive) heart failure (4) Generalized weakness SNOMED Code(s): 05416120 Code(s): R53.1 - WEAKNESS Status: Acute Current Visit: Yes (5) Pulmonary fibrosis SNOMED Code(s): 78055450 Code(s): J84.10 - PULMONARY FIBROSIS, UNSPECIFIED Status: Acute Current Visit: No (6) Hypernatremia SNOMED Code(s): 109553278 Code(s): E87.0 - HYPEROSMOLALITY AND HYPERNATREMIA Status: Resolved Current Visit: Yes (7) Respiratory failure SNOMED Code(s): 269511104 Code(s): J96.90 - RESPIRATORY FAILURE, UNSP, UNSP W HYPOXIA OR HYPERCAPNIA Status: Resolved Current Visit: Yes Qualifiers: Chronicity: acute Respiratory failure complication: hypoxia Qualified Code(s): J96.01 - Acute respiratory failure with hypoxia - Problem List Review Problem List Initiated/Reviewed/Updated: Yes - My Orders Last 24 Hours: My Active Orders 10/25/18 13:47 Patient Status [ADT] Routine 10/25/18 21:00 Lactulose [Cephulac] 30 gm PO BID 10/26/18 09:00 Bisacodyl [Dulcolax] 10 mg RECTAL DAILY 10/26/18 09:46 Ready for Discharge [RC] PER UNIT ROUTINE 10/26/18 10:57 Urinary Catheter Removal [RC] Per Unit Routine - Plan Plan:: Assessment/Plan: Acute: Acute Kidney Injury - Iatrogenic - Acute on chronic renal insufficiency/medical renal disease - Worsening renal function: Cr 1.6-->2.1-->3.3-->4.2-->5.0-->5.3 - Urine output remains good despite worsening Cr level - Renal U/S report reads cysts on each kidneys - All diuretics were held Aspiration PNA/Mild Bibasilar Consolidation with Small Bilateral Pleural Effusions, Continues to Improve - CT scan confirmed consolidation and findings of pleural effusions - Continue IV Zosyn for pharmacy to dose - Afebrile w/o resolved leukocytosis - CRP is 17.9-->13.7-->6.6-->4.3 - [employer] evaluation: mild alyssia-pharyngeal dysphagia - Aspiration precautions - IS/Acapella/RT - Repeat CXR today: thick areas of atelectasis within the right lung base , minimal pleural effusion HF with Preserved EF - BNP 6158 (was 126 earlier in month)-->6652-->5739-->7825 - Echo 10/23/2018: LVEF of 55-60%, No RWMA, Atrial Fibrillation/Flutter, Moderately Dilated Atrium and Mod-Severely Elevated Right Ventricular Systolic Pressure of 51.0 mmHg. 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 Continue to monitor. Given 1 Imodium. - Check CMP, CBC, and mag in the morning - Negative C. Diff - Stool WBC-non (not infectious) - He is now tolerating current diet - Stool studies S/p Hypernatremia - Switch IV fluids to D5 half-normal saline at 75 mL an hour and encourage by mouth intake - 2/2 IV Zosyn plus NS received S/p Respiratory failure - Has baseline pulmonary insufficiency - 2L NC--> 12 LNC last night and now on BIPAP 13/01; continue current treatment - He is now down to 6L NC - ABG as indicated Chronic: Impaired Vision HTN HLD Constipation Prostate Disorder Plan: He remains clinically stable Routine AM Labs RT/PT/OT to assess and treat GI and DVT PPx SW/CM for d/c planning Encourage to use IS/FV and to continue bedside physical activity Spoke to Dr. Liz about his discharge care plan Possible discharge Monday
[2018-10-26] MEDS: Acetaminophen 325 MG Tab PO PRN (14:02)
[2018-10-26] MEDS ORDERED: LORazepam 2 MG/ML SDV IVPUSH PRN (18:35)
[2018-10-26] MEDS ORDERED: Ibuprofen 400 MG Tab PO PRN (19:54)
[2018-10-26] MEDS: Rosuvastatin 10 MG Tab PO SCH (20:46)
[2018-10-26] MEDS: Temazepam 15 MG Cap PO PRN (20:47)
[2018-10-26] MEDS: Doxazosin 2 MG Tab PO SCH (20:48)
[2018-10-27] MEDS: Albuterol/Ipratropium 3.0-0.5 MG/3 ML Neb Soln NEB SCH ×4 (06:15→20:34)
--- NOTE | 2018-10-27 07:09 | PCM.PN ---
- General Info Date of Service: 10/27/18 Admission Dx/Problem (Free Text): Admission Diagnosis/Problem Admission Diagnosis/Problem Dehydration Subjective Update: Follow Up Functional Status: Reports: Pain Controlled, Tolerating Diet, Ambulating, Urinating. Denies: New Symptoms - Review of Systems General: Reports: Other (somnolent/sedated). Denies: Fever, Chills Gastrointestinal: Denies: Abdominal Pain, Nausea, Vomiting Genitourinary: Reports: No Symptoms Musculoskeletal: Reports: No Symptoms Skin: Denies: Cyanosis Systems Review Comment:: Patient is lethargic and does not respond to verbal calls except for sternal rub. He partially opens his eyes but would not follow commands. He had an uneventful night. He was pretty much on 3L NC sating anywhere bet 89-94%. His HR however was noted in 120-130s when I found him early this morning. His ABG was markedly acidotic. Patient only received his home night sleeping of Restoril and a small dose of Motrin 400 mg x1. No narcotics, anticholinergic or antimuscarinic agents. - Patient Data Vitals - Most Recent: Last Vital Signs Temp 36.4 C 10/27/18 03:00 Pulse 90 10/27/18 03:00 Resp 20 10/27/18 03:00 BP 148/67 H 10/27/18 03:00 Pulse Ox 94 L 10/27/18 06:15 Weight - Most Recent: 104.508 kg I&O - Last 24 Hours: Intake & Output 10/26/18 10/27/18 10/27/18 22:59 06:59 14:59 Intake Total 500 300 Balance 500 300 Lab Results Last 24 Hours: Laboratory Results - last 24 hr 10/26/18 Range/Units 05:45 Manual Slide Review Abnormal smear [place] Results Last 24 Hours: Microbiology 10/23/18 03:55 Stool Culture - Final Stool / Feces Shiga Toxin I - Final NEGATIVE FOR SHIGA TOXIN 1 Shiga Toxin II - Final NEGATIVE FOR SHIGA TOXIN 2 Med Orders - Current: Current Medications Acetaminophen (Tylenol) 650 mg PO Q4H PRN PRN Reason: Pain (Mild 1-3)/fever Last Admin: 10/26/18 14:02 Dose: 650 mg Albuterol/Ipratropium (Duoneb 3.0-0.5 Mg/3 Ml) 3 ml NEB QIDRT [facility] Last Admin: 10/27/18 06:15 Dose: 3 ml Albuterol/Ipratropium (Duoneb 3.0-0.5 Mg/3 Ml) 3 ml NEB Q4H PRN PRN Reason: Wheezing Bisacodyl (Dulcolax) 10 mg RECTAL DAILY [facility] Stop: 10/27/18 09:01 Last Admin: 10/26/18 08:35 Dose: 10 mg Doxazosin Mesylate (Cardura) 1 mg PO BEDTIME [facility] Last Admin: 10/26/18 20:48 Dose: 1 mg Ibuprofen (Motrin) 400 mg PO Q8H PRN PRN Reason: pain Last Admin: 10/26/18 20:47 Dose: 400 mg Lactulose (Cephulac) 30 gm PO BID [facility] Last Admin: 10/26/18 20:49 Dose: 30 gm Lorazepam (Ativan) 0.25 mg IVPUSH Q4H PRN PRN Reason: Anxiety Nifedipine (Procardia Xl) 60 mg PO DAILY [facility] Last Admin: 10/26/18 08:34 Dose: 60 mg Melatonin 5 Mg Tab (Own Med) 5 mg PO BEDTIME PRN PRN Reason: Insomnia Last Admin: 10/21/18 20:17 Dose: 5 mg Ondansetron HCl (Zofran Odt) 4 mg PO Q6H PRN PRN Reason: nausea, able to take PO Polyethylene Glycol (Miralax) 17 gm PO DAILY PRN PRN Reason: Constipation Rosuvastatin Calcium (Crestor) 20 mg PO BEDTIME [facility] Last Admin: 10/26/18 20:46 Dose: 20 mg Sodium Chloride (Saline Flush) 10 ml FLUSH ASDIRECTED PRN PRN Reason: Keep Vein Open Last Admin: 10/25/18 09:24 Dose: 10 ml Temazepam (Restoril) 15 mg PO BEDTIME PRN PRN Reason: Insomnia Last Admin: 10/26/18 20:47 Dose: 15 mg Discontinued Medications Bisacodyl (Dulcolax) 10 mg RECTAL ONETIME ONE Stop: 10/25/18 14:23 Last Admin: 10/25/18 14:36 Dose: 10 mg Calcium Carbonate/Glycine (Tums) 500 mg PO Q2HR ONE Stop: 10/22/18 00:17 Last Admin: 10/22/18 00:22 Dose: 500 mg Furosemide (Lasix) 40 mg PO DAILY [facility] Last Admin: 10/22/18 09:30 Dose: 40 mg Furosemide (Lasix) 40 mg IVPUSH DAILY [facility] Last Admin: 10/22/18 16:53 Dose: 40 mg Sodium Chloride (Normal Saline) 1,000 mls @ 1,000 mls/hr IV .BOLUS [facility] Last Admin: 10/20/18 07:59 Dose: 1,000 mls/hr Sodium Chloride (Normal Saline) 1,000 mls @ 100 mls/hr IV ASDIRECTED [facility] Last Admin: 10/21/18 05:51 Dose: 100 mls/hr Magnesium Sulfate 4 gm/ Premix 50 mls @ 12.5 mls/hr IV ONETIME ONE Stop: 10/21/18 18:06 Last Admin: 10/21/18 14:30 Dose: 12.5 mls/hr Dextrose/Sodium Chloride (Dextrose 5%-1/2 Ns) 1,000 mls @ 75 mls/hr IV ASDIRECTED [facility] Last Admin: 10/21/18 17:54 Dose: 75 mls/hr Sodium Chloride (Normal Saline) 1,000 mls @ 75 mls/hr IV ASDIRECTED [facility] Piperacillin Sod/Tazobactam (Sod 4.5 gm/ Sodium Chloride) 100 mls @ 200 mls/hr IV ONETIME ONE Stop: 10/22/18 15:59 Last Admin: 10/22/18 16:56 Dose: 200 mls/hr Piperacillin Sod/Tazobactam (Sod 4.5 gm/ Sodium Chloride) 100 mls @ 25 mls/hr IV Q8H [facility] Piperacillin Sod/Tazobactam (Sod 4.5 gm/ Sodium Chloride) 100 mls @ 25 mls/hr IV Q8H [facility] Last Admin: 10/23/18 11:39 Dose: Not Given Furosemide 100 mg/ Sodium (Chloride) 100 mls @ 4 mls/hr IV TITRATE [facility]; Protocol Last Infusion: 10/23/18 18:57 Dose: 0 mls/hr Piperacillin Sod/Tazobactam (Sod 4.5 gm/ Sodium Chloride) 100 mls @ 25 mls/hr IV Q12H [facility] Last Admin: 10/25/18 13:53 Dose: 25 mls/hr Sodium Chloride (Normal Saline) 1,000 mls @ 50 mls/hr IV ASDIRECTED [facility] Last Infusion: 10/24/18 09:38 Dose: 25 mls/hr Sodium Chloride (Normal Saline) 1,000 mls @ 25 mls/hr IV ASDIRECTED [facility] Lactulose (Cephulac) 20 gm PO ONETIME ONE Stop: 10/25/18 14:22 Last Admin: 10/25/18 14:35 Dose: 20 gm Lisinopril (Prinivil) 20 mg PO BEDTIME [facility] Lisinopril (Prinivil) 20 mg PO BEDTIME [facility] Loperamide HCl (Imodium) 4 mg PO NOW STA Stop: 10/21/18 10:56 Last Admin: 10/21/18 11:15 Dose: 4 mg Methylprednisolone Sodium Succinate (Solu-Medrol) 40 mg IVPUSH ONETIME ONE Stop: 10/23/18 23:01 Last Admin: 10/23/18 23:23 Dose: 40 mg Methylprednisolone Sodium Succinate (Solu-Medrol) 40 mg IVPUSH Q12H [facility] Stop: 10/25/18 21:01 Last Admin: 10/25/18 20:00 Dose: 40 mg Metoclopramide HCl (Reglan) 5 mg IVPUSH ONETIME ONE Stop: 10/25/18 14:24 Last Admin: 10/25/18 14:35 Dose: 5 mg Metolazone (Zaroxolyn) 2.5 mg PO BIDDIURETIC [facility] Last Admin: 10/25/18 05:47 Dose: 2.5 mg Metolazone (Zaroxolyn) 2.5 mg PO ONETIME ONE Stop: 10/24/18 15:01 Last Admin: 10/24/18 16:57 Dose: 2.5 mg Nifedipine (Procardia Xl) 60 mg PO DAILY [facility] Last Admin: 10/21/18 09:38 Dose: 60 mg Rosuvastatin 20mg (TabOwn Med) 1 each PO BEDTIME [facility] Last Admin: 10/21/18 20:17 Dose: 1 each Quinapril 40mg Tab (Own Med) 1 each PO BEDTIME [facility] Last Admin: 10/21/18 20:16 Dose: 1 each Nifedipine 60mg Tab (ErOwn Med) 1 each PO DAILY [facility] Ondansetron HCl (Zofran) 4 mg IVPUSH ONETIME ONE Stop: 10/20/18 07:48 Last Admin: 10/20/18 07:59 Dose: 4 mg Polyethylene Glycol (Miralax) 17 gm PO DAILY [facility] Last Admin: 10/24/18 20:27 Dose: 17 gm Rosuvastatin Calcium (Crestor) 20 mg PO BEDTIME [facility] - Exam Quality Assessment: Supplemental Oxygen General: Sedated, Lethargic, Other HEENT: Pupils Equal, Pupils Reactive Neck: Supple Lungs: Normal Respiratory Effort, Decreased Breath Sounds Cardiovascular: Tachycardia GI/Abdominal Exam: Normal Bowel Sounds, Soft, Non-Tender, No Organomegaly, No Distention, No Abnormal Bruit (Male) Exam: Deferred Back Exam: Other (deferred) Extremities: Normal Inspection, Non-Tender, No Pedal Edema, Normal Capillary Refill Peripheral Pulses: 2+: Dorsalis Pedis (L), Dorsalis Pedis (R) Skin: Warm, Dry, Intact Neurological: Other (deferred: Not appropriate) Psy/Mental Status: Other (Sedated) Physical Findings Comments:: Physical exam very limited. - Problem List & Annotations (1) Acute kidney injury SNOMED Code(s): 04831969 Code(s): N17.9 - ACUTE KIDNEY FAILURE, UNSPECIFIED Status: Acute Current Visit: Yes (2) Mild bibasilar atelectasis SNOMED Code(s): 23792346 Code(s): J98.11 - ATELECTASIS Status: Acute Current Visit: Yes (3) Heart failure SNOMED Code(s): 47939731 Code(s): I50.9 - HEART FAILURE, UNSPECIFIED Status: Acute Current Visit: Yes Qualifiers: Heart failure type: diastolic Heart failure chronicity: acute Qualified Code(s): I50.31 - Acute diastolic (congestive) heart failure (4) Generalized weakness SNOMED Code(s): 86963346 Code(s): R53.1 - WEAKNESS Status: Acute Current Visit: Yes (5) Pulmonary fibrosis SNOMED Code(s): 05210953 Code(s): J84.10 - PULMONARY FIBROSIS, UNSPECIFIED Status: Acute Current Visit: No (6) Hypernatremia SNOMED Code(s): 848914961 Code(s): E87.0 - HYPEROSMOLALITY AND HYPERNATREMIA Status: Resolved Current Visit: Yes (7) Respiratory failure SNOMED Code(s): 050834371 Code(s): J96.90 - RESPIRATORY FAILURE, UNSP, UNSP W HYPOXIA OR HYPERCAPNIA Status: Resolved Current Visit: Yes Qualifiers: Chronicity: acute Respiratory failure complication: hypoxia Qualified Code(s): J96.01 - Acute respiratory failure with hypoxia (8) Pulmonary HTN SNOMED Code(s): 79986800 Code(s): I27.20 - PULMONARY HYPERTENSION, UNSPECIFIED Status: Acute Current Visit: Yes - Problem List Review Problem List Initiated/Reviewed/Updated: Yes - My Orders Last 24 Hours: My Active Orders 10/26/18 09:00 Bisacodyl [Dulcolax] 10 mg RECTAL DAILY 10/26/18 09:46 Ready for Discharge [RC] PER UNIT ROUTINE 10/26/18 10:57 Urinary Catheter Removal [RC] Per Unit Routine 10/26/18 11:47 Consult to Odd Shoe Examiner [CONS] Routine 10/26/18 18:35 LORazepam [Ativan] 0.25 mg IVPUSH Q4H PRN 10/26/18 19:54 Ibuprofen [Motrin] 400 mg PO Q8H PRN - Plan Plan:: Assessment/Plan: Acute: AMS - Severe Acidosis (Hypercapenia and Hypoxia) - Iatrogenic from Restoril (Renal and Pulmonary Insufficiencies) - Medication stayed longer in his system - Reversal agents and BIPAP - Aspiration Precaution Respiratory Acidosis/Respiratory Failure - BIPAP for now; re-addressed code status - Family rescinded code status DNR/DNI - Repeat ABG in 2-3 hrs Acute Kidney Injury, Unchanged - Iatrogenic - Acute on chronic renal insufficiency/medical renal disease - Worsening renal function: Cr 1.6-->5.4 - Urine output remains good despite worsening Cr level; electrolytes are within limits - Renal U/S report reads cysts on each kidneys - All diuretics were held Aspiration PNA/Mild Bibasilar Consolidation with Small Bilateral Pleural Effusions, Continues to Improve - CT scan confirmed consolidation and findings of pleural effusions - Discontinued IV Zosyn for pharmacy to dose - Afebrile w/o resolved leukocytosis - CRP is 17.9-->13.7-->6.6-->4.3 - RECEIVER SETTER evaluation: mild alyssia-pharyngeal dysphagia - Aspiration precautions - IS/Acapella/RT - Repeat CXR today: thick areas of atelectasis within the right lung base , minimal pleural effusion HF with Preserved EF/Volume Overload - BNP 6158 (was 126 earlier in month)-->6652-->5739-->7825 - Echo 10/23/2018: LVEF of 55-60%, No RWMA, Atrial Fibrillation/Flutter, Moderately Dilated Atrium and Mod-Severely Elevated Right Ventricular Systolic Pressure of 51.0 mmHg (Pulmonary HTN). 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 Continue to monitor. Given 1 Imodium. - Check CMP, CBC, and mag in the morning - Negative C. Diff - Stool WBC-non (not infectious) - He is now tolerating current diet - Stool studies S/p Hypernatremia - Switch IV fluids to D5 half-normal saline at 75 mL an hour and encourage by mouth intake - 2/2 IV Zosyn plus NS received S/p Respiratory failure - Has baseline pulmonary insufficiency - 2L NC--> 12 LNC last night and now on BIPAP 13/01; continue current treatment - He is now down to 6L NC - ABG as indicated Chronic: Impaired Vision HTN HLD Constipation Prostate Disorder Plan: This is a sudden turn of events Routine AM Labs RT/PT/OT to assess and treat GI and DVT PPx NPO status Aspiration precautions SW/CM for d/c planning Encourage to use IS/FV and to continue bedside physical activity Possible discharge Monday Prognosis guarded Updated family about his clinical status and treatment plan at this point
[2018-10-27] MEDS ORDERED: Flumazenil 0.1 MG/ML 5 ML MDV IVPUSH ONE ×3 (07:46→15:54)
[2018-10-27] MEDS: Metoprolol Tartrate 5 MG/5 ML SDV IVPUSH PRN (08:04)
[2018-10-27] MEDS: Modafinil 200 MG Tab PO SCH (10:11)
[2018-10-27] MEDS: NIFEdipine 30 MG Tab.ER PO SCH (10:11)
[2018-10-27] MEDS: Lactulose Soln 10 GM/15 ML 30 ML UD Cup PO SCH ×2 (10:11→20:58)
[2018-10-27] MEDS: Bisacodyl 10 MG Supp RECTAL SCH ×2 (10:21→10:35)
[2018-10-27] MEDS ORDERED: Diltiazem 50 MG/10 ML SDV IVPUSH ONE (11:38)
[2018-10-27] MEDS ORDERED: Ibuprofen 200 MG Tab PO PRN (11:48)
--- NOTE | 2018-10-27 12:47 | PCM.SN ---
- Free Text/Narrative Note: His repeat ABG is slightly better but remains acidotic. Discussed plans for more invasive airway since BIPAP is not cutting it. Family refused it and rescinded his code status to DNR/DNI. So far he had gotten 2 small doses of reversal agent for his Restoril. His heart rate is not quite controlled after he was given a one time dose of IVP Metoprolol. An EKG obtained following this tachycardia revealed an abnormal atrial rhythm (a-flutter); this was mentioned (afib/flutter) as a finding on his most recent 2D-echo report. Patient was not able to take his CCB (Nifedipine ) due to AMS. However he quickly respond to a low dose Cardizem IVP push and went back sinus rhythm via telemetry. So far, he is a little bit more responsive. He is able to make grimace, open his eyes with verbal calls and follow simple commands. We will keep on BIPAP for now and repeat ABG later this evening. Updated his family about his clinical status. His overall prognosis at this point is guarded.
[2018-10-27] MEDS: Rosuvastatin 10 MG Tab PO SCH (20:56)
[2018-10-27] MEDS: Doxazosin 2 MG Tab PO SCH (20:56)
[2018-10-27] MEDS: Apixaban 2.5 MG Tab PO SCH (20:57)
[2018-10-28] MEDS: Albuterol/Ipratropium 3.0-0.5 MG/3 ML Neb Soln NEB SCH ×4 (06:23→21:13)
--- NOTE | 2018-10-28 09:19 | PCM.PN ---
- General Info Date of Service: 10/28/18 Admission Dx/Problem (Free Text): Admission Diagnosis/Problem Admission Diagnosis/Problem Dehydration Subjective Update: Follow Up Functional Status: Reports: Pain Controlled, Tolerating Diet, Urinating. Denies : New Symptoms - Review of Systems General: Reports: Weakness, Fatigue. Denies: Fever, Chills HEENT: Reports: No Symptoms Pulmonary: Denies: Shortness of Breath Cardiovascular: Denies: Chest Pain, Dyspnea on Exertion, Lightheadedness Gastrointestinal: Denies: Abdominal Pain, Nausea, Vomiting Genitourinary: Reports: No Symptoms Musculoskeletal: Reports: No Symptoms Skin: Denies: Cyanosis, Mottled, Bruising Neurological: Reports: Difficulty Walking, Weakness, Gait Disturbance. Denies: Confusion Psychiatric: Denies: Depression, Anxiety, Agitation, Hallucinations Systems Review Comment:: He is totally a different person this AM. His ABG is much better and his renal slightly improved. He took a shower this morning and started doing his respiratory exercises and bedside activity. His output remains good. He alert, awake and reasonable. - Patient Data Vitals - Most Recent: Last Vital Signs Temp 36.4 C 10/28/18 04:00 Pulse 86 10/28/18 04:00 Resp 13 10/28/18 04:00 BP 130/62 10/28/18 04:00 Pulse Ox 94 L 10/28/18 08:50 Weight - Most Recent: 109.679 kg I&O - Last 24 Hours: Intake & Output 10/27/18 10/28/18 10/28/18 22:59 06:59 14:59 Intake Total 20 Output Total 500 Balance 20 -500 Lab Results Last 24 Hours: Laboratory Results - last 24 hr 10/27/18 10/27/18 10/27/18 Range/Units 11:40 11:40 11:45 WBC (4.23-9.07) K/mm3 RBC (4.63-6.08) M/mm3 Hgb (13.7-17.5) gm/L Hct (40.1-51.0) % MCV (79.0-92.2) fl MCH (25.7-32.2) pg MCHC (32.2-35.5) g/dl RDW Std Deviation (35.1-43.9) fL Plt Count (163-337) K/mm3 MPV (9.4-12.3) fl Neut % (Auto) (34.0-67.9) % Lymph % (Auto) (21.8-53.1) % Collin % (Auto) (5.3-12.2) % Eos % (Auto) (0.8-7.0) Baso % (Auto) (0.1-1.2) % Neut # (Auto) (1.78-5.38) K/mm3 Lymph # (Auto) (1.32-3.57) K/mm3 Collin # (Auto) (0.30-0.82) K/mm3 Eos # (Auto) (0.04-0.54) K/mm3 Baso # (Auto) (0.01-0.08) K/mm3 Manual Slide Review Puncture Site Lt radial ABG pH 7.19 L* (7.35-7.45) ABG pCO2 69.6 H (35.0-45.0) mmHg ABG pO2 73.0 L (80.0-100.0) mmHg ABG HCO3 25.6 (22.0-26.0) meq/L ABG O2 Saturation 92.3 L (96.0-97.0) % ABG Base Excess -3.6 L (-2-2.0) Edson Test Positive A-a Gradient 198 mmHg O2 Delivery Device Bipap Oxygen Flow Rate 9.0 Sodium (136-145) mEq/L Potassium (3.5-5.1) mEq/L Chloride (98-107) mEq/L Carbon Dioxide (21-32) mEq/L Anion Gap (5-15) BUN (7-18) mg/dL Creatinine (0.7-1.3) mg/dL Est Cr Clr Drug Dosing mL/min Estimated GFR (MDRD) (>60) mL/min BUN/Creatinine Ratio (14-18) Glucose (83-115) mg/dL Calcium (8.5-10.1) mg/dL Magnesium (1.8-2.4) mg/dl CK-MB (CK-2) 1.8 (0-3.6) ng/ml Troponin I 0.261 H* (0.00-0.056) ng/mL 10/27/18 10/27/18 10/28/18 Range/Units 18:00 18:05 02:40 WBC 7.01 (4.23-9.07) K/mm3 RBC 4.01 L (4.63-6.08) M/mm3 Hgb 12.1 L (13.7-17.5) gm/L Hct 38.1 L (40.1-51.0) % MCV 95.0 H (79.0-92.2) fl MCH 30.2 (25.7-32.2) pg MCHC 31.8 L (32.2-35.5) g/dl RDW Std Deviation 45.0 H (35.1-43.9) fL Plt Count 149 L (163-337) K/mm3 MPV 10.3 (9.4-12.3) fl Neut % (Auto) 74.7 H (34.0-67.9) % Lymph % (Auto) 9.3 L (21.8-53.1) % Collin % (Auto) 14.4 H (5.3-12.2) % Eos % (Auto) 0 L (0.8-7.0) Baso % (Auto) 0.0 L (0.1-1.2) % Neut # (Auto) 5.24 (1.78-5.38) K/mm3 Lymph # (Auto) 0.65 L (1.32-3.57) K/mm3 Collin # (Auto) 1.01 H (0.30-0.82) K/mm3 Eos # (Auto) 0.00 L (0.04-0.54) K/mm3 Baso # (Auto) 0.00 L (0.01-0.08) K/mm3 Manual Slide Review Abnormal smear Puncture Site Rt radial ABG pH 7.20 L (7.35-7.45) ABG pCO2 66.3 H (35.0-45.0) mmHg ABG pO2 76.0 L (80.0-100.0) mmHg ABG HCO3 25.0 (22.0-26.0) meq/L ABG O2 Saturation 93.2 L (96.0-97.0) % ABG Base Excess -3.7 L (-2-2.0) Edson Test Positive A-a Gradient 199 mmHg O2 Delivery Device Bipap Oxygen Flow Rate 9.0 Sodium (136-145) mEq/L Potassium (3.5-5.1) mEq/L Chloride (98-107) mEq/L Carbon Dioxide (21-32) mEq/L Anion Gap (5-15) BUN (7-18) mg/dL Creatinine (0.7-1.3) mg/dL Est Cr Clr Drug Dosing mL/min Estimated GFR (MDRD) (>60) mL/min BUN/Creatinine Ratio (14-18) Glucose (83-115) mg/dL Calcium (8.5-10.1) mg/dL Magnesium (1.8-2.4) mg/dl CK-MB (CK-2) 1.5 (0-3.6) ng/ml Troponin I 0.250 H* (0.00-0.056) ng/mL 10/28/18 10/28/18 10/28/18 Range/Units 02:40 02:40 02:40 WBC (4.23-9.07) K/mm3 RBC (4.63-6.08) M/mm3 Hgb (13.7-17.5) gm/L Hct (40.1-51.0) % MCV (79.0-92.2) fl MCH (25.7-32.2) pg MCHC (32.2-35.5) g/dl RDW Std Deviation (35.1-43.9) fL Plt Count (163-337) K/mm3 MPV (9.4-12.3) fl Neut % (Auto) (34.0-67.9) % Lymph % (Auto) (21.8-53.1) % Collin % (Auto) (5.3-12.2) % Eos % (Auto) (0.8-7.0) Baso % (Auto) (0.1-1.2) % Neut # (Auto) (1.78-5.38) K/mm3 Lymph # (Auto) (1.32-3.57) K/mm3 Collin # (Auto) (0.30-0.82) K/mm3 Eos # (Auto) (0.04-0.54) K/mm3 Baso # (Auto) (0.01-0.08) K/mm3 Manual Slide Review Puncture Site ABG pH (7.35-7.45) ABG pCO2 (35.0-45.0) mmHg ABG pO2 (80.0-100.0) mmHg ABG HCO3 (22.0-26.0) meq/L ABG O2 Saturation (96.0-97.0) % ABG Base Excess (-2-2.0) Edson Test A-a Gradient mmHg O2 Delivery Device Oxygen Flow Rate Sodium 147 H (136-145) mEq/L Potassium 4.4 (3.5-5.1) mEq/L Chloride 111 H (98-107) mEq/L Carbon Dioxide 26 (21-32) mEq/L Anion Gap 14.4 (5-15) BUN 120 H (7-18) mg/dL Creatinine 5.1 H (0.7-1.3) mg/dL Est Cr Clr Drug Dosing 11.31 mL/min Estimated GFR (MDRD) 11 (>60) mL/min BUN/Creatinine Ratio 23.5 H (14-18) Glucose 148 H (83-115) mg/dL Calcium 8.3 L (8.5-10.1) mg/dL Magnesium 2.4 (1.8-2.4) mg/dl CK-MB (CK-2) 1.5 (0-3.6) ng/ml Troponin I 0.255 H* (0.00-0.056) ng/mL Med Orders - Current: Current Medications Acetaminophen (Tylenol) 650 mg PO Q4H PRN PRN Reason: Pain (Mild 1-3)/fever Last Admin: 10/26/18 14:02 Dose: 650 mg Albuterol/Ipratropium (Duoneb 3.0-0.5 Mg/3 Ml) 3 ml NEB QIDRT [facility] Last Admin: 10/28/18 06:23 Dose: 3 ml Albuterol/Ipratropium (Duoneb 3.0-0.5 Mg/3 Ml) 3 ml NEB Q4H PRN PRN Reason: Wheezing Apixaban (Eliquis) 2.5 mg PO BID [facility] Last Admin: 10/27/18 20:57 Dose: 2.5 mg Doxazosin Mesylate (Cardura) 1 mg PO BEDTIME [facility] Last Admin: 10/27/18 20:56 Dose: 1 mg Ibuprofen (Motrin) 200 mg PO Q8H PRN PRN Reason: pain Lactulose (Cephulac) 30 gm PO BID [facility] Last Admin: 10/27/18 20:58 Dose: Not Given Lorazepam (Ativan) 0.25 mg IVPUSH Q4H PRN PRN Reason: Anxiety Metoprolol Tartrate (Lopressor) 5 mg IVPUSH Q4H PRN PRN Reason: Tachycardia Last Admin: 10/27/18 08:04 Dose: 5 mg Modafinil (Provigil) 100 mg PO DAILY [facility] Last Admin: 10/27/18 10:11 Dose: Not Given Nifedipine (Procardia Xl) 60 mg PO DAILY [facility] Last Admin: 10/27/18 10:11 Dose: Not Given Melatonin 5 Mg Tab (Own Med) 5 mg PO BEDTIME PRN PRN Reason: Insomnia Last Admin: 10/21/18 20:17 Dose: 5 mg Ondansetron HCl (Zofran Odt) 4 mg PO Q6H PRN PRN Reason: nausea, able to take PO Polyethylene Glycol (Miralax) 17 gm PO DAILY PRN PRN Reason: Constipation Rosuvastatin Calcium (Crestor) 20 mg PO BEDTIME [facility] Last Admin: 10/27/18 20:56 Dose: 20 mg Sodium Chloride (Saline Flush) 10 ml FLUSH ASDIRECTED PRN PRN Reason: Keep Vein Open Last Admin: 10/25/18 09:24 Dose: 10 ml Temazepam (Restoril) 15 mg PO BEDTIME PRN PRN Reason: Insomnia Last Admin: 10/26/18 20:47 Dose: 15 mg Discontinued Medications Bisacodyl (Dulcolax) 10 mg RECTAL DAILY [facility] Stop: 10/27/18 09:01 Last Admin: 10/27/18 10:35 Dose: Not Given Bisacodyl (Dulcolax) 10 mg RECTAL ONETIME ONE Stop: 10/25/18 14:23 Last Admin: 10/25/18 14:36 Dose: 10 mg Calcium Carbonate/Glycine (Tums) 500 mg PO Q2HR ONE Stop: 10/22/18 00:17 Last Admin: 10/22/18 00:22 Dose: 500 mg Diltiazem HCl (Cardizem) 10 mg IVPUSH ONETIME ONE Stop: 10/27/18 11:39 Last Admin: 10/27/18 12:29 Dose: 10 mg Flumazenil (Romazicon) 0.2 mg IVPUSH ONETIME ONE Stop: 10/27/18 07:47 Last Admin: 10/27/18 08:08 Dose: 0.2 mg Flumazenil (Romazicon) 0.2 mg IVPUSH ONETIME ONE Stop: 10/27/18 09:35 Last Admin: 10/27/18 10:22 Dose: 0.2 mg Flumazenil (Romazicon) 0.2 mg IVPUSH ONETIME ONE Stop: 10/27/18 15:55 Last Admin: 10/27/18 16:22 Dose: 0.2 mg Furosemide (Lasix) 40 mg PO DAILY [facility] Last Admin: 10/22/18 09:30 Dose: 40 mg Furosemide (Lasix) 40 mg IVPUSH DAILY [facility] Last Admin: 10/22/18 16:53 Dose: 40 mg Sodium Chloride (Normal Saline) 1,000 mls @ 1,000 mls/hr IV .BOLUS [facility] Last Admin: 10/20/18 07:59 Dose: 1,000 mls/hr Sodium Chloride (Normal Saline) 1,000 mls @ 100 mls/hr IV ASDIRECTED [facility] Last Admin: 10/21/18 05:51 Dose: 100 mls/hr Magnesium Sulfate 4 gm/ Premix 50 mls @ 12.5 mls/hr IV ONETIME ONE Stop: 10/21/18 18:06 Last Admin: 10/21/18 14:30 Dose: 12.5 mls/hr Dextrose/Sodium Chloride (Dextrose 5%-1/2 Ns) 1,000 mls @ 75 mls/hr IV ASDIRECTED [facility] Last Admin: 10/21/18 17:54 Dose: 75 mls/hr Sodium Chloride (Normal Saline) 1,000 mls @ 75 mls/hr IV ASDIRECTED [facility] Piperacillin Sod/Tazobactam (Sod 4.5 gm/ Sodium Chloride) 100 mls @ 200 mls/hr IV ONETIME ONE Stop: 10/22/18 15:59 Last Admin: 10/22/18 16:56 Dose: 200 mls/hr Piperacillin Sod/Tazobactam (Sod 4.5 gm/ Sodium Chloride) 100 mls @ 25 mls/hr IV Q8H [facility] Piperacillin Sod/Tazobactam (Sod 4.5 gm/ Sodium Chloride) 100 mls @ 25 mls/hr IV Q8H [facility] Last Admin: 10/23/18 11:39 Dose: Not Given Furosemide 100 mg/ Sodium (Chloride) 100 mls @ 4 mls/hr IV TITRATE [facility]; Protocol Last Infusion: 10/23/18 18:57 Dose: 0 mls/hr Piperacillin Sod/Tazobactam (Sod 4.5 gm/ Sodium Chloride) 100 mls @ 25 mls/hr IV Q12H [facility] Last Admin: 10/25/18 13:53 Dose: 25 mls/hr Sodium Chloride (Normal Saline) 1,000 mls @ 50 mls/hr IV ASDIRECTED [facility] Last Infusion: 10/24/18 09:38 Dose: 25 mls/hr Sodium Chloride (Normal Saline) 1,000 mls @ 25 mls/hr IV ASDIRECTED [facility] Ibuprofen (Motrin) 400 mg PO Q8H PRN PRN Reason: pain Last Admin: 10/26/18 20:47 Dose: 400 mg Lactulose (Cephulac) 20 gm PO ONETIME ONE Stop: 10/25/18 14:22 Last Admin: 10/25/18 14:35 Dose: 20 gm Lisinopril (Prinivil) 20 mg PO BEDTIME [facility] Lisinopril (Prinivil) 20 mg PO BEDTIME [facility] Loperamide HCl (Imodium) 4 mg PO NOW STA Stop: 10/21/18 10:56 Last Admin: 10/21/18 11:15 Dose: 4 mg Methylprednisolone Sodium Succinate (Solu-Medrol) 40 mg IVPUSH ONETIME ONE Stop: 10/23/18 23:01 Last Admin: 10/23/18 23:23 Dose: 40 mg Methylprednisolone Sodium Succinate (Solu-Medrol) 40 mg IVPUSH Q12H [facility] Stop: 10/25/18 21:01 Last Admin: 10/25/18 20:00 Dose: 40 mg Metoclopramide HCl (Reglan) 5 mg IVPUSH ONETIME ONE Stop: 10/25/18 14:24 Last Admin: 10/25/18 14:35 Dose: 5 mg Metolazone (Zaroxolyn) 2.5 mg PO BIDDIURETIC [facility] Last Admin: 10/25/18 05:47 Dose: 2.5 mg Metolazone (Zaroxolyn) 2.5 mg PO ONETIME ONE Stop: 10/24/18 15:01 Last Admin: 10/24/18 16:57 Dose: 2.5 mg Nifedipine (Procardia Xl) 60 mg PO DAILY [facility] Last Admin: 10/21/18 09:38 Dose: 60 mg Rosuvastatin 20mg (TabOwn Med) 1 each PO BEDTIME [facility] Last Admin: 10/21/18 20:17 Dose: 1 each Quinapril 40mg Tab (Own Med) 1 each PO BEDTIME [facility] Last Admin: 10/21/18 20:16 Dose: 1 each Nifedipine 60mg Tab (ErOwn Med) 1 each PO DAILY [facility] Ondansetron HCl (Zofran) 4 mg IVPUSH ONETIME ONE Stop: 10/20/18 07:48 Last Admin: 10/20/18 07:59 Dose: 4 mg Polyethylene Glycol (Miralax) 17 gm PO DAILY [facility] Last Admin: 10/24/18 20:27 Dose: 17 gm Rosuvastatin Calcium (Crestor) 20 mg PO BEDTIME [facility] - Exam Quality Assessment: Supplemental Oxygen General: Alert, Cooperative, No Acute Distress HEENT: Pupils Equal, Pupils Reactive, Mucous Membr. Moist/[place] Neck: Supple Lungs: Normal Respiratory Effort, Decreased Breath Sounds Cardiovascular: Regular Rate, Regular Rhythm GI/Abdominal Exam: Normal Bowel Sounds, Soft, Non-Tender, No Organomegaly, No Distention, No Abnormal Bruit (Male) Exam: Other (indwelling villalobos catheter) Back Exam: Normal Inspection, Decreased Range of Motion Extremities: Normal Inspection, Non-Tender, No Pedal Edema, Normal Capillary Refill, Limited Range of Motion Peripheral Pulses: 1+: Dorsalis Pedis (L), Dorsalis Pedis (R) Skin: Intact Neurological: No New Focal Deficit (limited exam due to generalized weakness). No: Normal Gait, Sensation Intact Psy/Mental Status: Alert, Normal Mood. No: Normal Affect - Problem List & Annotations (1) Acute kidney injury SNOMED Code(s): 24353753 Code(s): N17.9 - ACUTE KIDNEY FAILURE, UNSPECIFIED Status: Acute Current Visit: Yes (2) Mild bibasilar atelectasis SNOMED Code(s): 91490306 Code(s): J98.11 - ATELECTASIS Status: Acute Current Visit: Yes (3) Heart failure SNOMED Code(s): 01586087 Code(s): I50.9 - HEART FAILURE, UNSPECIFIED Status: Acute Current Visit: Yes Qualifiers: Heart failure type: diastolic Heart failure chronicity: acute Qualified Code(s): I50.31 - Acute diastolic (congestive) heart failure (4) Generalized weakness SNOMED Code(s): 66214395 Code(s): R53.1 - WEAKNESS Status: Acute Current Visit: Yes (5) Pulmonary fibrosis SNOMED Code(s): 55607605 Code(s): J84.10 - PULMONARY FIBROSIS, UNSPECIFIED Status: Acute Current Visit: No (6) Hypernatremia SNOMED Code(s): 856048332 Code(s): E87.0 - HYPEROSMOLALITY AND HYPERNATREMIA Status: Resolved Current Visit: Yes (7) Respiratory failure SNOMED Code(s): 665881198 Code(s): J96.90 - RESPIRATORY FAILURE, UNSP, UNSP W HYPOXIA OR HYPERCAPNIA Status: Resolved Current Visit: Yes Qualifiers: Chronicity: acute Respiratory failure complication: hypoxia Qualified Code(s): J96.01 - Acute respiratory failure with hypoxia (8) Pulmonary HTN SNOMED Code(s): 49104670 Code(s): I27.20 - PULMONARY HYPERTENSION, UNSPECIFIED Status: Acute Current Visit: Yes - Problem List Review Problem List Initiated/Reviewed/Updated: Yes - My Orders Last 24 Hours: My Active Orders 10/27/18 09:00 Modafinil [Provigil] 100 mg PO DAILY 10/27/18 11:26 EKG Documentation Completion [RC] ASDIRECTED EKG 12 Lead [EK] Routine 10/27/18 11:48 Ibuprofen [Motrin] 200 mg PO Q8H PRN 10/27/18 12:06 Resuscitation Status Routine 10/27/18 20:16 Patient Status [ADT] Routine 10/27/18 20:59 Urinary Catheter Assessment [RC] ASDIRECTED 10/27/18 21:00 Insert Villalobos Catheter [Insert Urinary Catheter] [OM.PC] Q24H Apixaban [Eliquis] 2.5 mg PO BID 10/28/18 Breakfast NPO [Nothing Per Oral Diet] [DIET] 10/29/18 05:11 CBC WITH AUTO DIFF [HEME] AM MG [MAGNESIUM] [CHEM] AM 10/30/18 05:11 CBC WITH AUTO DIFF [HEME] AM MG [MAGNESIUM] [CHEM] AM 10/31/18 05:11 CBC WITH AUTO DIFF [HEME] AM MG [MAGNESIUM] [CHEM] AM - Plan Plan:: Assessment/Plan: Acute: Respiratory Acidosis/Respiratory Failure - Improving - Continue BIPAP and Supplemental O2 - Family rescinded code status DNR/DNI - Repeat ABG much improved this AM Acute Kidney Injury - Appears to be starting to improve - Iatrogenic - Acute on chronic renal insufficiency/medical renal disease - Worsening renal function: Cr 1.6-->5.4-->5.1 - Urine output remains good despite worsening Cr level; electrolytes are within limits - Renal U/S report reads cysts on each kidneys - All diuretics were held Aspiration PNA/Mild Bibasilar Consolidation with Small Bilateral Pleural Effusions, Continues to Improve - CT scan confirmed consolidation and findings of pleural effusions - Discontinued IV Zosyn for pharmacy to dose - Afebrile w/o resolved leukocytosis - CRP is 17.9-->13.7-->6.6-->4.3 - [employer] evaluation: mild alyssia-pharyngeal dysphagia - Aspiration precautions - IS/Acapella/RT - Repeat CXR today: thick areas of atelectasis within the right lung base , minimal pleural effusion HF with Preserved EF/Volume Overload - BNP 6158 (was 126 earlier in month)-->6652-->5739-->7825 - Echo 10/23/2018: LVEF of 55-60%, No RWMA, Atrial Fibrillation/Flutter, Moderately Dilated Atrium and Mod-Severely Elevated Right Ventricular Systolic Pressure of 51.0 mmHg (Pulmonary HTN). 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 Continue to monitor. Given 1 Imodium. - Check CMP, CBC, and mag in the morning - Negative C. Diff - Stool WBC-non (not infectious) - He is now tolerating current diet - Stool studies S/p Hypernatremia - Switch IV fluids to D5 half-normal saline at 75 mL an hour and encourage by mouth intake - 2/2 IV Zosyn plus NS received S/p Respiratory failure - Has baseline pulmonary insufficiency - 2L NC--> 12 LNC last night and now on BIPAP 13/01; continue current treatment - He is now down to 6L NC - ABG as indicated S/p AMS - Severe Acidosis (Hypercapenia and Hypoxia) - Iatrogenic from Restoril (Renal and Pulmonary Insufficiencies) - Medication stayed longer in his system - Reversal agents and BIPAP - Aspiration Precaution Chronic: Impaired Vision HTN HLD Constipation Prostate Disorder Plan: He is clinically much better this AM Routine AM Labs RT/PT/OT to assess and treat GI and DVT PPx Swallow eval; if he passes start clear liquid diet then advance as tolerated No NSAIDs, Benzos, and Narcs Aspiration precautions SW/CM for d/c planning Encourage to use IS/FV and to continue bedside physical activity Prognosis remains guarded Updated family about his morning labs, clinical status and treatment plan
[2018-10-28] MEDS: Lactulose Soln 10 GM/15 ML 30 ML UD Cup PO SCH (09:44)
[2018-10-28] MEDS: NIFEdipine 30 MG Tab.ER PO SCH (09:57)
[2018-10-28] MEDS: Apixaban 2.5 MG Tab PO SCH ×2 (09:57→20:25)
[2018-10-28] MEDS: Modafinil 200 MG Tab PO SCH (10:06)
[2018-10-28] MEDS ORDERED: Scopolamine 1.5 MG Transdermal Patch TOP ONE (13:04)
[2018-10-28] MEDS ORDERED: CAFFEINE PO PRN (16:04)
[2018-10-28] MEDS ORDERED: ASPIRIN PO PRN (16:04)
[2018-10-28] MEDS: Metoprolol Tartrate 5 MG/5 ML SDV IVPUSH PRN (18:37)
[2018-10-28] MEDS: Doxazosin 2 MG Tab PO SCH (20:23)
[2018-10-28] MEDS: Acetaminophen 325 MG Tab PO PRN (20:25)
[2018-10-28] MEDS: diphenhydrAMINE 25 MG Cap PO PRN (20:26)
[2018-10-28] MEDS: Rosuvastatin 10 MG Tab PO SCH (20:26)
[2018-10-28] MEDS: CAFFEINE PO SCH (21:10)
[2018-10-28] MEDS: ASPIRIN PO SCH (21:10)
[2018-10-28] MEDS: [UNRECOGNIZED DRUG - OTHER] PO SCH (21:10)
[2018-10-29] MEDS: Albuterol/Ipratropium 3.0-0.5 MG/3 ML Neb Soln NEB SCH ×4 (05:35→21:21)
[2018-10-29] MEDS: Modafinil 200 MG Tab PO SCH (08:17)
[2018-10-29] MEDS: NIFEdipine 30 MG Tab.ER PO SCH (08:18)
[2018-10-29] MEDS: Apixaban 2.5 MG Tab PO SCH ×2 (08:18→20:13)
--- NOTE | 2018-10-29 14:57 | PCM.PN ---
- General Info Date of Service: 10/29/18 Admission Dx/Problem (Free Text): Admission Diagnosis/Problem Admission Diagnosis/Problem Dehydration Subjective Update: Follow Up Functional Status: Reports: Pain Controlled, Tolerating Diet, Urinating. Denies : New Symptoms - Review of Systems General: Reports: Weakness. Denies: Fever, Chills HEENT: Reports: No Symptoms Pulmonary: Reports: Shortness of Breath Cardiovascular: Denies: Chest Pain, Orthopnea Gastrointestinal: Reports: Flatus. Denies: Abdominal Pain, Decreased Appetite, Vomiting Genitourinary: Reports: No Symptoms Musculoskeletal: Reports: No Symptoms Skin: Reports: No Symptoms Neurological: Reports: Pre-Existing Deficit, Difficulty Walking, Weakness. Denies: Confusion Psychiatric: Denies: Anxiety, Agitation Systems Review Comment:: No overnight or acute issues. He rested well last night and continues to do well. His renal function continues to improve. - Patient Data Vitals - Most Recent: Last Vital Signs Temp 36.4 C 10/29/18 11:59 Pulse 73 10/29/18 11:59 Resp 18 10/29/18 11:59 BP 142/59 H 10/29/18 11:59 Pulse Ox 95 10/29/18 11:59 Weight - Most Recent: 109.951 kg I&O - Last 24 Hours: Intake & Output 10/28/18 10/29/18 10/29/18 22:59 06:59 14:59 Intake Total 600 650 540 Output Total 675 770 800 Balance -75 -120 -260 Lab Results Last 24 Hours: Laboratory Results - last 24 hr 10/29/18 10/29/18 10/29/18 Range/Units 04:27 04:27 04:27 WBC 7.38 (4.23-9.07) K/mm3 RBC 3.64 L (4.63-6.08) M/mm3 Hgb 11.1 L (13.7-17.5) gm/L Hct 33.6 L (40.1-51.0) % MCV 92.3 H (79.0-92.2) fl MCH 30.5 (25.7-32.2) pg MCHC 33.0 (32.2-35.5) g/dl RDW Std Deviation 43.4 (35.1-43.9) fL Plt Count 141 L (163-337) K/mm3 MPV 10.5 (9.4-12.3) fl Neut % (Auto) 76.5 H (34.0-67.9) % Lymph % (Auto) 10.4 L (21.8-53.1) % Snyder % (Auto) 11.7 (5.3-12.2) % Eos % (Auto) 0.7 L (0.8-7.0) Baso % (Auto) 0.0 L (0.1-1.2) % Neut # (Auto) 5.65 H (1.78-5.38) K/mm3 Lymph # (Auto) 0.77 L (1.32-3.57) K/mm3 Snyder # (Auto) 0.86 H (0.30-0.82) K/mm3 Eos # (Auto) 0.05 (0.04-0.54) K/mm3 Baso # (Auto) 0.00 L (0.01-0.08) K/mm3 Puncture Site ABG pH (7.35-7.45) ABG pCO2 (35.0-45.0) mmHg ABG pO2 (80.0-100.0) mmHg ABG HCO3 (22.0-26.0) meq/L ABG O2 Saturation (96.0-97.0) % ABG Base Excess (-2-2.0) A-a Gradient mmHg O2 Delivery Device Oxygen Flow Rate Sodium 148 H (136-145) mEq/L Potassium 4.0 (3.5-5.1) mEq/L Chloride 110 H (98-107) mEq/L Carbon Dioxide 28 (21-32) mEq/L Anion Gap 14.0 (5-15) BUN 129 H (7-18) mg/dL Creatinine 4.5 H (0.7-1.3) mg/dL Est Cr Clr Drug Dosing 12.82 mL/min Estimated GFR (MDRD) 12 (>60) mL/min BUN/Creatinine Ratio 28.7 H (14-18) Glucose 170 H (83-115) mg/dL Calcium 8.2 L (8.5-10.1) mg/dL Magnesium 2.2 (1.8-2.4) mg/dl 10/29/18 Range/Units 09:10 WBC (4.23-9.07) K/mm3 RBC (4.63-6.08) M/mm3 Hgb (13.7-17.5) gm/L Hct (40.1-51.0) % MCV (79.0-92.2) fl MCH (25.7-32.2) pg MCHC (32.2-35.5) g/dl RDW Std Deviation (35.1-43.9) fL Plt Count (163-337) K/mm3 MPV (9.4-12.3) fl Neut % (Auto) (34.0-67.9) % Lymph % (Auto) (21.8-53.1) % Snyder % (Auto) (5.3-12.2) % Eos % (Auto) (0.8-7.0) Baso % (Auto) (0.1-1.2) % Neut # (Auto) (1.78-5.38) K/mm3 Lymph # (Auto) (1.32-3.57) K/mm3 Snyder # (Auto) (0.30-0.82) K/mm3 Eos # (Auto) (0.04-0.54) K/mm3 Baso # (Auto) (0.01-0.08) K/mm3 Puncture Site Rt radial ABG pH 7.28 L (7.35-7.45) ABG pCO2 59.1 H (35.0-45.0) mmHg ABG pO2 64.0 L (80.0-100.0) mmHg ABG HCO3 27.0 H (22.0-26.0) meq/L ABG O2 Saturation 89.2 L (96.0-97.0) % ABG Base Excess 0.0 (-2-2.0) A-a Gradient 67 mmHg O2 Delivery Device Nasal cannula Oxygen Flow Rate 3.0 Sodium (136-145) mEq/L Potassium (3.5-5.1) mEq/L Chloride (98-107) mEq/L Carbon Dioxide (21-32) mEq/L Anion Gap (5-15) BUN (7-18) mg/dL Creatinine (0.7-1.3) mg/dL Est Cr Clr Drug Dosing mL/min Estimated GFR (MDRD) (>60) mL/min BUN/Creatinine Ratio (14-18) Glucose (83-115) mg/dL Calcium (8.5-10.1) mg/dL Magnesium (1.8-2.4) mg/dl Med Orders - Current: Current Medications Acetaminophen (Tylenol) 650 mg PO Q4H PRN PRN Reason: Pain (Mild 1-3)/fever Last Admin: 10/26/18 14:02 Dose: 650 mg Acetaminophen (Tylenol) 487.5 mg PO BEDTIME PRN PRN Reason: Insomnia Last Admin: 10/28/18 20:25 Dose: 487.5 mg Albuterol/Ipratropium (Duoneb 3.0-0.5 Mg/3 Ml) 3 ml NEB QIDRT [facility] Last Admin: 10/29/18 11:28 Dose: 3 ml Albuterol/Ipratropium (Duoneb 3.0-0.5 Mg/3 Ml) 3 ml NEB Q4H PRN PRN Reason: Wheezing Apixaban (Eliquis) 2.5 mg PO BID [facility] Last Admin: 10/29/18 08:18 Dose: 2.5 mg Diphenhydramine HCl (Benadryl) 25 mg PO BEDTIME PRN PRN Reason: Insomnia Last Admin: 10/28/18 20:26 Dose: 25 mg Doxazosin Mesylate (Cardura) 1 mg PO BEDTIME [facility] Last Admin: 10/28/18 20:23 Dose: 1 mg Lorazepam (Ativan) 0.25 mg IVPUSH Q4H PRN PRN Reason: Anxiety Metoprolol Tartrate (Lopressor) 5 mg IVPUSH Q4H PRN PRN Reason: Tachycardia Last Admin: 10/28/18 18:37 Dose: 5 mg Miscellaneous Information (Remove Patch) 1 ea TRDERM Q72H [facility] Stop: 10/31/18 13:01 Modafinil (Provigil) 100 mg PO DAILY [facility] Last Admin: 10/29/18 08:17 Dose: 100 mg Nifedipine (Procardia Xl) 60 mg PO DAILY [facility] Last Admin: 10/29/18 08:18 Dose: 60 mg Melatonin 5 Mg Tab (Own Med) 5 mg PO BEDTIME PRN PRN Reason: Insomnia Last Admin: 10/21/18 20:17 Dose: 5 mg Ondansetron HCl (Zofran Odt) 4 mg PO Q6H PRN PRN Reason: nausea, able to take PO Julio C Back And Body (Asa 500mg + Caffeine 32.5mg/Tab) Own Med 0 each PO BEDTIME [facility] Last Admin: 10/28/18 21:10 Dose: Not Given Polyethylene Glycol (Miralax) 17 gm PO DAILY PRN PRN Reason: Constipation Rosuvastatin Calcium (Crestor) 20 mg PO BEDTIME [facility] Last Admin: 10/28/18 20:26 Dose: 20 mg Sodium Chloride (Saline Flush) 10 ml FLUSH ASDIRECTED PRN PRN Reason: Keep Vein Open Last Admin: 10/25/18 09:24 Dose: 10 ml Discontinued Medications Bisacodyl (Dulcolax) 10 mg RECTAL DAILY [facility] Stop: 10/27/18 09:01 Last Admin: 10/27/18 10:35 Dose: Not Given Bisacodyl (Dulcolax) 10 mg RECTAL ONETIME ONE Stop: 10/25/18 14:23 Last Admin: 10/25/18 14:36 Dose: 10 mg Calcium Carbonate/Glycine (Tums) 500 mg PO Q2HR ONE Stop: 10/22/18 00:17 Last Admin: 10/22/18 00:22 Dose: 500 mg Diltiazem HCl (Cardizem) 10 mg IVPUSH ONETIME ONE Stop: 10/27/18 11:39 Last Admin: 10/27/18 12:29 Dose: 10 mg Flumazenil (Romazicon) 0.2 mg IVPUSH ONETIME ONE Stop: 10/27/18 07:47 Last Admin: 10/27/18 08:08 Dose: 0.2 mg Flumazenil (Romazicon) 0.2 mg IVPUSH ONETIME ONE Stop: 10/27/18 09:35 Last Admin: 10/27/18 10:22 Dose: 0.2 mg Flumazenil (Romazicon) 0.2 mg IVPUSH ONETIME ONE Stop: 10/27/18 15:55 Last Admin: 10/27/18 16:22 Dose: 0.2 mg Furosemide (Lasix) 40 mg PO DAILY [facility] Last Admin: 10/22/18 09:30 Dose: 40 mg Furosemide (Lasix) 40 mg IVPUSH DAILY [facility] Last Admin: 10/22/18 16:53 Dose: 40 mg Sodium Chloride (Normal Saline) 1,000 mls @ 1,000 mls/hr IV .BOLUS [facility] Last Admin: 10/20/18 07:59 Dose: 1,000 mls/hr Sodium Chloride (Normal Saline) 1,000 mls @ 100 mls/hr IV ASDIRECTED [facility] Last Admin: 10/21/18 05:51 Dose: 100 mls/hr Magnesium Sulfate 4 gm/ Premix 50 mls @ 12.5 mls/hr IV ONETIME ONE Stop: 10/21/18 18:06 Last Admin: 10/21/18 14:30 Dose: 12.5 mls/hr Dextrose/Sodium Chloride (Dextrose 5%-1/2 Ns) 1,000 mls @ 75 mls/hr IV ASDIRECTED [facility] Last Admin: 10/21/18 17:54 Dose: 75 mls/hr Sodium Chloride (Normal Saline) 1,000 mls @ 75 mls/hr IV ASDIRECTED [facility] Piperacillin Sod/Tazobactam (Sod 4.5 gm/ Sodium Chloride) 100 mls @ 200 mls/hr IV ONETIME ONE Stop: 10/22/18 15:59 Last Admin: 10/22/18 16:56 Dose: 200 mls/hr Piperacillin Sod/Tazobactam (Sod 4.5 gm/ Sodium Chloride) 100 mls @ 25 mls/hr IV Q8H [facility] Piperacillin Sod/Tazobactam (Sod 4.5 gm/ Sodium Chloride) 100 mls @ 25 mls/hr IV Q8H [facility] Last Admin: 10/23/18 11:39 Dose: Not Given Furosemide 100 mg/ Sodium (Chloride) 100 mls @ 4 mls/hr IV TITRATE [facility]; Protocol Last Infusion: 10/23/18 18:57 Dose: 0 mls/hr Piperacillin Sod/Tazobactam (Sod 4.5 gm/ Sodium Chloride) 100 mls @ 25 mls/hr IV Q12H [facility] Last Admin: 10/25/18 13:53 Dose: 25 mls/hr Sodium Chloride (Normal Saline) 1,000 mls @ 50 mls/hr IV ASDIRECTED [facility] Last Infusion: 10/24/18 09:38 Dose: 25 mls/hr Sodium Chloride (Normal Saline) 1,000 mls @ 25 mls/hr IV ASDIRECTED [facility] Ibuprofen (Motrin) 400 mg PO Q8H PRN PRN Reason: pain Last Admin: 10/26/18 20:47 Dose: 400 mg Ibuprofen (Motrin) 200 mg PO Q8H PRN PRN Reason: pain Lactulose (Cephulac) 30 gm PO BID [facility] Last Admin: 10/28/18 09:44 Dose: Not Given Lactulose (Cephulac) 20 gm PO ONETIME ONE Stop: 10/25/18 14:22 Last Admin: 10/25/18 14:35 Dose: 20 gm Lisinopril (Prinivil) 20 mg PO BEDTIME [facility] Lisinopril (Prinivil) 20 mg PO BEDTIME [facility] Loperamide HCl (Imodium) 4 mg PO NOW STA Stop: 10/21/18 10:56 Last Admin: 10/21/18 11:15 Dose: 4 mg Methylprednisolone Sodium Succinate (Solu-Medrol) 40 mg IVPUSH ONETIME ONE Stop: 10/23/18 23:01 Last Admin: 10/23/18 23:23 Dose: 40 mg Methylprednisolone Sodium Succinate (Solu-Medrol) 40 mg IVPUSH Q12H [facility] Stop: 10/25/18 21:01 Last Admin: 10/25/18 20:00 Dose: 40 mg Metoclopramide HCl (Reglan) 5 mg IVPUSH ONETIME ONE Stop: 10/25/18 14:24 Last Admin: 10/25/18 14:35 Dose: 5 mg Metolazone (Zaroxolyn) 2.5 mg PO BIDDIURETIC [facility] Last Admin: 10/25/18 05:47 Dose: 2.5 mg Metolazone (Zaroxolyn) 2.5 mg PO ONETIME ONE Stop: 10/24/18 15:01 Last Admin: 10/24/18 16:57 Dose: 2.5 mg Nifedipine (Procardia Xl) 60 mg PO DAILY [facility] Last Admin: 10/21/18 09:38 Dose: 60 mg Rosuvastatin 20mg (TabOwn Med) 1 each PO BEDTIME [facility] Last Admin: 10/21/18 20:17 Dose: 1 each Quinapril 40mg Tab (Own Med) 1 each PO BEDTIME [facility] Last Admin: 10/21/18 20:16 Dose: 1 each Nifedipine 60mg Tab (ErOwn Med) 1 each PO DAILY [facility] Non-Formulary Medication (Aspirin/Caffeine [Julio C Back-Body 500-32.5 Mg]) 2 each PO BEDTIME PRN PRN Reason: Pain Ondansetron HCl (Zofran) 4 mg IVPUSH ONETIME ONE Stop: 10/20/18 07:48 Last Admin: 10/20/18 07:59 Dose: 4 mg Polyethylene Glycol (Miralax) 17 gm PO DAILY [facility] Last Admin: 10/24/18 20:27 Dose: 17 gm Rosuvastatin Calcium (Crestor) 20 mg PO BEDTIME [facility] Scopolamine (Transderm-Scop) 1.5 mg TOP ONETIME ONE Stop: 10/28/18 13:05 Last Admin: 10/28/18 14:25 Dose: 1.5 mg Temazepam (Restoril) 15 mg PO BEDTIME PRN PRN Reason: Insomnia Last Admin: 10/26/18 20:47 Dose: 15 mg - Exam Quality Assessment: Supplemental Oxygen General: Alert, Oriented, Cooperative, No Acute Distress HEENT: Pupils Equal, Pupils Reactive, EOMI, Mucous Membr. Moist/[place] Neck: Supple Lungs: Normal Respiratory Effort, Decreased Breath Sounds, Crackles Cardiovascular: Regular Rate, Regular Rhythm GI/Abdominal Exam: Normal Bowel Sounds, Soft, Non-Tender, No Organomegaly, No Distention, No Abnormal Bruit, No Mass (Male) Exam: Other (indwelling foely catheter) Back Exam: Normal Inspection, Decreased Range of Motion Extremities: Normal Inspection, Normal Range of Motion, Non-Tender, No Pedal Edema, Normal Capillary Refill Peripheral Pulses: 2+: Dorsalis Pedis (L), Dorsalis Pedis (R) Skin: Warm, Dry, Intact Neurological: No New Focal Deficit. No: Normal Gait Psy/Mental Status: Alert, Normal Affect, Normal Mood - Problem List & Annotations (1) Acute kidney injury SNOMED Code(s): 46485745 Code(s): N17.9 - ACUTE KIDNEY FAILURE, UNSPECIFIED Status: Acute Current Visit: Yes (2) Mild bibasilar atelectasis SNOMED Code(s): 11852091 Code(s): J98.11 - ATELECTASIS Status: Acute Current Visit: Yes (3) Heart failure SNOMED Code(s): 71292896 Code(s): I50.9 - HEART FAILURE, UNSPECIFIED Status: Acute Current Visit: Yes Qualifiers: Heart failure type: diastolic Heart failure chronicity: acute Qualified Code(s): I50.31 - Acute diastolic (congestive) heart failure (4) Generalized weakness SNOMED Code(s): 52462198 Code(s): R53.1 - WEAKNESS Status: Acute Current Visit: Yes (5) Pulmonary fibrosis SNOMED Code(s): 12415709 Code(s): J84.10 - PULMONARY FIBROSIS, UNSPECIFIED Status: Acute Current Visit: No (6) Hypernatremia SNOMED Code(s): 454153364 Code(s): E87.0 - HYPEROSMOLALITY AND HYPERNATREMIA Status: Resolved Current Visit: Yes (7) Respiratory failure SNOMED Code(s): 555416165 Code(s): J96.90 - RESPIRATORY FAILURE, UNSP, UNSP W HYPOXIA OR HYPERCAPNIA Status: Resolved Current Visit: Yes Qualifiers: Chronicity: acute Respiratory failure complication: hypoxia Qualified Code(s): J96.01 - Acute respiratory failure with hypoxia (8) Pulmonary HTN SNOMED Code(s): 91066844 Code(s): I27.20 - PULMONARY HYPERTENSION, UNSPECIFIED Status: Acute Current Visit: Yes - Problem List Review Problem List Initiated/Reviewed/Updated: Yes - My Orders Last 24 Hours: My Active Orders 10/28/18 19:23 Acetaminophen [Tylenol] 487.5 mg PO BEDTIME PRN 10/28/18 19:25 diphenhydrAMINE [Benadryl] 25 mg PO BEDTIME PRN 10/28/18 21:00 Patient's Own Medication [Ptom] 0 each PO BEDTIME 10/30/18 05:11 CBC WITH AUTO DIFF [HEME] AM MG [MAGNESIUM] [CHEM] AM 10/31/18 05:11 CBC WITH AUTO DIFF [HEME] AM MG [MAGNESIUM] [CHEM] AM 10/31/18 13:00 Remove Patch 1 ea IRISM Q72H - Plan Plan:: Assessment/Plan: Acute: Respiratory Failure - Continues to improve - Continue BIPAP and Supplemental O2 - Family rescinded code status DNR/DNI - Repeat ABG much improved this AM Acute Kidney Injury, Improve - Appears to be starting to improve - Iatrogenic - Acute on chronic renal insufficiency/medical renal disease - Worsening renal function: Cr 1.6-->5.4-->5.1 - Urine output remains good despite worsening Cr level; electrolytes are within limits - Renal U/S report reads cysts on each kidneys - All diuretics were held Aspiration PNA/Mild Bibasilar Consolidation with Small Bilateral Pleural Effusions, Continues to Improve - CT scan confirmed consolidation and findings of pleural effusions - Discontinued IV Zosyn for pharmacy to dose - Afebrile w/o resolved leukocytosis - CRP is 17.9-->13.7-->6.6-->4.3 - 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 Continue to monitor. Given 1 Imodium. - Check CMP, CBC, and mag in the morning - Negative C. Diff - Stool WBC-non (not infectious) - He is now tolerating current diet - Stool studies S/p Hypernatremia - Switch IV fluids to D5 half-normal saline at 75 mL an hour and encourage by mouth intake - 2/2 IV Zosyn plus NS received S/p Respiratory failure - Has baseline pulmonary insufficiency - 2L NC--> 12 LNC last night and now on BIPAP 13/01; continue current treatment - He is now down to 6L NC - ABG as indicated S/p AMS - Severe Acidosis (Hypercapenia and Hypoxia) - Iatrogenic from Restoril (Renal and Pulmonary Insufficiencies) - Medication stayed longer in his system - Reversal agents and BIPAP - Aspiration Precaution Chronic: Impaired Vision HTN HLD Constipation Prostate Disorder Plan: He remains clinically stable Routine AM Labs RT/PT/OT to assess and treat GI and DVT PPx No NSAIDs, Benzos, and Narcs SW/CM for d/c planning Encourage to use IS/FV and to continue bedside physical activity Consider placement to Vibra due to use of BIPAP overnight Updated family about his morning labs, clinical status and treatment plan
[2018-10-29] MEDS: Doxazosin 2 MG Tab PO SCH (20:13)
[2018-10-29] MEDS: Rosuvastatin 10 MG Tab PO SCH (20:13)
[2018-10-29] MEDS: diphenhydrAMINE 25 MG Cap PO PRN (20:14)
[2018-10-29] MEDS: Acetaminophen 325 MG Tab PO PRN (20:14)
[2018-10-29] MEDS: [UNRECOGNIZED DRUG - OTHER] PO SCH (23:34)
[2018-10-29] MEDS: CAFFEINE PO SCH (23:34)
[2018-10-29] MEDS: ASPIRIN PO SCH (23:34)
[2018-10-30] MEDS: Albuterol/Ipratropium 3.0-0.5 MG/3 ML Neb Soln NEB SCH ×4 (05:39→21:34)
[2018-10-30] MEDS: Modafinil 200 MG Tab PO SCH (08:42)
[2018-10-30] MEDS: NIFEdipine 30 MG Tab.ER PO SCH (08:46)
--- NOTE | 2018-10-30 08:58 | PCM.PN ---
- General Info Date of Service: 10/30/18 Admission Dx/Problem (Free Text): Admission Diagnosis/Problem Admission Diagnosis/Problem Dehydration Subjective Update: Follow Up Functional Status: Reports: Pain Controlled, Tolerating Diet, Ambulating, Urinating. Denies: New Symptoms - Review of Systems General: Reports: Weakness. Denies: Fever, Chills HEENT: Reports: No Symptoms Pulmonary: Denies: Shortness of Breath Cardiovascular: Denies: Chest Pain, Dyspnea on Exertion, Lightheadedness Gastrointestinal: Denies: Abdominal Pain, Nausea, Vomiting Genitourinary: Reports: Retention Skin: Reports: No Symptoms Neurological: Reports: Weakness, Gait Disturbance. Denies: Confusion Psychiatric: Denies: Depression, Anxiety, Agitation, Hallucinations Systems Review Comment:: No overnight or acute issues. He rested well last night. He still uses BIPAP and he is now down to 3L NC. He has no new complaints. - Patient Data Vitals - Most Recent: Last Vital Signs Temp 36.4 C 10/30/18 04:00 Pulse 89 10/30/18 04:00 Resp 22 H 10/30/18 04:00 BP 156/64 H 10/30/18 08:46 Pulse Ox 93 L 10/30/18 05:41 Weight - Most Recent: 102.739 kg I&O - Last 24 Hours: Intake & Output 10/29/18 10/30/18 10/30/18 22:59 06:59 14:59 Intake Total 1340 600 Output Total 695 530 Balance 645 70 Lab Results Last 24 Hours: Laboratory Results - last 24 hr 10/29/18 10/30/18 10/30/18 Range/Units 09:10 05:22 05:22 WBC 8.33 (4.23-9.07) K/mm3 RBC 3.33 L (4.63-6.08) M/mm3 Hgb 10.0 L (13.7-17.5) gm/L Hct 31.0 L (40.1-51.0) % MCV 93.1 H (79.0-92.2) fl MCH 30.0 (25.7-32.2) pg MCHC 32.3 (32.2-35.5) g/dl RDW Std Deviation 42.2 (35.1-43.9) fL Plt Count 125 L (163-337) K/mm3 MPV 10.8 (9.4-12.3) fl Neut % (Auto) 76.3 H (34.0-67.9) % Lymph % (Auto) 9.8 L (21.8-53.1) % Lamb % (Auto) 12.0 (5.3-12.2) % Eos % (Auto) 1.4 (0.8-7.0) Baso % (Auto) 0.0 L (0.1-1.2) % Neut # (Auto) 6.35 H (1.78-5.38) K/mm3 Lymph # (Auto) 0.82 L (1.32-3.57) K/mm3 Lamb # (Auto) 1.00 H (0.30-0.82) K/mm3 Eos # (Auto) 0.12 (0.04-0.54) K/mm3 Baso # (Auto) 0.00 L (0.01-0.08) K/mm3 Manual Slide Review Normal smear Puncture Site Rt radial ABG pH 7.28 L (7.35-7.45) ABG pCO2 59.1 H (35.0-45.0) mmHg ABG pO2 64.0 L (80.0-100.0) mmHg ABG HCO3 27.0 H (22.0-26.0) meq/L ABG O2 Saturation 89.2 L (96.0-97.0) % ABG Base Excess 0.0 (-2-2.0) A-a Gradient 67 mmHg O2 Delivery Device Nasal cannula Oxygen Flow Rate 3.0 Magnesium 2.1 (1.8-2.4) mg/dl Med Orders - Current: Current Medications Acetaminophen (Tylenol) 650 mg PO Q4H PRN PRN Reason: Pain (Mild 1-3)/fever Last Admin: 10/26/18 14:02 Dose: 650 mg Acetaminophen (Tylenol) 487.5 mg PO BEDTIME PRN PRN Reason: Insomnia Last Admin: 10/29/18 20:14 Dose: 487.5 mg Albuterol/Ipratropium (Duoneb 3.0-0.5 Mg/3 Ml) 3 ml NEB QIDRT [facility] Last Admin: 10/30/18 05:39 Dose: 3 ml Albuterol/Ipratropium (Duoneb 3.0-0.5 Mg/3 Ml) 3 ml NEB Q4H PRN PRN Reason: Wheezing Apixaban (Eliquis) 2.5 mg PO BID [facility] Last Admin: 10/29/18 20:13 Dose: 2.5 mg Diphenhydramine HCl (Benadryl) 25 mg PO BEDTIME PRN PRN Reason: Insomnia Last Admin: 10/29/18 20:14 Dose: 25 mg Doxazosin Mesylate (Cardura) 1 mg PO BEDTIME [facility] Last Admin: 10/29/18 20:13 Dose: 1 mg Lorazepam (Ativan) 0.25 mg IVPUSH Q4H PRN PRN Reason: Anxiety Metoprolol Tartrate (Lopressor) 5 mg IVPUSH Q4H PRN PRN Reason: Tachycardia Last Admin: 10/28/18 18:37 Dose: 5 mg Miscellaneous Information (Remove Patch) 1 ea TRDERM Q72H [facility] Stop: 10/31/18 13:01 Modafinil (Provigil) 100 mg PO DAILY [facility] Last Admin: 10/30/18 08:42 Dose: 100 mg Nifedipine (Procardia Xl) 60 mg PO DAILY [facility] Last Admin: 10/30/18 08:46 Dose: 60 mg Melatonin 5 Mg Tab (Own Med) 5 mg PO BEDTIME PRN PRN Reason: Insomnia Last Admin: 10/21/18 20:17 Dose: 5 mg Ondansetron HCl (Zofran Odt) 4 mg PO Q6H PRN PRN Reason: nausea, able to take PO Julio C Back And Body (Asa 500mg + Caffeine 32.5mg/Tab) Own Med 0 each PO BEDTIME [facility] Last Admin: 10/29/18 23:34 Dose: Not Given Polyethylene Glycol (Miralax) 17 gm PO DAILY PRN PRN Reason: Constipation Last Admin: 10/29/18 20:59 Dose: 17 gm Rosuvastatin Calcium (Crestor) 20 mg PO BEDTIME [facility] Last Admin: 10/29/18 20:13 Dose: 20 mg Sodium Chloride (Saline Flush) 10 ml FLUSH ASDIRECTED PRN PRN Reason: Keep Vein Open Last Admin: 10/25/18 09:24 Dose: 10 ml Discontinued Medications Bisacodyl (Dulcolax) 10 mg RECTAL DAILY [facility] Stop: 10/27/18 09:01 Last Admin: 10/27/18 10:35 Dose: Not Given Bisacodyl (Dulcolax) 10 mg RECTAL ONETIME ONE Stop: 10/25/18 14:23 Last Admin: 10/25/18 14:36 Dose: 10 mg Calcium Carbonate/Glycine (Tums) 500 mg PO Q2HR ONE Stop: 10/22/18 00:17 Last Admin: 10/22/18 00:22 Dose: 500 mg Diltiazem HCl (Cardizem) 10 mg IVPUSH ONETIME ONE Stop: 10/27/18 11:39 Last Admin: 10/27/18 12:29 Dose: 10 mg Flumazenil (Romazicon) 0.2 mg IVPUSH ONETIME ONE Stop: 10/27/18 07:47 Last Admin: 10/27/18 08:08 Dose: 0.2 mg Flumazenil (Romazicon) 0.2 mg IVPUSH ONETIME ONE Stop: 10/27/18 09:35 Last Admin: 10/27/18 10:22 Dose: 0.2 mg Flumazenil (Romazicon) 0.2 mg IVPUSH ONETIME ONE Stop: 10/27/18 15:55 Last Admin: 10/27/18 16:22 Dose: 0.2 mg Furosemide (Lasix) 40 mg PO DAILY [facility] Last Admin: 10/22/18 09:30 Dose: 40 mg Furosemide (Lasix) 40 mg IVPUSH DAILY [facility] Last Admin: 10/22/18 16:53 Dose: 40 mg Sodium Chloride (Normal Saline) 1,000 mls @ 1,000 mls/hr IV .BOLUS [facility] Last Admin: 10/20/18 07:59 Dose: 1,000 mls/hr Sodium Chloride (Normal Saline) 1,000 mls @ 100 mls/hr IV ASDIRECTED [facility] Last Admin: 10/21/18 05:51 Dose: 100 mls/hr Magnesium Sulfate 4 gm/ Premix 50 mls @ 12.5 mls/hr IV ONETIME ONE Stop: 10/21/18 18:06 Last Admin: 10/21/18 14:30 Dose: 12.5 mls/hr Dextrose/Sodium Chloride (Dextrose 5%-1/2 Ns) 1,000 mls @ 75 mls/hr IV ASDIRECTED [facility] Last Admin: 10/21/18 17:54 Dose: 75 mls/hr Sodium Chloride (Normal Saline) 1,000 mls @ 75 mls/hr IV ASDIRECTED [facility] Piperacillin Sod/Tazobactam (Sod 4.5 gm/ Sodium Chloride) 100 mls @ 200 mls/hr IV ONETIME ONE Stop: 10/22/18 15:59 Last Admin: 10/22/18 16:56 Dose: 200 mls/hr Piperacillin Sod/Tazobactam (Sod 4.5 gm/ Sodium Chloride) 100 mls @ 25 mls/hr IV Q8H [facility] Piperacillin Sod/Tazobactam (Sod 4.5 gm/ Sodium Chloride) 100 mls @ 25 mls/hr IV Q8H [facility] Last Admin: 10/23/18 11:39 Dose: Not Given Furosemide 100 mg/ Sodium (Chloride) 100 mls @ 4 mls/hr IV TITRATE [facility]; Protocol Last Infusion: 10/23/18 18:57 Dose: 0 mls/hr Piperacillin Sod/Tazobactam (Sod 4.5 gm/ Sodium Chloride) 100 mls @ 25 mls/hr IV Q12H [facility] Last Admin: 10/25/18 13:53 Dose: 25 mls/hr Sodium Chloride (Normal Saline) 1,000 mls @ 50 mls/hr IV ASDIRECTED [facility] Last Infusion: 10/24/18 09:38 Dose: 25 mls/hr Sodium Chloride (Normal Saline) 1,000 mls @ 25 mls/hr IV ASDIRECTED [facility] Ibuprofen (Motrin) 400 mg PO Q8H PRN PRN Reason: pain Last Admin: 10/26/18 20:47 Dose: 400 mg Ibuprofen (Motrin) 200 mg PO Q8H PRN PRN Reason: pain Lactulose (Cephulac) 30 gm PO BID [facility] Last Admin: 10/28/18 09:44 Dose: Not Given Lactulose (Cephulac) 20 gm PO ONETIME ONE Stop: 10/25/18 14:22 Last Admin: 10/25/18 14:35 Dose: 20 gm Lisinopril (Prinivil) 20 mg PO BEDTIME [facility] Lisinopril (Prinivil) 20 mg PO BEDTIME [facility] Loperamide HCl (Imodium) 4 mg PO NOW STA Stop: 10/21/18 10:56 Last Admin: 10/21/18 11:15 Dose: 4 mg Methylprednisolone Sodium Succinate (Solu-Medrol) 40 mg IVPUSH ONETIME ONE Stop: 10/23/18 23:01 Last Admin: 10/23/18 23:23 Dose: 40 mg Methylprednisolone Sodium Succinate (Solu-Medrol) 40 mg IVPUSH Q12H [facility] Stop: 10/25/18 21:01 Last Admin: 10/25/18 20:00 Dose: 40 mg Metoclopramide HCl (Reglan) 5 mg IVPUSH ONETIME ONE Stop: 10/25/18 14:24 Last Admin: 10/25/18 14:35 Dose: 5 mg Metolazone (Zaroxolyn) 2.5 mg PO BIDDIURETIC [facility] Last Admin: 10/25/18 05:47 Dose: 2.5 mg Metolazone (Zaroxolyn) 2.5 mg PO ONETIME ONE Stop: 10/24/18 15:01 Last Admin: 10/24/18 16:57 Dose: 2.5 mg Nifedipine (Procardia Xl) 60 mg PO DAILY [facility] Last Admin: 10/21/18 09:38 Dose: 60 mg Rosuvastatin 20mg (TabOwn Med) 1 each PO BEDTIME [facility] Last Admin: 10/21/18 20:17 Dose: 1 each Quinapril 40mg Tab (Own Med) 1 each PO BEDTIME [facility] Last Admin: 10/21/18 20:16 Dose: 1 each Nifedipine 60mg Tab (ErOwn Med) 1 each PO DAILY [facility] Non-Formulary Medication (Aspirin/Caffeine [Julio C Back-Body 500-32.5 Mg]) 2 each PO BEDTIME PRN PRN Reason: Pain Ondansetron HCl (Zofran) 4 mg IVPUSH ONETIME ONE Stop: 10/20/18 07:48 Last Admin: 10/20/18 07:59 Dose: 4 mg Polyethylene Glycol (Miralax) 17 gm PO DAILY [facility] Last Admin: 10/24/18 20:27 Dose: 17 gm Rosuvastatin Calcium (Crestor) 20 mg PO BEDTIME [facility] Scopolamine (Transderm-Scop) 1.5 mg TOP ONETIME ONE Stop: 10/28/18 13:05 Last Admin: 10/28/18 14:25 Dose: 1.5 mg Temazepam (Restoril) 15 mg PO BEDTIME PRN PRN Reason: Insomnia Last Admin: 10/26/18 20:47 Dose: 15 mg - Exam Quality Assessment: Supplemental Oxygen General: Alert, Oriented, Cooperative, No Acute Distress HEENT: Pupils Equal, Pupils Reactive, EOMI, Mucous Membr. Moist/[place] Neck: Supple, Trachea Midline Lungs: Normal Respiratory Effort, Decreased Breath Sounds, Crackles (mild at the bases) Cardiovascular: Regular Rate, Regular Rhythm GI/Abdominal Exam: Normal Bowel Sounds, Soft, Non-Tender, No Organomegaly, No Distention, No Abnormal Bruit, No Mass (Male) Exam: Other (indwelling villalobos catheter ) Extremities: Normal Inspection, Normal Range of Motion, Non-Tender, Normal Capillary Refill, Pedal Edema (right foot) Peripheral Pulses: 1+: Posterior Tibial (R), Dorsalis Pedis (R), 2+: Posterior Tibial (L), Dorsalis Pedis (L) Skin: Warm, Dry, Intact Neurological: No New Focal Deficit. No: Normal Gait Psy/Mental Status: Alert, Normal Affect, Normal Mood - Problem List & Annotations (1) Acute kidney injury SNOMED Code(s): 12038701 Code(s): N17.9 - ACUTE KIDNEY FAILURE, UNSPECIFIED Status: Acute Current Visit: Yes (2) Mild bibasilar atelectasis SNOMED Code(s): 18432600 Code(s): J98.11 - ATELECTASIS Status: Acute Current Visit: Yes (3) Heart failure SNOMED Code(s): 45871126 Code(s): I50.9 - HEART FAILURE, UNSPECIFIED Status: Acute Current Visit: Yes Qualifiers: Heart failure type: diastolic Heart failure chronicity: acute Qualified Code(s): I50.31 - Acute diastolic (congestive) heart failure (4) Generalized weakness SNOMED Code(s): 16498779 Code(s): R53.1 - WEAKNESS Status: Acute Current Visit: Yes (5) Pulmonary fibrosis SNOMED Code(s): 44245363 Code(s): J84.10 - PULMONARY FIBROSIS, UNSPECIFIED Status: Acute Current Visit: No (6) Hypernatremia SNOMED Code(s): 464399967 Code(s): E87.0 - HYPEROSMOLALITY AND HYPERNATREMIA Status: Resolved Current Visit: Yes (7) Respiratory failure SNOMED Code(s): 838502012 Code(s): J96.90 - RESPIRATORY FAILURE, UNSP, UNSP W HYPOXIA OR HYPERCAPNIA Status: Resolved Current Visit: Yes Qualifiers: Chronicity: acute Respiratory failure complication: hypoxia Qualified Code(s): J96.01 - Acute respiratory failure with hypoxia (8) Pulmonary HTN SNOMED Code(s): 71748512 Code(s): I27.20 - PULMONARY HYPERTENSION, UNSPECIFIED Status: Acute Current Visit: Yes (9) History of atrial flutter SNOMED Code(s): 341161014 Code(s): Z86.79 - PERSONAL HISTORY OF OTHER DISEASES OF THE CIRCULATORY SYSTEM Status: Acute Current Visit: Yes (10) Urinary retention SNOMED Code(s): 131764598 Code(s): R33.9 - RETENTION OF URINE, UNSPECIFIED Status: Acute Current Visit: Yes - Problem List Review Problem List Initiated/Reviewed/Updated: Yes - My Orders Last 24 Hours: My Active Orders 10/30/18 05:11 BMP [BASIC METABOLIC PANEL,BMP] [CHEM] Routine 10/31/18 05:11 CBC WITH AUTO DIFF [HEME] AM MG [MAGNESIUM] [CHEM] AM 10/31/18 13:00 Remove Patch 1 ea TRDERM Q72H - Plan Plan:: Assessment/Plan: Acute: Respiratory Failure - Continues to improve - Continue BIPAP and Supplemental O2 - Family rescinded code status DNR/DNI - Repeat ABG much improved this AM Acute Kidney Injury, Continues to Improve - Iatrogenic - Acute on chronic renal insufficiency/medical renal disease - Worsening renal function: Cr 1.6-->5.4-->5.1-->4.2 - Urine output remains good despite worsening Cr level; electrolytes are within limits - Renal U/S report reads cysts on each kidneys - Continue to hold all diuretics Aspiration PNA/Mild Bibasilar Consolidation with Small Bilateral Pleural Effusions, Continues to Improve - CT scan confirmed consolidation and findings of pleural effusions - Discontinued IV Zosyn for pharmacy to dose - Afebrile w/o resolved leukocytosis - CRP is 17.9-->13.7-->6.6-->4.3 - MACHINE [employer]ER evaluation: mild alyssia-pharyngeal dysphagia - Aspiration precautions - IS/Acapella/RT - Repeat CXR today: thick areas of atelectasis within the right lung base , minimal pleural effusion HF with Preserved EF/Volume Overload - BNP 6158 (was 126 earlier in month)-->6652-->5739-->7825 - Echo 10/23/2018: LVEF of 55-60%, No RWMA, Atrial Fibrillation/Flutter, Moderately Dilated Atrium and Mod-Severely Elevated Right Ventricular Systolic Pressure of 51.0 mmHg (Pulmonary HTN). 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 Continue to monitor. Given 1 Imodium. - Check CMP, CBC, and mag in the morning - Negative C. Diff - Stool WBC-non (not infectious) - He is now tolerating current diet - Stool studies S/p Hypernatremia - Switch IV fluids to D5 half-normal saline at 75 mL an hour and encourage by mouth intake - 2/2 IV Zosyn plus NS received S/p Respiratory failure - Has baseline pulmonary insufficiency - 2L NC--> 12 LNC last night and now on BIPAP 13/01; continue current treatment - He is now down to 6L NC - ABG as indicated S/p AMS - Severe Acidosis (Hypercapenia and Hypoxia) - Iatrogenic from Restoril (Renal and Pulmonary Insufficiencies) - Medication stayed longer in his system - Reversal agents and BIPAP - Aspiration Precaution S/p A-flutter - He is now back to sinus rhythm - [id number] Score 3 - Eliquis 2.5 mg po BID for stroke prophylaxis Chronic: Impaired Vision HTN HLD Constipation Prostate Disorder Plan: He remains clinically stable Routine AM Labs RT/PT/OT to assess and treat GI and DVT PPx No NSAIDs, Benzos, and Narcs SW/CM for d/c planning Encourage to use IS/FV and to continue bedside physical activity Pending placement to [facility] due to use of BIPAP Updated family about his morning labs, clinical status, and discharge care plan
[2018-10-30] MEDS: Apixaban 2.5 MG Tab PO SCH ×2 (09:30→20:10)
[2018-10-30] MEDS: Acetaminophen 325 MG Tab PO PRN (18:34)
[2018-10-30] MEDS: diphenhydrAMINE 25 MG Cap PO PRN (20:10)
[2018-10-30] MEDS: Rosuvastatin 10 MG Tab PO SCH (20:10)
[2018-10-30] MEDS: Doxazosin 2 MG Tab PO SCH (20:10)
[2018-10-30] MEDS: ASPIRIN PO SCH (20:13)
[2018-10-30] MEDS: [UNRECOGNIZED DRUG - OTHER] PO SCH (20:13)
[2018-10-30] MEDS: CAFFEINE PO SCH (20:13)
[2018-10-31] MEDS: Albuterol/Ipratropium 3.0-0.5 MG/3 ML Neb Soln NEB SCH ×2 (05:13→09:00)
[2018-10-31] MEDS: Acetaminophen 325 MG Tab PO PRN (06:42)
--- NOTE | 2018-10-31 07:56 | PCM.PN ---
- General Info Date of Service: 10/31/18 Admission Dx/Problem (Free Text): Admission Diagnosis/Problem Admission Diagnosis/Problem Dehydration Subjective Update: Follow Up Functional Status: Reports: Pain Controlled, Tolerating Diet, Ambulating, Urinating. Denies: New Symptoms - Patient Data Vitals - Most Recent: Last Vital Signs Temp 36.4 C 10/31/18 03:00 Pulse 80 10/31/18 03:00 Resp 27 H 10/31/18 03:00 BP 121/56 L 10/31/18 03:00 Pulse Ox 93 L 10/31/18 05:12 Weight - Most Recent: 104.326 kg I&O - Last 24 Hours: Intake & Output 10/30/18 10/31/18 10/31/18 22:59 06:59 14:59 Intake Total 550 Output Total 655 660 Balance -105 -660 Lab Results Last 24 Hours: Laboratory Results - last 24 hr 10/30/18 10/31/18 10/31/18 Range/Units 05:22 05:07 05:07 WBC 7.97 (4.23-9.07) K/mm3 RBC 2.67 L (4.63-6.08) M/mm3 Hgb 8.2 L D (13.7-17.5) gm/L Hct 25.1 L (40.1-51.0) % MCV 94.0 H (79.0-92.2) fl MCH 30.7 (25.7-32.2) pg MCHC 32.7 (32.2-35.5) g/dl RDW Std Deviation 41.6 (35.1-43.9) fL Plt Count 120 L (163-337) K/mm3 MPV 11.2 (9.4-12.3) fl Neut % (Auto) 77.0 H (34.0-67.9) % Lymph % (Auto) 9.5 L (21.8-53.1) % [facility] % (Auto) 12.0 (5.3-12.2) % Eos % (Auto) 1.0 (0.8-7.0) Baso % (Auto) 0.0 L (0.1-1.2) % Neut # (Auto) 6.13 H (1.78-5.38) K/mm3 Lymph # (Auto) 0.76 L (1.32-3.57) K/mm3 [facility] # (Auto) 0.96 H (0.30-0.82) K/mm3 Eos # (Auto) 0.08 (0.04-0.54) K/mm3 Baso # (Auto) 0.00 L (0.01-0.08) K/mm3 Manual Slide Review Abnormal smear Sodium 146 H 147 H (136-145) mEq/L Potassium 3.9 3.7 (3.5-5.1) mEq/L Chloride 109 H 111 H (98-107) mEq/L Carbon Dioxide 27 27 (21-32) mEq/L Anion Gap 13.9 12.7 (5-15) BUN 141 H 155 H (7-18) mg/dL Creatinine 4.2 H 4.0 H (0.7-1.3) mg/dL Est Cr Clr Drug Dosing 13.74 14.43 mL/min Estimated GFR (MDRD) 13 14 (>60) mL/min BUN/Creatinine Ratio 33.6 H 38.8 H (14-18) Glucose 154 H 146 H (83-115) mg/dL Calcium 7.9 L 8.1 L (8.5-10.1) mg/dL Magnesium 2.1 (1.8-2.4) mg/dl Med Orders - Current: Current Medications Acetaminophen (Tylenol) 650 mg PO Q4H PRN PRN Reason: Pain (Mild 1-3)/fever Last Admin: 10/31/18 06:42 Dose: 650 mg Acetaminophen (Tylenol) 487.5 mg PO BEDTIME PRN PRN Reason: Insomnia Last Admin: 10/29/18 20:14 Dose: 487.5 mg Albuterol/Ipratropium (Duoneb 3.0-0.5 Mg/3 Ml) 3 ml NEB QIDRT [facility] Last Admin: 10/31/18 05:13 Dose: 3 ml Albuterol/Ipratropium (Duoneb 3.0-0.5 Mg/3 Ml) 3 ml NEB Q4H PRN PRN Reason: Wheezing Apixaban (Eliquis) 2.5 mg PO BID [facility] Last Admin: 10/30/18 20:10 Dose: 2.5 mg Diphenhydramine HCl (Benadryl) 25 mg PO BEDTIME PRN PRN Reason: Insomnia Last Admin: 10/30/18 20:10 Dose: 25 mg Doxazosin Mesylate (Cardura) 1 mg PO BEDTIME [facility] Last Admin: 10/30/18 20:10 Dose: 1 mg Lorazepam (Ativan) 0.25 mg IVPUSH Q4H PRN PRN Reason: Anxiety Metoprolol Tartrate (Lopressor) 5 mg IVPUSH Q4H PRN PRN Reason: Tachycardia Last Admin: 10/28/18 18:37 Dose: 5 mg Miscellaneous Information (Remove Patch) 1 ea TRDERM Q72H [facility] Stop: 10/31/18 13:01 Modafinil (Provigil) 100 mg PO DAILY [facility] Last Admin: 10/30/18 08:42 Dose: 100 mg Nifedipine (Procardia Xl) 60 mg PO DAILY [facility] Last Admin: 10/30/18 08:46 Dose: 60 mg Melatonin 5 Mg Tab (Own Med) 5 mg PO BEDTIME PRN PRN Reason: Insomnia Last Admin: 10/21/18 20:17 Dose: 5 mg Ondansetron HCl (Zofran Odt) 4 mg PO Q6H PRN PRN Reason: nausea, able to take PO Julio C Back And Body (Asa 500mg + Caffeine 32.5mg/Tab) Own Med 0 each PO BEDTIME [facility] Last Admin: 10/30/18 20:13 Dose: Not Given Polyethylene Glycol (Miralax) 17 gm PO DAILY PRN PRN Reason: Constipation Last Admin: 10/29/18 20:59 Dose: 17 gm Rosuvastatin Calcium (Crestor) 20 mg PO BEDTIME [facility] Last Admin: 10/30/18 20:10 Dose: 20 mg Sodium Chloride (Saline Flush) 10 ml FLUSH ASDIRECTED PRN PRN Reason: Keep Vein Open Last Admin: 10/25/18 09:24 Dose: 10 ml Discontinued Medications Bisacodyl (Dulcolax) 10 mg RECTAL DAILY [facility] Stop: 10/27/18 09:01 Last Admin: 10/27/18 10:35 Dose: Not Given Bisacodyl (Dulcolax) 10 mg RECTAL ONETIME ONE Stop: 10/25/18 14:23 Last Admin: 10/25/18 14:36 Dose: 10 mg Calcium Carbonate/Glycine (Tums) 500 mg PO Q2HR ONE Stop: 10/22/18 00:17 Last Admin: 10/22/18 00:22 Dose: 500 mg Diltiazem HCl (Cardizem) 10 mg IVPUSH ONETIME ONE Stop: 10/27/18 11:39 Last Admin: 10/27/18 12:29 Dose: 10 mg Flumazenil (Romazicon) 0.2 mg IVPUSH ONETIME ONE Stop: 10/27/18 07:47 Last Admin: 10/27/18 08:08 Dose: 0.2 mg Flumazenil (Romazicon) 0.2 mg IVPUSH ONETIME ONE Stop: 10/27/18 09:35 Last Admin: 10/27/18 10:22 Dose: 0.2 mg Flumazenil (Romazicon) 0.2 mg IVPUSH ONETIME ONE Stop: 10/27/18 15:55 Last Admin: 10/27/18 16:22 Dose: 0.2 mg Furosemide (Lasix) 40 mg PO DAILY [facility] Last Admin: 10/22/18 09:30 Dose: 40 mg Furosemide (Lasix) 40 mg IVPUSH DAILY [facility] Last Admin: 10/22/18 16:53 Dose: 40 mg Sodium Chloride (Normal Saline) 1,000 mls @ 1,000 mls/hr IV .BOLUS [facility] Last Admin: 10/20/18 07:59 Dose: 1,000 mls/hr Sodium Chloride (Normal Saline) 1,000 mls @ 100 mls/hr IV ASDIRECTED [facility] Last Admin: 10/21/18 05:51 Dose: 100 mls/hr Magnesium Sulfate 4 gm/ Premix 50 mls @ 12.5 mls/hr IV ONETIME ONE Stop: 10/21/18 18:06 Last Admin: 10/21/18 14:30 Dose: 12.5 mls/hr Dextrose/Sodium Chloride (Dextrose 5%-1/2 Ns) 1,000 mls @ 75 mls/hr IV ASDIRECTED [facility] Last Admin: 10/21/18 17:54 Dose: 75 mls/hr Sodium Chloride (Normal Saline) 1,000 mls @ 75 mls/hr IV ASDIRECTED [facility] Piperacillin Sod/Tazobactam (Sod 4.5 gm/ Sodium Chloride) 100 mls @ 200 mls/hr IV ONETIME ONE Stop: 10/22/18 15:59 Last Admin: 10/22/18 16:56 Dose: 200 mls/hr Piperacillin Sod/Tazobactam (Sod 4.5 gm/ Sodium Chloride) 100 mls @ 25 mls/hr IV Q8H [facility] Piperacillin Sod/Tazobactam (Sod 4.5 gm/ Sodium Chloride) 100 mls @ 25 mls/hr IV Q8H [facility] Last Admin: 10/23/18 11:39 Dose: Not Given Furosemide 100 mg/ Sodium (Chloride) 100 mls @ 4 mls/hr IV TITRATE [facility]; Protocol Last Infusion: 10/23/18 18:57 Dose: 0 mls/hr Piperacillin Sod/Tazobactam (Sod 4.5 gm/ Sodium Chloride) 100 mls @ 25 mls/hr IV Q12H [facility] Last Admin: 10/25/18 13:53 Dose: 25 mls/hr Sodium Chloride (Normal Saline) 1,000 mls @ 50 mls/hr IV ASDIRECTED [facility] Last Infusion: 10/24/18 09:38 Dose: 25 mls/hr Sodium Chloride (Normal Saline) 1,000 mls @ 25 mls/hr IV ASDIRECTED [facility] Ibuprofen (Motrin) 400 mg PO Q8H PRN PRN Reason: pain Last Admin: 10/26/18 20:47 Dose: 400 mg Ibuprofen (Motrin) 200 mg PO Q8H PRN PRN Reason: pain Lactulose (Cephulac) 30 gm PO BID [facility] Last Admin: 10/28/18 09:44 Dose: Not Given Lactulose (Cephulac) 20 gm PO ONETIME ONE Stop: 10/25/18 14:22 Last Admin: 10/25/18 14:35 Dose: 20 gm Lisinopril (Prinivil) 20 mg PO BEDTIME [facility] Lisinopril (Prinivil) 20 mg PO BEDTIME [facility] Loperamide HCl (Imodium) 4 mg PO NOW STA Stop: 10/21/18 10:56 Last Admin: 10/21/18 11:15 Dose: 4 mg Methylprednisolone Sodium Succinate (Solu-Medrol) 40 mg IVPUSH ONETIME ONE Stop: 10/23/18 23:01 Last Admin: 10/23/18 23:23 Dose: 40 mg Methylprednisolone Sodium Succinate (Solu-Medrol) 40 mg IVPUSH Q12H [facility] Stop: 10/25/18 21:01 Last Admin: 10/25/18 20:00 Dose: 40 mg Metoclopramide HCl (Reglan) 5 mg IVPUSH ONETIME ONE Stop: 10/25/18 14:24 Last Admin: 10/25/18 14:35 Dose: 5 mg Metolazone (Zaroxolyn) 2.5 mg PO BIDDIURETIC [facility] Last Admin: 10/25/18 05:47 Dose: 2.5 mg Metolazone (Zaroxolyn) 2.5 mg PO ONETIME ONE Stop: 10/24/18 15:01 Last Admin: 10/24/18 16:57 Dose: 2.5 mg Nifedipine (Procardia Xl) 60 mg PO DAILY [facility] Last Admin: 10/21/18 09:38 Dose: 60 mg Rosuvastatin 20mg (TabOwn Med) 1 each PO BEDTIME [facility] Last Admin: 10/21/18 20:17 Dose: 1 each Quinapril 40mg Tab (Own Med) 1 each PO BEDTIME [facility] Last Admin: 10/21/18 20:16 Dose: 1 each Nifedipine 60mg Tab (ErOwn Med) 1 each PO DAILY [facility] Non-Formulary Medication (Aspirin/Caffeine [Julio C Back-Body 500-32.5 Mg]) 2 each PO BEDTIME PRN PRN Reason: Pain Ondansetron HCl (Zofran) 4 mg IVPUSH ONETIME ONE Stop: 10/20/18 07:48 Last Admin: 10/20/18 07:59 Dose: 4 mg Polyethylene Glycol (Miralax) 17 gm PO DAILY [facility] Last Admin: 10/24/18 20:27 Dose: 17 gm Rosuvastatin Calcium (Crestor) 20 mg PO BEDTIME [facility] Scopolamine (Transderm-Scop) 1.5 mg TOP ONETIME ONE Stop: 10/28/18 13:05 Last Admin: 10/28/18 14:25 Dose: 1.5 mg Temazepam (Restoril) 15 mg PO BEDTIME PRN PRN Reason: Insomnia Last Admin: 10/26/18 20:47 Dose: 15 mg - Problem List & Annotations (1) Acute kidney injury SNOMED Code(s): 83466769 Code(s): N17.9 - ACUTE KIDNEY FAILURE, UNSPECIFIED Status: Acute Current Visit: Yes (2) Mild bibasilar atelectasis SNOMED Code(s): 67534878 Code(s): J98.11 - ATELECTASIS Status: Acute Current Visit: Yes (3) Heart failure SNOMED Code(s): 40956336 Code(s): I50.9 - HEART FAILURE, UNSPECIFIED Status: Acute Current Visit: Yes Qualifiers: Heart failure type: diastolic Heart failure chronicity: acute Qualified Code(s): I50.31 - Acute diastolic (congestive) heart failure (4) Generalized weakness SNOMED Code(s): 31172716 Code(s): R53.1 - WEAKNESS Status: Acute Current Visit: Yes (5) Pulmonary fibrosis SNOMED Code(s): 84995875 Code(s): J84.10 - PULMONARY FIBROSIS, UNSPECIFIED Status: Acute Current Visit: No (6) Hypernatremia SNOMED Code(s): 038112305 Code(s): E87.0 - HYPEROSMOLALITY AND HYPERNATREMIA Status: Resolved Current Visit: Yes (7) Respiratory failure SNOMED Code(s): 960295700 Code(s): J96.90 - RESPIRATORY FAILURE, UNSP, UNSP W HYPOXIA OR HYPERCAPNIA Status: Resolved Current Visit: Yes Qualifiers: Chronicity: acute Respiratory failure complication: hypoxia Qualified Code(s): J96.01 - Acute respiratory failure with hypoxia (8) Pulmonary HTN SNOMED Code(s): 62764193 Code(s): I27.20 - PULMONARY HYPERTENSION, UNSPECIFIED Status: Acute Current Visit: Yes (9) History of atrial flutter SNOMED Code(s): 421139508 Code(s): Z86.79 - PERSONAL HISTORY OF OTHER DISEASES OF THE CIRCULATORY SYSTEM Status: Acute Current Visit: Yes (10) Urinary retention SNOMED Code(s): 988315982 Code(s): R33.9 - RETENTION OF URINE, UNSPECIFIED Status: Acute Current Visit: Yes - My Orders Last 24 Hours: My Active Orders 10/30/18 10:25 Patient Status [ADT] Routine 10/31/18 13:00 Remove Patch 1 ea TRDERM Q72H 11/01/18 05:11 BMP [BASIC METABOLIC PANEL,BMP] [CHEM] AM - Plan Plan:: Assessment/Plan: Acute: Respiratory Failure - Continues to improve - Continue BIPAP and Supplemental O2 - Family rescinded code status DNR/DNI - Repeat ABG much improved this AM Acute Kidney Injury, Continues to Improve - Iatrogenic - Acute on chronic renal insufficiency/medical renal disease - Worsening renal function: Cr 1.6-->5.4-->5.1-->4.2 - Urine output remains good despite worsening Cr level; electrolytes are within limits - Renal U/S report reads cysts on each kidneys - Continue to hold all diuretics Aspiration PNA/Mild Bibasilar Consolidation with Small Bilateral Pleural Effusions, Continues to Improve - CT scan confirmed consolidation and findings of pleural effusions - Discontinued IV Zosyn for pharmacy to dose - Afebrile w/o resolved leukocytosis - CRP is 17.9-->13.7-->6.6-->4.3 - [employer] evaluation: mild alyssia-pharyngeal dysphagia - Aspiration precautions - IS/Acapella/RT - Repeat CXR today: thick areas of atelectasis within the right lung base , minimal pleural effusion HF with Preserved EF/Volume Overload - BNP 6158 (was 126 earlier in month)-->6652-->5739-->7825 - Echo 10/23/2018: LVEF of 55-60%, No RWMA, Atrial Fibrillation/Flutter, Moderately Dilated Atrium and Mod-Severely Elevated Right Ventricular Systolic Pressure of 51.0 mmHg (Pulmonary HTN). 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 Continue to monitor. Given 1 Imodium. - Check CMP, CBC, and mag in the morning - Negative C. Diff - Stool WBC-non (not infectious) - He is now tolerating current diet - Stool studies S/p Hypernatremia - Switch IV fluids to D5 half-normal saline at 75 mL an hour and encourage by mouth intake - 2/2 IV Zosyn plus NS received S/p Respiratory failure - Has baseline pulmonary insufficiency - 2L NC--> 12 LNC last night and now on BIPAP 13/01; continue current treatment - He is now down to 6L NC - ABG as indicated S/p AMS - Severe Acidosis (Hypercapenia and Hypoxia) - Iatrogenic from Restoril (Renal and Pulmonary Insufficiencies) - Medication stayed longer in his system - Reversal agents and BIPAP - Aspiration Precaution S/p A-flutter - He is now back to sinus rhythm - [id number] Score 3 - Eliquis 2.5 mg po BID for stroke prophylaxis Chronic: Impaired Vision HTN HLD Constipation Prostate Disorder Plan: He remains clinically stable Routine AM Labs RT/PT/OT to assess and treat GI and DVT PPx No NSAIDs, Benzos, and Narcs SW/CM for d/c planning Encourage to use IS/FV and to continue bedside physical activity Pending placement to [facility] due to use of BIPAP Updated family about his morning labs, clinical status, and discharge care plan
[2018-10-31] MEDS: Apixaban 2.5 MG Tab PO SCH (08:25)
[2018-10-31] MEDS: Modafinil 200 MG Tab PO SCH (08:25)
[2018-10-31] MEDS: NIFEdipine 30 MG Tab.ER PO SCH (09:00)
--- NOTE | 2018-10-31 13:55 | PCM.DCSUM1 ---
Discharge Summary - Hospital Course HPI Initial Comments: Patient arrived at the emergency room via EMS secondary to generalized weakness , shoulder, and neck pain. Patient woke up this morning and had 2 large bowel movements became weak. Patient then developed bilateral shoulder pain and neck pain. Patient denies any nausea or vomiting. His had a similar episode of diarrhea, but she also had vomiting. Patient has recently been placed on oxygen secondary to former slowing. Patient denies any fever or chills. Denies any hematochezia or melena. Denies any recent antibiotics. Denies any hemoptysis. In the emergency room EKG showed normal sinus rhythm with Q waves in anterior leads. Chest x-ray showed no acute changes or infiltrates. White count was elevated at 12,000 and hemoglobin of 13.6. Platelets were slightly low at 129. Creatinine was elevated at 1.9 which is slightly elevated for him. UA had red blood cells were otherwise negative. Patient was placed in observation status because he was too weak for returning to home and was felt to hydrate him. Diagnosis: Stroke: No Modified Bremer Scale: No Symptoms at All Modified Felix Scale Score: 0 - Discharge Data Discharge Date: 10/31/18 Discharge Disposition: DC/Tfer to SNF 03 Condition: Good - Discharge Diagnosis/Problem(s) (1) Acute kidney injury SNOMED Code(s): 63839713, 52582990 ICD Code: N17.9 - ACUTE KIDNEY FAILURE, UNSPECIFIED Status: Acute (2) Mild bibasilar atelectasis SNOMED Code(s): 10549787 ICD Code: J98.11 - ATELECTASIS Status: Acute (3) Heart failure SNOMED Code(s): 91184141 ICD Code: I50.9 - HEART FAILURE, UNSPECIFIED Status: Acute Qualifiers: Heart failure type: diastolic Heart failure chronicity: acute Qualified Code(s): I50.31 - Acute diastolic (congestive) heart failure (4) Generalized weakness SNOMED Code(s): 06254717 ICD Code: R53.1 - WEAKNESS Status: Acute (5) Pulmonary fibrosis SNOMED Code(s): 60266628 ICD Code: J84.10 - PULMONARY FIBROSIS, UNSPECIFIED Status: Acute (6) Hypernatremia SNOMED Code(s): 344634757 ICD Code: E87.0 - HYPEROSMOLALITY AND HYPERNATREMIA Status: Resolved (7) Respiratory failure SNOMED Code(s): 088233792 ICD Code: J96.90 - RESPIRATORY FAILURE, UNSP, UNSP W HYPOXIA OR HYPERCAPNIA Status: Resolved Qualifiers: Chronicity: acute Respiratory failure complication: hypoxia Qualified Code(s): J96.01 - Acute respiratory failure with hypoxia (8) Pulmonary HTN SNOMED Code(s): 85349976 ICD Code: I27.20 - PULMONARY HYPERTENSION, UNSPECIFIED Status: Acute (9) History of atrial flutter SNOMED Code(s): 329009877 ICD Code: Z86.79 - PERSONAL HISTORY OF OTHER DISEASES OF THE CIRCULATORY SYSTEM Status: Acute (10) Urinary retention SNOMED Code(s): 463983435 ICD Code: R33.9 - RETENTION OF URINE, UNSPECIFIED Status: Acute - Patient Summary/Data Operative Procedure(s) Performed: None Complications: None Consults: Consultations 10/22/18 09:42 Consult to Case Management/Aircraft Delivery Checker [CONS] Routine 10/22/18 15:14 Consult to Respiratory Therapy [Respiratory Care Assess and Treatment] [CONS] Routine 10/22/18 15:16 Consult to Speech Language Pathology [TRUCKMAN Evaluation and Treatment] [CONS] Routine 10/24/18 10:14 Consult to Occupational Therapy [OT Evaluation and Treatment] [CONS] Routine Consult to Physical Therapy [PT Evaluation and Treatment] [CONS] Routine 10/26/18 11:47 Consult to Chief Human Resources Officer [CONS] Routine Labs Pending at D/C: None Recommended Follow-up Testing/Procedures: None Planned Operative Procedure(s) after DC: None Hospital Course: The patient was primarily admitted for generalized weakness associated with episode of diarrhea and vomiting. He received volume resuscitation and other means of supportive care. However due to aggressive hydration, he developed volume overload and subsequently went into acute heart failure with bilateral pleural effusion. His acute heart failure then prompted the use of lasix drip as well as higher levels of O2 due to pulmonary insufficiency. His did improve with diuretic use but his renal function gradually worsened. When I took over his care, I immediately discontinued his diuretic and stopped all nephrotic medications to give his kidneys some time to recover. Unfortunately, his lungs were no better then his kidneys so BIPAP was utilized. Thereafter, he slowly come around until he was back near his home O2 baseline. His hospital course was complicated by an episode wherein he was found altered and unresponsive. However with appropriate treatment and supportive care, he was able to slowly regain consciousness. Patient had been medically cleared for the past few days but once he was approved for transfer, he was then discharged to [facility] for further rehab. He was advised to follow up with his PCP after rehab and was further advised to come back and seek immediate care should his symptoms persist or get worse. The patient and his family at beside expressed understanding and in agreement with the plans as discussed above. All questions and concerns were answered. - Patient Instructions Diet: Usual Diet as Tolerated Fluid Restriction: 2000 mL Activity: As Tolerated Driving: Do Not Drive Showering/Bathing: May Shower Notify Provider of: Fever, Increased Pain, Swelling and Redness, Nausea and/or Vomiting Other/Special Instructions: - Please resume all home medications and continue routine home activities as tolerated. - Follow-up with primary care provider in 1 week with repeat BMP and Mg after discharge. - Recommed daily salt restriction. - Recommend follow chest x-ray on follow up appointment with your PCP. - Call or follow up with your PCP for any questions or concerns after discharge. - Come back or seek immediate care should your symptoms persist or get worse - Discharge Plan *PRESCRIPTION DRUG MONITORING PROGRAM REVIEWED*: Not Applicable *COPY OF PRESCRIPTION DRUG MONITORING REPORT IN PATIENT MARGARITO: Not Applicable Prescriptions/Med Rec: Apixaban [Eliquis] 2.5 mg PO BID #60 tablet Metoprolol Tartrate 12.5 mg PO BID #30 tablet Home Medications: Home Meds Bicalutamide [Casodex] 50 mg PO DAILY 06/08/14 [History] Doxazosin [Cardura] 1 mg PO DAILY 06/08/14 [History] Quinapril [Accupril] 40 mg PO DAILY 06/08/14 [History] Fish Oil/[place]-3 Fatty Acids [Fish Oil 1,000 MG] 0 mg PO DAILY 10/02/18 [History ] Furosemide [Lasix] 40 mg PO DAILY 10/02/18 [History] Multivitamin [Multivitamins] 1 cap PO DAILY 10/02/18 [History] NIFEdipine [Nifedipine ER] 60 mg PO DAILY 10/02/18 [History] Phenazopyridine HCl [Azo Urinary Pain Relief] 0 mg PO DAILY PRN 10/02/18 [ History] Rosuvastatin [Crestor] 20 mg PO BEDTIME 10/02/18 [History] Temazepam [Restoril] 15 mg PO BEDTIME 10/02/18 [History] Ibuprofen/Diphenhydramine Cit [Advil Pm Caplet] 2 each PO BEDTIME PRN 10/20/18 [ History] Loperamide [Imodium] 2 mg PO ASDIRECTED 10/20/18 [History] Melatonin 5 mg PO BEDTIME PRN 10/20/18 [History] Ubidecarenone [Co Q-10] 400 mg PO DAILY 10/20/18 [History] Aspirin/Caffeine [Julio C Back-Body 500-32.5 mg] 2 each PO Q6HR PRN MDD 8 caplets in 24 hrs 10/28/18 [History] Apixaban [Eliquis] 2.5 mg PO BID #60 tablet 10/31/18 [Rx] Metoprolol Tartrate 12.5 mg PO BID #30 tablet 10/31/18 [Rx] Oxygen Therapy Mode: Nasal Cannula Patient Handouts: Acute Kidney Injury, Adult, Weakness, [id number], Pleural Effusion, Acute Respiratory Failure, Adult, Heart Failure, [id number], Acute Urinary Retention, Male, Fhky-[id number], Dehydration, Elderly, Ucpo-[id number], Diarrhea, Adult, Lgiq-[id number] Referrals: Maurice Liz MD [Primary Care Provider] - - Discharge Summary/Plan Comment DC Time >30 min.: No Discharge Summary/Plan Comment: Discharge to [facility] under the services of Dr. Hidalgo - General Info Date of Service: 10/31/18 Admission Dx/Problem (Free Text: Admission Diagnosis/Problem Admission Diagnosis/Problem Dehydration Subjective Update: Follow Up Functional Status: Reports: Pain Controlled, Tolerating Diet, Ambulating, Urinating. Denies: New Symptoms - Review of Systems General: Reports: Fever, Weakness, Fatigue. Denies: Chills HEENT: Reports: No Symptoms Pulmonary: Denies: Shortness of Breath Cardiovascular: Reports: Edema. Denies: Chest Pain, Dyspnea on Exertion, Lightheadedness Gastrointestinal: Denies: Abdominal Pain, Nausea, Vomiting Genitourinary: Reports: No Symptoms Musculoskeletal: Reports: No Symptoms Skin: Reports: Bruising. Denies: Cyanosis, Mottled, Pallor, Diaphoresis Neurological: Reports: Difficulty Walking, Weakness, Gait Disturbance. Denies: Confusion Psychiatric: Denies: Depression, Anxiety, Agitation, Hallucinations Systems Review Comment: No overnight or acute issues. He rested well. He used BIPAP at night. He is on 2 -3L NC during the day. His renal function continues to improve. He has no complaints. - Patient Data Vitals - Most Recent: Last Vital Signs Temp 36.6 C 10/31/18 08:31 Pulse 91 10/31/18 08:31 Resp 29 H 10/31/18 08:31 BP 143/60 H 10/31/18 09:00 Pulse Ox 92 L 10/31/18 09:03 Weight - Most Recent: 104.326 kg I&O - Last 24 hours: Intake & Output 10/30/18 10/31/18 10/31/18 22:59 06:59 14:59 Intake Total 550 240 Output Total 655 660 275 Balance -105 -660 -35 Lab Results - Last 24 hrs: Laboratory Results - last 24 hr 10/31/18 10/31/18 Range/Units 05:07 05:07 WBC 7.97 (4.23-9.07) K/mm3 RBC 2.67 L (4.63-6.08) M/mm3 Hgb 8.2 L D (13.7-17.5) gm/L Hct 25.1 L (40.1-51.0) % MCV 94.0 H (79.0-92.2) fl MCH 30.7 (25.7-32.2) pg MCHC 32.7 (32.2-35.5) g/dl RDW Std Deviation 41.6 (35.1-43.9) fL Plt Count 120 L (163-337) K/mm3 MPV 11.2 (9.4-12.3) fl Neut % (Auto) 77.0 H (34.0-67.9) % Lymph % (Auto) 9.5 L (21.8-53.1) % Sherman % (Auto) 12.0 (5.3-12.2) % Eos % (Auto) 1.0 (0.8-7.0) Baso % (Auto) 0.0 L (0.1-1.2) % Neut # (Auto) 6.13 H (1.78-5.38) K/mm3 Lymph # (Auto) 0.76 L (1.32-3.57) K/mm3 Sherman # (Auto) 0.96 H (0.30-0.82) K/mm3 Eos # (Auto) 0.08 (0.04-0.54) K/mm3 Baso # (Auto) 0.00 L (0.01-0.08) K/mm3 Manual Slide Review Abnormal smear Sodium 147 H (136-145) mEq/L Potassium 3.7 (3.5-5.1) mEq/L Chloride 111 H (98-107) mEq/L Carbon Dioxide 27 (21-32) mEq/L Anion Gap 12.7 (5-15) BUN 155 H (7-18) mg/dL Creatinine 4.0 H (0.7-1.3) mg/dL Est Cr Clr Drug Dosing 14.43 mL/min Estimated GFR (MDRD) 14 (>60) mL/min BUN/Creatinine Ratio 38.8 H (14-18) Glucose 146 H (83-115) mg/dL Calcium 8.1 L (8.5-10.1) mg/dL Magnesium 2.1 (1.8-2.4) mg/dl Med Orders - Current: Current Medications Acetaminophen (Tylenol) 650 mg PO Q4H PRN PRN Reason: Pain (Mild 1-3)/fever Last Admin: 10/31/18 06:42 Dose: 650 mg Acetaminophen (Tylenol) 487.5 mg PO BEDTIME PRN PRN Reason: Insomnia Last Admin: 10/29/18 20:14 Dose: 487.5 mg Albuterol/Ipratropium (Duoneb 3.0-0.5 Mg/3 Ml) 3 ml NEB QIDRT [facility] Last Admin: 10/31/18 09:00 Dose: 3 ml Albuterol/Ipratropium (Duoneb 3.0-0.5 Mg/3 Ml) 3 ml NEB Q4H PRN PRN Reason: Wheezing Apixaban (Eliquis) 2.5 mg PO BID [facility] Last Admin: 10/31/18 08:25 Dose: 2.5 mg Diphenhydramine HCl (Benadryl) 25 mg PO BEDTIME PRN PRN Reason: Insomnia Last Admin: 10/30/18 20:10 Dose: 25 mg Doxazosin Mesylate (Cardura) 1 mg PO BEDTIME [facility] Last Admin: 10/30/18 20:10 Dose: 1 mg Lorazepam (Ativan) 0.25 mg IVPUSH Q4H PRN PRN Reason: Anxiety Metoprolol Tartrate (Lopressor) 5 mg IVPUSH Q4H PRN PRN Reason: Tachycardia Last Admin: 10/28/18 18:37 Dose: 5 mg Modafinil (Provigil) 100 mg PO DAILY [facility] Last Admin: 10/31/18 08:25 Dose: 100 mg Nifedipine (Procardia Xl) 60 mg PO DAILY [facility] Last Admin: 10/31/18 09:00 Dose: 60 mg Melatonin 5 Mg Tab (Own Med) 5 mg PO BEDTIME PRN PRN Reason: Insomnia Last Admin: 10/21/18 20:17 Dose: 5 mg Ondansetron HCl (Zofran Odt) 4 mg PO Q6H PRN PRN Reason: nausea, able to take PO Julio C Back And Body (Asa 500mg + Caffeine 32.5mg/Tab) Own Med 0 each PO BEDTIME [facility] Last Admin: 10/30/18 20:13 Dose: Not Given Ubidecarenone [Co Q- (10] 400 Mg Ptom) 0 each PO DAILY [facility] Polyethylene Glycol (Miralax) 17 gm PO DAILY PRN PRN Reason: Constipation Last Admin: 10/29/18 20:59 Dose: 17 gm Rosuvastatin Calcium (Crestor) 20 mg PO BEDTIME [facility] Last Admin: 10/30/18 20:10 Dose: 20 mg Sodium Chloride (Saline Flush) 10 ml FLUSH ASDIRECTED PRN PRN Reason: Keep Vein Open Last Admin: 10/25/18 09:24 Dose: 10 ml Discontinued Medications Bisacodyl (Dulcolax) 10 mg RECTAL DAILY [facility] Stop: 10/27/18 09:01 Last Admin: 10/27/18 10:35 Dose: Not Given Bisacodyl (Dulcolax) 10 mg RECTAL ONETIME ONE Stop: 10/25/18 14:23 Last Admin: 10/25/18 14:36 Dose: 10 mg Calcium Carbonate/Glycine (Tums) 500 mg PO Q2HR ONE Stop: 10/22/18 00:17 Last Admin: 10/22/18 00:22 Dose: 500 mg Diltiazem HCl (Cardizem) 10 mg IVPUSH ONETIME ONE Stop: 10/27/18 11:39 Last Admin: 10/27/18 12:29 Dose: 10 mg Flumazenil (Romazicon) 0.2 mg IVPUSH ONETIME ONE Stop: 10/27/18 07:47 Last Admin: 10/27/18 08:08 Dose: 0.2 mg Flumazenil (Romazicon) 0.2 mg IVPUSH ONETIME ONE Stop: 10/27/18 09:35 Last Admin: 10/27/18 10:22 Dose: 0.2 mg Flumazenil (Romazicon) 0.2 mg IVPUSH ONETIME ONE Stop: 10/27/18 15:55 Last Admin: 10/27/18 16:22 Dose: 0.2 mg Furosemide (Lasix) 40 mg PO DAILY [facility] Last Admin: 10/22/18 09:30 Dose: 40 mg Furosemide (Lasix) 40 mg IVPUSH DAILY [facility] Last Admin: 10/22/18 16:53 Dose: 40 mg Sodium Chloride (Normal Saline) 1,000 mls @ 1,000 mls/hr IV .BOLUS [facility] Last Admin: 10/20/18 07:59 Dose: 1,000 mls/hr Sodium Chloride (Normal Saline) 1,000 mls @ 100 mls/hr IV ASDIRECTED [facility] Last Admin: 10/21/18 05:51 Dose: 100 mls/hr Magnesium Sulfate 4 gm/ Premix 50 mls @ 12.5 mls/hr IV ONETIME ONE Stop: 10/21/18 18:06 Last Admin: 10/21/18 14:30 Dose: 12.5 mls/hr Dextrose/Sodium Chloride (Dextrose 5%-1/2 Ns) 1,000 mls @ 75 mls/hr IV ASDIRECTED [facility] Last Admin: 10/21/18 17:54 Dose: 75 mls/hr Sodium Chloride (Normal Saline) 1,000 mls @ 75 mls/hr IV ASDIRECTED [facility] Piperacillin Sod/Tazobactam (Sod 4.5 gm/ Sodium Chloride) 100 mls @ 200 mls/hr IV ONETIME ONE Stop: 10/22/18 15:59 Last Admin: 10/22/18 16:56 Dose: 200 mls/hr Piperacillin Sod/Tazobactam (Sod 4.5 gm/ Sodium Chloride) 100 mls @ 25 mls/hr IV Q8H [facility] Piperacillin Sod/Tazobactam (Sod 4.5 gm/ Sodium Chloride) 100 mls @ 25 mls/hr IV Q8H [facility] Last Admin: 10/23/18 11:39 Dose: Not Given Furosemide 100 mg/ Sodium (Chloride) 100 mls @ 4 mls/hr IV TITRATE [facility]; Protocol Last Infusion: 10/23/18 18:57 Dose: 0 mls/hr Piperacillin Sod/Tazobactam (Sod 4.5 gm/ Sodium Chloride) 100 mls @ 25 mls/hr IV Q12H [facility] Last Admin: 10/25/18 13:53 Dose: 25 mls/hr Sodium Chloride (Normal Saline) 1,000 mls @ 50 mls/hr IV ASDIRECTED [facility] Last Infusion: 10/24/18 09:38 Dose: 25 mls/hr Sodium Chloride (Normal Saline) 1,000 mls @ 25 mls/hr IV ASDIRECTED [facility] Ibuprofen (Motrin) 400 mg PO Q8H PRN PRN Reason: pain Last Admin: 10/26/18 20:47 Dose: 400 mg Ibuprofen (Motrin) 200 mg PO Q8H PRN PRN Reason: pain Lactulose (Cephulac) 30 gm PO BID [facility] Last Admin: 10/28/18 09:44 Dose: Not Given Lactulose (Cephulac) 20 gm PO ONETIME ONE Stop: 10/25/18 14:22 Last Admin: 10/25/18 14:35 Dose: 20 gm Lisinopril (Prinivil) 20 mg PO BEDTIME [facility] Lisinopril (Prinivil) 20 mg PO BEDTIME [facility] Loperamide HCl (Imodium) 4 mg PO NOW STA Stop: 10/21/18 10:56 Last Admin: 10/21/18 11:15 Dose: 4 mg Methylprednisolone Sodium Succinate (Solu-Medrol) 40 mg IVPUSH ONETIME ONE Stop: 10/23/18 23:01 Last Admin: 10/23/18 23:23 Dose: 40 mg Methylprednisolone Sodium Succinate (Solu-Medrol) 40 mg IVPUSH Q12H [facility] Stop: 10/25/18 21:01 Last Admin: 10/25/18 20:00 Dose: 40 mg Metoclopramide HCl (Reglan) 5 mg IVPUSH ONETIME ONE Stop: 10/25/18 14:24 Last Admin: 10/25/18 14:35 Dose: 5 mg Metolazone (Zaroxolyn) 2.5 mg PO BIDDIURETIC [facility] Last Admin: 10/25/18 05:47 Dose: 2.5 mg Metolazone (Zaroxolyn) 2.5 mg PO ONETIME ONE Stop: 10/24/18 15:01 Last Admin: 10/24/18 16:57 Dose: 2.5 mg Miscellaneous Information (Remove Patch) 1 ea TRDERM Q72H [facility] Stop: 10/31/18 13:01 Nifedipine (Procardia Xl) 60 mg PO DAILY [facility] Last Admin: 10/21/18 09:38 Dose: 60 mg Rosuvastatin 20mg (TabOwn Med) 1 each PO BEDTIME [facility] Last Admin: 10/21/18 20:17 Dose: 1 each Quinapril 40mg Tab (Own Med) 1 each PO BEDTIME [facility] Last Admin: 10/21/18 20:16 Dose: 1 each Nifedipine 60mg Tab (ErOwn Med) 1 each PO DAILY [facility] Non-Formulary Medication (Aspirin/Caffeine [Julio C Back-Body 500-32.5 Mg]) 2 each PO BEDTIME PRN PRN Reason: Pain Non-Formulary Medication (Ubidecarenone [Co Q-10]) 400 mg PO DAILY [facility] Ondansetron HCl (Zofran) 4 mg IVPUSH ONETIME ONE Stop: 10/20/18 07:48 Last Admin: 10/20/18 07:59 Dose: 4 mg Polyethylene Glycol (Miralax) 17 gm PO DAILY [facility] Last Admin: 10/24/18 20:27 Dose: 17 gm Rosuvastatin Calcium (Crestor) 20 mg PO BEDTIME [facility] Scopolamine (Transderm-Scop) 1.5 mg TOP ONETIME ONE Stop: 10/28/18 13:05 Last Admin: 10/28/18 14:25 Dose: 1.5 mg Temazepam (Restoril) 15 mg PO BEDTIME PRN PRN Reason: Insomnia Last Admin: 10/26/18 20:47 Dose: 15 mg - Exam General: Reports: Alert, Oriented, Cooperative, No Acute Distress HEENT: Reports: Pupils Equal, Pupils Reactive, EOMI, Mucous Membr. Moist/[place] Neck: Reports: Supple Lungs: Reports: Normal Respiratory Effort, Decreased Breath Sounds, Crackles Cardiovascular: Reports: Regular Rate, Regular Rhythm GI/Abdominal Exam: Normal Bowel Sounds, Soft, Non-Tender, No Organomegaly, No Distention, No Abnormal Bruit, No Mass (Male) Exam: Other (indwelling villalobos catheter) Rectal (Males) Exam: Deferred Back Exam: Reports: Normal Inspection, Decreased Range of Motion Extremities: Normal Inspection, Normal Range of Motion, Non-Tender, Normal Capillary Refill, Pedal Edema (right foot) Skin: Reports: Warm, Dry, Intact Neurological: Reports: No New Focal Deficit (limited but grossly intact). Denies: Normal Gait Psy/Mental Status: Reports: Alert, Normal Affect, Normal Mood
[2018-10-31 16:32] VITALS: BP 140/59
[2018-11-01] MEDS ORDERED: UBIDECARENONE 400 MG PO SCH ×2 (09:00)
== END 2018-10-31 16:30 | DRG 640 ==
LOC: JD.ED 07:20 → JD.MS 11:02 → INTOOBSV 11:02 → OBSVTOIN 10-21 14:07 → JD.ICU 10-23 08:29
PROVIDERS: ADMIT Internal Medicine Cardiovascular Disease; ATTEND Internal Medicine Cardiovascular Disease
PROC: 5A09357 Assistance with Respiratory Ventilation, Less than 24 Consecutive Hours, Continuous Positive Airway Pressure (ICD-10-PCS; principal; 2018-10-23)
DX: E86.0 Dehydration (principal); N28.89 Other specified disorders of kidney and ureter; I50.31 Acute diastolic (congestive) heart failure; J96.01 Acute respiratory failure with hypoxia; J69.0 Pneumonitis due to inhalation of food and vomit; I10 Essential (primary) hypertension; N17.9 Acute kidney failure, unspecified; I13.0 Hypertensive heart and chronic kidney disease with heart failure and stage 1 through stage 4 chronic kidney disease, or unspecified chronic kidney disease; I48.92 Unspecified atrial flutter; R19.7 Diarrhea, unspecified; J67.0 Farmer's lung; M25.512 Pain in left shoulder; R50.9 Fever, unspecified; R06.02 Shortness of breath; M54.2 Cervicalgia; R53.1 Weakness; M25.511 Pain in right shoulder; E78.00 Pure hypercholesterolemia, unspecified; J84.10 Pulmonary fibrosis, unspecified; K59.09 Other constipation; N18.9 Chronic kidney disease, unspecified; E87.0 Hyperosmolality and hypernatremia; I27.20 Pulmonary hypertension, unspecified; R33.9 Retention of urine, unspecified; G62.9 Polyneuropathy, unspecified; E78.5 Hyperlipidemia, unspecified; E87.2 Acidosis; R41.82 Altered mental status, unspecified; T42.4X5A Adverse effect of benzodiazepines, initial encounter; Z66 Do not resuscitate; Z99.81 Dependence on supplemental oxygen; Z85.46 Personal history of malignant neoplasm of prostate; Z79.899 Other long term (current) drug therapy; Z87.891 Personal history of nicotine dependence; Z86.79 Personal history of other diseases of the circulatory system
CPT/HCPCS: 36415 ×2; 71045; 80053 ×2; 81001; 83690; 83735; 84484; 85025 ×2; 87493 ×2; 87641; 87899; 93005; 96361; 96374; 97110; 97161; 99285; A9270 ×9; J2405; J7040 ×4; 36600; 51702; 71046; 71046-26; 71250; 71250-26; 76770; 76770-26; 80048; 82553; 82803; 82962; 83036; 83605; 83880; 86140; 86738; 87046; 87427; 87486; 87581; 87632; 87798; 87804; 89055; 92610-GN; 93010; 93306; 94640; 94660; 94667; 94668; 94761; 97124-GP; 97162-GP; 97166-GO; 97530-GO; 97530-GP; 99284; J1940; J2543; J2765; J2920; J3475; J3490; J7030; J7042; J7620-GY